=== PATIENT | female | born 1975 | race Caucasian/White ===

== ENCOUNTER 2023-03-05 23:14 | Emergency (ER) | payer OTHER, SELFPAY ==
[2023-03-05 23:20] VITALS: BP 148/82; PULSE 105; O2SAT 98
[2023-03-05 23:33] VITALS: BMI 28.1
--- NOTE | 2023-03-06 00:16 | ED.ALCOHOL ---
HPI - Alcohol General Chief Complaint: ETOH/Substance Use Stated Complaint: ETOH, VOMITING Time Seen by Provider: 03/06/23 00:16 Source: patient and EMS Mode of arrival: EMS Limitations: no limitations History of Present Illness HPI narrative: 48-year-old female came in by ambulance after drank alcohol last night. Patient had her 25th reunion anniversary and got to drink last night, patient felt nauseous and had 1 time vomiting. Patient now admitted that she has strong and feeling embarrassed about it patient would like to go home, able to tolerate p.o. intake with no nausea or vomiting. Patient has no abdominal pain. Review of Systems Review of Systems: All other systems are reviewed and are negative Constitutional: Reports as per HPI and Reports no additional constitutional complaints Eyes: Reports as per HPI and Reports no additional eye complaints Reports system reviewed and no additional complaints, except as documented Cardiovascular: Reports as per HPI and Reports no additional cardiovascular complaints Respiratory: Reports as per HPI and Reports no additional respiratory complaints Gastrointestinal: Reports as per HPI and Reports no additional gastrointestinal complaints Genitourinary: Reports no additional female genitourinary complaints Musculoskeletal: Reports no additional musculoskeletal complaints Skin/Breast: Reports system reviewed and no additional complaints, except as docu Psychiatric: Reports no additional psychiatric complaints Endocrine: Reports no additional endocrine complaints Hematologic/Lymphatic: Reports no additional hematologic/lymphatic complaints Allergic/Immunologic: Reports no additional allergic/immunologic complaints Reports system reviewed and no additional complaints, except as documented and Reports Abnormal speech present Physical Exam ED Vital Signs: BMI result Body Mass Index 28.1 Vital signs have been reviewed and appear to be correct. Blood pressure elevated. Heart rate normal. Respiratory rate normal. Temperature normal. Oxygen saturation normal. Appearance: Alert. Oriented X3. No acute distress. Head: Normal external exam. Normocephalic. Atraumatic. No Burden signs noted. No raccoon eyes noted Eyes: PERRLA. EOMI. Conjunctiva and sclera normal. Eyelids normal. ENT: TM's Normal. Pharynx normal. Uvula midline. Moist mucous membranes. No trismus noted. No drooling noted. No muffled voice noted. Neck: Normal inspection. Neck supple. FROM. No adenopathy. Thyroid Normal. No meningeal signs. No neck mass noted. CVS: Normal heart rate and rhythm. Heart sound normal. No murmurs noted. Pulses normal throughout. Respiratory: No respiratory distress. Painless inspiration. Breath sounds normal. No wheezes/rales/rhonchi noted. Chest nontender. No accessory muscle usage noted or decreased air movement noted. Abdomen: Soft and nontender. Bowel sounds normal in all 4 quadrants. No distention noted. No organomegaly noted. No visible injury noted. Back: No CVA tenderness. Full range of motion noted. Skin: Skin warm and dry. Normal skin color. Normal skin turgor. No rashes/lesions/lacerations noted. Extremities: No lower extremity edema. Extremities exhibit normal range of motion. Extremities nontender. Neuro: Oriented X 3. Cranial nerve exam: II-XII are grossly intact No motor deficit. No sensory deficit. Reflexes normal. Course Reevaluation(s) Reevaluation #1: 48-year-old female got drunk after drinking lots of alcohol last night, patient now feels better and able to tolerate p.o. intake with no nausea or vomiting patient will be discharged with family member to drive her home. Time: 00:25 Medical Decision Making Differential Diagnosis Differential Diagnoses: The differential diagnosis associated with the presentation includes (Alcohol intoxication, mild alcoholic gastritis, vomiting.) Admission/Observation Consideration of admission/observation: Escalation of care including admission/observation considered Discharge Plan Discharge Clinical Impression: Alcoholic intoxication Patient Disposition: Home, Self-Care Instructions: Alcohol Intoxication (ED)
[2023-03-06 00:36] VITALS: BP 121/68; PULSE 110; RESP 18; TEMP 36.2; O2SAT 100
--- NOTE | 2023-03-06 00:36 | MHC.EDTECH ---
Pt vital signs taken. Pt has two visitors at bedside.
== END 2023-03-06 01:04 | disposition home or self-care (01) ==
PROVIDERS: Emergency Provider Emergency Medicine
DX: F10.129 Alcohol abuse with intoxication, unspecified (principal); Y90.9 Presence of alcohol in blood, level not specified
CPT/HCPCS: 99282; 99284

== ENCOUNTER 2023-07-13 12:33 | Outpatient (REF) | payer MEDICAID, SELFPAY ==
--- NOTE | ~2023-07-13 | XR_ITS ---
EXAMINATION: BILATERAL SHOULDERS, BILATERAL ANKLES CLINICAL INFORMATION: Bilateral shoulder and bilateral ankle pain. COMPARISON: None available. TECHNIQUE: 3 views each shoulder, 3 views each ankle. FINDINGS: LEFT SHOULDER: The glenohumeral joint is intact. Gudy-lj-psoybjsk degenerative changes are seen at the AC joint. There is a small area of calcification at the insertion of the supraspinatus tendon on the humeral head. No fractures or subluxations. RIGHT SHOULDER: The glenohumeral joint is intact with the exception of a tiny osteophyte at the inferior glenoid. Xurx-cs-rflhrnmp degenerative changes are seen at the AC joint. There is a tiny area of calcification at the insertion of the supraspinatus tendon on the humeral head. No fractures or subluxations. LEFT ANKLE: Degenerative changes are present with some osteophytes at the tip of the medial malleolus. Some irregularity at the tip of the lateral malleolus with some well-corticated osseous densities probably secondary to remote trauma. A small ankle joint effusion may be present. No acute fractures or dislocations. Tiny plantar calcaneal spur is noted. RIGHT ANKLE: Aside from the presence of a tiny plantar calcaneal spur, no significant bone or joint abnormality is seen. XR/XR ankle RT min 3V IMPRESSION: 1. Degenerative changes in both shoulders with calcific tendinitis. 2. Degenerative changes in the left ankle with probable remote trauma. 3. Tiny plantar calcaneal spurs.
--- NOTE | ~2023-07-13 | XR_ITS ---
EXAMINATION: BILATERAL SHOULDERS, BILATERAL ANKLES CLINICAL INFORMATION: Bilateral shoulder and bilateral ankle pain. COMPARISON: None available. TECHNIQUE: 3 views each shoulder, 3 views each ankle. FINDINGS: LEFT SHOULDER: The glenohumeral joint is intact. Hbie-vf-ofiyfaiy degenerative changes are seen at the AC joint. There is a small area of calcification at the insertion of the supraspinatus tendon on the humeral head. No fractures or subluxations. RIGHT SHOULDER: The glenohumeral joint is intact with the exception of a tiny osteophyte at the inferior glenoid. Kfuy-xk-hmfqjeru degenerative changes are seen at the AC joint. There is a tiny area of calcification at the insertion of the supraspinatus tendon on the humeral head. No fractures or subluxations. LEFT ANKLE: Degenerative changes are present with some osteophytes at the tip of the medial malleolus. Some irregularity at the tip of the lateral malleolus with some well-corticated osseous densities probably secondary to remote trauma. A small ankle joint effusion may be present. No acute fractures or dislocations. Tiny plantar calcaneal spur is noted. RIGHT ANKLE: Aside from the presence of a tiny plantar calcaneal spur, no significant bone or joint abnormality is seen. XR/XR ankle LT min 3V IMPRESSION: 1. Degenerative changes in both shoulders with calcific tendinitis. 2. Degenerative changes in the left ankle with probable remote trauma. 3. Tiny plantar calcaneal spurs.
--- NOTE | ~2023-07-13 | XR_ITS ---
EXAMINATION: BILATERAL SHOULDERS, BILATERAL ANKLES CLINICAL INFORMATION: Bilateral shoulder and bilateral ankle pain. COMPARISON: None available. TECHNIQUE: 3 views each shoulder, 3 views each ankle. FINDINGS: LEFT SHOULDER: The glenohumeral joint is intact. Olvi-uq-jecbpmzh degenerative changes are seen at the AC joint. There is a small area of calcification at the insertion of the supraspinatus tendon on the humeral head. No fractures or subluxations. RIGHT SHOULDER: The glenohumeral joint is intact with the exception of a tiny osteophyte at the inferior glenoid. Ucmi-fq-tyomwdmm degenerative changes are seen at the AC joint. There is a tiny area of calcification at the insertion of the supraspinatus tendon on the humeral head. No fractures or subluxations. LEFT ANKLE: Degenerative changes are present with some osteophytes at the tip of the medial malleolus. Some irregularity at the tip of the lateral malleolus with some well-corticated osseous densities probably secondary to remote trauma. A small ankle joint effusion may be present. No acute fractures or dislocations. Tiny plantar calcaneal spur is noted. RIGHT ANKLE: Aside from the presence of a tiny plantar calcaneal spur, no significant bone or joint abnormality is seen. XR/XR shoulder RT min 2V IMPRESSION: 1. Degenerative changes in both shoulders with calcific tendinitis. 2. Degenerative changes in the left ankle with probable remote trauma. 3. Tiny plantar calcaneal spurs.
--- NOTE | ~2023-07-13 | XR_ITS ---
EXAMINATION: XR LUMBOSACRAL SPINE CLINICAL INFORMATION: Low back pain. COMPARISON: None available. TECHNIQUE: Three views of the lumbosacral spine. FINDINGS: There are some mild spondylitic endplate changes with some osteophytes, however vertebral body heights and disc spaces are well maintained. No bony destructive lesions, fractures or subluxations are seen. XR/XR lumbar spine 2-3V IMPRESSION: Mild spondylitic changes. No acute finding.
--- NOTE | ~2023-07-13 | XR_ITS ---
EXAMINATION: BILATERAL SHOULDERS, BILATERAL ANKLES CLINICAL INFORMATION: Bilateral shoulder and bilateral ankle pain. COMPARISON: None available. TECHNIQUE: 3 views each shoulder, 3 views each ankle. FINDINGS: LEFT SHOULDER: The glenohumeral joint is intact. Toob-yk-cugllqqs degenerative changes are seen at the AC joint. There is a small area of calcification at the insertion of the supraspinatus tendon on the humeral head. No fractures or subluxations. RIGHT SHOULDER: The glenohumeral joint is intact with the exception of a tiny osteophyte at the inferior glenoid. Hijj-hm-mpsjqhtc degenerative changes are seen at the AC joint. There is a tiny area of calcification at the insertion of the supraspinatus tendon on the humeral head. No fractures or subluxations. LEFT ANKLE: Degenerative changes are present with some osteophytes at the tip of the medial malleolus. Some irregularity at the tip of the lateral malleolus with some well-corticated osseous densities probably secondary to remote trauma. A small ankle joint effusion may be present. No acute fractures or dislocations. Tiny plantar calcaneal spur is noted. RIGHT ANKLE: Aside from the presence of a tiny plantar calcaneal spur, no significant bone or joint abnormality is seen. XR/XR shoulder LT min 2V IMPRESSION: 1. Degenerative changes in both shoulders with calcific tendinitis. 2. Degenerative changes in the left ankle with probable remote trauma. 3. Tiny plantar calcaneal spurs.
== END 2023-07-13 12:34 | disposition home or self-care (01) ==
LOC: HO.HMGCX 12:33
PROVIDERS: PCP Internal Medicine; Visit Provider Internal Medicine
DX: M54.50 Low back pain, unspecified (principal); M25.572 Pain in left ankle and joints of left foot; M25.571 Pain in right ankle and joints of right foot; M25.511 Pain in right shoulder; M25.512 Pain in left shoulder
CPT/HCPCS: 72100; 73030; 73610

== ENCOUNTER 2023-08-04 09:05 | Outpatient (REF) | payer MEDICAID, SELFPAY | END 2023-08-04 09:06 | disposition home or self-care (01) | LOC: HO.MAMMO 09:05 | PROVIDERS: PCP Internal Medicine; Visit Provider Internal Medicine | DX: Z12.31 Encounter for screening mammogram for malignant neoplasm of breast (principal) | CPT/HCPCS: 77063; 77067 ==

== ENCOUNTER → 2023-08-04 09:30 | Outpatient (BNV) | payer MEDICAID, SELFPAY | PROVIDERS: PCP Internal Medicine; Visit Provider Radiology Diagnostic Radiology | DX: Z12.31 Encounter for screening mammogram for malignant neoplasm of breast (principal) | CPT/HCPCS: 77063; 77067 ==

== ENCOUNTER 2023-09-15 07:36 | Outpatient (AMB) | payer MEDICAID, SELFPAY ==
[2023-09-15 07:52] VITALS: BP 122/74; BMI 28.1
--- NOTE | 2023-09-15 07:52 | MHC.OFFVIS ---
Vital Signs 09/15/23 07:52 Height 5 ft 9 in Weight 190 lb BMI 28.1 BP 122/74 Intake Visit Reasons: new patient Annual Intake Note: no concerns Manager Psychology Required: No Information Interpreted: non-clinical & clinical Sterile Processing Manager: Sterile Processing Manager Present (Miracle RAMIREZ) Accompanied by: Self / Same As Patient Allergies morphine Allergy (Intermediate, Verified 09/15/23 07:55) Headache Is last menstrual period known: No (hysterectomy) HPI Comments Details: Presenting for annual exam. No complaints. Last Pap/HPV was a year ago was negative, no history of abnormal Pap smear, the patient is status post TVH for prolapse Last Mammogram was BI-RADS 1 in 08/02 Last Colonoscopy was a year ago, the recommendation according to patient was to repeat in 5 years, the records are not available [facility] Medical History (Updated 09/15/23 @ 08:25 by Roger Cruz MD) Kidney stones Arthritis Asthma Diabetes Migraine Surgical History (Updated 09/15/23 @ 08:26 by Roger Cruz MD) History of hysterectomy Family History Mother Asthma Father Heart attack Paternal Grandmother Diabetes Social History Household Members: Children Housing: Apartment Alcohol intake: current Alcohol intake frequency: holidays/special occasions only Patient Tobacco Use Status: Former Tobacco user Tobacco use type: Cigarette Current occupational status: employed 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 Sexually active: Yes Sexual orientation: Straight/Heterosexual Gender identity: Female Female Reproductive History Menstrual Menopause type: surgical Total pregnancies: 5 Full term: 3 Number of Living Children: 3 Ab spontaneous: 2 Date of Mammogram: 08/04/23 Review of Systems Const All systems reviewed & are unremarkable except as noted in HPI and below Card Reports as per HPI and Reports no additional complaints Resp Reports as per HPI and Reports no additional complaints GI Reports as per HPI and Reports no additional complaints Reports as per HPI Physical Exam Vital Signs: Last Vital Signs BP 122/74 09/15/23 07:52 BMI result Body Mass Index 28.1 Const General: cooperative, healthy appearing and comfortable General: Yes bladder normal to palpation External Female Exam: No lesion Speculum Exam - Vagina: normal appearance of the vagina, normal vaginal discharge and not erythematous Speculum Exam - Cervix: Cervix absent Bimanual exam- vagina & uterus: bladder normal to palpation and uterus absent Bimanual Exam- Adnexa, other: Other (No masses detected) Assessment & Plan Assessment & Plan (1) Well woman exam: Code(s): Z01.419 - Encounter for gynecological examination (general) (routine) without abnormal findings Category: Medical Plan: Cotesting not indicated. Instructions given the patient to schedule next screening Mammogram in 08/03. Counseled the patient about the recommended dietary allowance of 1000 mg of Calcium & 600 IU of vitamin D. The patient was instructed to perform monthly self-breast exams and to schedule an annual exam in a year; All questions answered and the patient verbalized understanding. Instructed the patient to schedule annual exam in a year Coding Level of Care Code New Pt Prev Care 40-64y(67764) Diagnoses Well woman exam Z01.419
== END 2023-09-15 08:31 | disposition home or self-care (01) ==
PROVIDERS: PCP Internal Medicine; Visit Provider Obstetrics & Gynecology
DX: Z01.419 Encounter for gynecological examination (general) (routine) without abnormal findings (principal)
CPT/HCPCS: 99386

== ENCOUNTER → 2023-09-15 07:36 | Outpatient (BNVA) | payer MEDICAID, SELFPAY | PROVIDERS: PCP Internal Medicine; Visit Provider Obstetrics & Gynecology | DX: Z01.419 Encounter for gynecological examination (general) (routine) without abnormal findings (principal) | CPT/HCPCS: 99386 ==

== ENCOUNTER → 2024-02-08 08:00 | Outpatient (BNVA) | payer OTHER, SELFPAY | PROVIDERS: PCP Internal Medicine; Visit Provider Internal Medicine | DX: Z13.89 Encounter for screening for other disorder (principal) | CPT/HCPCS: 73130; 99202 ==

== ENCOUNTER → 2024-02-10 08:01 | Outpatient (BNVA) | payer OTHER, SELFPAY | PROVIDERS: PCP Internal Medicine; Visit Provider Internal Medicine | DX: Z13.89 Encounter for screening for other disorder (principal) | CPT/HCPCS: 99213 ==

== ENCOUNTER 2024-06-01 06:19 | Outpatient (REF) | payer MEDICAID, SELFPAY ==
[2024-06-01 06:11] LABS: MANUAL DIFF FLAG NO
--- OUTSIDE RECORDS SUMMARY | 2024-06-01 06:21 | XMS_ITS ---
Author Organization [facility] Address [address] [facility] [address] [place] [id number] Care Team Providers Care Sporting Goods Sales Associate Name Role Phone Frank Duffy MD Primary Care Provider Unavailab Isra Hsieh Unavailable [phone] REASON FOR VISIT please lock 05-30-24 note Encounters Encounter Location Date Provider Diagnosis [facility] [address] [facility] [address] [place] [phone] 05/31/2024 Isra Muñoz PLAN OF TREATMENT Next Appt Details Provider Name:Isra Muñoz , 06/01/2024 03:00:00 PM, [address] [place] [address] , [place], [place], [phone],
--- OUTSIDE RECORDS SUMMARY | 2024-06-01 06:21 | XMS_ITS ---
Author Organization [facility] Address [address] [place] [address] Care Team Providers Care Blending Tank Tender Helper Name Role Phone Frank Duffy MD Primary Care Provider Isra Stephenson Unavailable [phone] REASON FOR VISIT Patient presents today for [...] pain, epigastric (R10.13) Active confirmed Epigastric pain (00008940) Problem Chronic GERD (K21.9) Active confirmed Gastroesophagea l reflux disease (disorder) (100750741) VITAL SIGNS BMI 27.61 kg/m2 05/30/2024 Blood pressure systolic 001 mm Hg 05/30/19 25 Blood pressure diastolic 01 mm Hg 025 Height 69 in 05/30/2024 Temperature 98.0 degrees Fahrenheit 05/30/19 25 Weight 187 lbs 05/30/2024 Encounters Encounter Location Date Provider Diagnosis [facility] [address] [place] [address] 05/30/2024 Isra Muñoz Abdominal pain, epigastric R10.13 [...] UPPER GI ENDOSCOPY 05/30/2024 Next Appt Details Follow Up: prn, Reason: Provider Name:Isra Muñoz , 06/01/2024 03:00:00 PM, [address] [place] [address] , [place], [place], [phone], Progress Notes * Examination Category Sub-Category Detail Notes General Examination GENERAL APPEARANCE: pleasant , well nourished, well developed, in no acute distress HEAD: EYES: sclera non-icteric EARS: NOSE: THROAT: NECK/THYROID: no cervical lymphade nopathy, neck supple HEART: S1, S2 normal CHEST: LUNGS: clear to auscultatio n bilaterally ABDOMEN: normal bowel sounds, no guarding or rigidity, no guarding or rigidity, no masses palpable, soft, nontender, nondistended NEUROLOGIC: alert and oriented SKIN: nonjaundiced, no spi jeferson angiomata EXTREMITIES: no edema PERIPHERAL PULSES: BACK: BREASTS: MUSCULOSKELETAL: MALE GENITOURINARY: LYMPH NODES: RECTAL EXAM: FEMALE GENITOURINARY: ORAL CAVITY: mucosa moist
--- OUTSIDE RECORDS SUMMARY | 2024-06-01 06:21 | XMS_ITS | Patient Health Record ---
Author Organization [facility] Address [address] [facility] [address] [place] [address] Care Team Providers Care Compliance Review Officer Name Role Phone Frank Duffy MD Primary Care Provider Unavailab Isra Hsieh Unavailable [phone] REASON FOR REFERRAL Referring Provider First Name Frank Referring Provider Last Name Tati Referring Provider Speciality Internal M edicine Referred Organization [facility] Referred Provider Isra Muñoz Referred Address [address] [place] [address],[address],[place], [place],[address], Referred Provider Specialty Gastroentero logy Referral Priority Routine MEDICATIONS Medication SIG (Take, Route, Frequency, Duration) Notes Start Date End Date Status Zofran 4 MG 1 tab Orally qid for as needed Active metFORMIN HCl 1000 MG 1 tablet with a me al Orally Once a day for 30 days 05/30/2024 Active Protonix 40 MG 1 tablet 1/2 to 1 ho ur before morning meal Orally Once a day for 30 day(s) Active Vicodin ES Active Arnuity Ellipta 100 [...] as needed Orally every 12 hrs Active IMMUNIZATIONS Vaccine Route Administration Date Status [...] pain, epigastric (R10.13) Active confirmed Epigastric pain (83920243) Problem Chronic GERD (K21.9) Active confirmed Gastroesophagea l reflux disease (disorder) (379943277) VITAL SIGNS Temperature 98.0 degrees Fahrenheit 05/30/2024 Blood pressure diastolic 01 mm Hg 05/30/2024 Height 69 in 05/30/2024 Blood pressure systolic 001 mm Hg 05/30/2024 Weight 187 lbs 05/30/2024 BMI 27.61 kg/m2 05/30/2024 Encounters Encounter Location Date Provider Diagnosis [facility] [place] [address] [place] [id number] 06/01/2024 Isra Muñoz [facility] [address] [place] [address] 05/30/2024 Isra Muñoz Abdominal pain, epigastric R10.13 and Chronic GERD K21.9 [facility] [address] [place] [address] 05/31/2024 Isra Muñoz ASSESSMENTS Encounter Date Diagnosis Assessment Notes Treatment Notes Treatment Clinical Notes 05/30/2024 Abdominal pain, epigastric (ICD-10 - R10.13) 05/30/2024 Chronic GERD (ICD-10 - K21.9) PLAN OF TREATMENT Pending Test Test Name Order Date LIVER PROFILE 05/30/2024 CBC w DIFF 05/30/2024 Lipase 05/30/2024 US abdomen complete 05/30/2024 Future Test Test Name Order Date UPPER GI ENDOSCOPY 05/30/2024 Next Appt Details Provider Name:Isra Jayne Muñoz , 06/01/2024 03:00:00 PM, [address] [place] [address] , [place], [place], [phone], Insurance Providers Payer Name Payer Address Payer Phone Subscriber Number Group Number Insured Name Patient Relationship to Insured Coverage Start Date Coverage End Date MEDICAID OF [employer] [address] [place]OB [phone] [id number] BO WAKEFIELD Self - patient is the insured MEDICAL (GENERAL) HISTORY Medical History History ICD Code NIDDM Asthma Denies NV,CVA,renal disease Kidney stones Muscle spasms, tendonitis, arthritis Colonoscopy in 2021 in [facility]--polyps removed--recommended a F/U in 5-7 years Surgical History Surgery Date(Month/Year) Hysterectomy D&C
--- OUTSIDE RECORDS SUMMARY | 2024-06-01 06:21 | XMS_ITS | Continuity of Care Document ---
Author Organization [facility] Address [address] [place] [address] Phone Care Team Providers Care Truck Farmer Name Role Phone Roly Myles MD Unavailable [facility], [address] [facility], [place], [place], [id number], [place] tel:[phone] [facility] Carm[facility]aels left ankle 2011 previous ankle fracture (chief complaint) Sprain/strai n, ankle NOSRupture, tendons, foot/ankle NECDerangeme nt, other joint NEC, ankle/ 4 Shar Tyson. [address] [facility] [address], [address], [place], [place], [id number], [place]. tel:[phone] Referring Provider: Pepper COLON , [address], [place], [address]. tel:[phone] [facility], [address] [facility] [address] [place] [address], [place], [place], [id number], [place] tel:[phone] [facility] No Information 4 Shar Tyson. [address], [address], [place], [place], [address], [place]. tel:[phone] [facility], [address] [facility] [address] [facility] [address], [place], [place], [id number], [place] tel:[phone] [facility] No Information 4 Shar Tyson. [address] [facility] [address], [address], [place], [place], [address], [place]. tel:[phone] Office/outpatie nt visit,est, Strt Fwd [facility], [address], [place], [place], [id number], [place] tel:[phone] [facility] Sprain/strai n, ankle NOS 2 No Information Office/outpatie nt visit,new, Straightforward [facility], [address] [facility] [address], [place], [place], [id number], [place] tel:[phone] [facility] Sprain/strai n, ankle NOSSprain/st rain, ankle NOSSprain/st rain, ankle NOS 2 Sabrowski PAC Tom. [address], [address], [place], [place], [id number], [place]. tel:[phone] [facility], [address] [facility] [address], [place], [place], [id number], [place] tel:[phone] [facility] No Information 2 Sabrhondaki PAC Tom. [address], [address], [place], [place], [id number], [place]. tel:[phone] Family History Family Member Type Diagnosis Age [...] ID Authoriza tion(s) [employer] PPO 26 CI [id number] Social History Type Description Quantity Date Captured [...]
[2024-06-01 07:43] LABS: Basophils Absolute Auto 0.1 X10*3/uL (0.0-0.2); Basophils Percent Auto 0.7 % (0-2); Eosinophils Absolute Auto 0.4 X10*3/uL (0.0-0.4); Hematocrit 31.6 % (37.0-47.0); Hemoglobin 9.9 g/dl (12.0-16.0); Imm Gran Abs Auto 0.02 X10*3/uL (0.00-0.03); Imm Gran Pct Auto 0.3 % (0.0-0.4); Lymphocytes Absolute Auto 2.5 X10*3/uL (1.2-4.9); Lymphocytes Percent Auto 33.3 % (20-40); Mean Corpuscular HGB Conc 31.3 g/dl (31.0-35.0); Mean Corpuscular Hemoglobin 25.1 pg (27.0-33.0); Mean Corpuscular Volume 80.2 fL (80.0-98.0); Monocytes Absolute Auto 0.7 X10*3/uL (0.1-1.2); Monocytes Percent Auto 8.5 % (2-11); Neutrophils Percent Auto 52.2 % (45-73); Platelet Count 354 X10*3/uL (160-400); Red Blood Count 3.94 X10*6/uL (4.20-5.50); Red Cell Distribution Width 12.8 % (11.0-16.0); White Blood Count 7.6 X10*3/uL (4.8-10.8)
[2024-06-01 08:23] LABS: Alanine Aminotransferase 12 U/L (0-31); Albumin Level 3.7 g/dL (3.5-5.0); Aspartate Amino Transferase 17 U/L (5-31); Bilirubin Direct 0.1 mg/dL (0.0-0.5); Bilirubin Total 0.7 mg/dL (0.0-1.0); Lipase 17 U/L (8-78); Total Protein 6.2 g/dL (6.5-8.0)
[2024-06-01 08:59] LABS: Alkaline Phosphatase 49 U/L (39-117)
== END 2024-06-01 06:20 | disposition home or self-care (01) ==
LOC: HO.LAB 06:19
PROVIDERS: PCP Internal Medicine; Visit Provider Internal Medicine
DX: R10.13 Epigastric pain (principal); K21.9 Gastro-esophageal reflux disease without esophagitis
CPT/HCPCS: 36415; 80076; 83690; 85025

== ENCOUNTER 2024-06-01 13:47 | Day surgery (SDC) | payer MEDICAID, SELFPAY ==
--- OUTSIDE RECORDS SUMMARY | 2024-05-31 06:28 | XMS_ITS | Continuity of Care Document ---
Author Organization [facility] Address [address] [place] [address] Phone Care Team Providers Care Fishing Captain Name Role Phone Roly Myles MD Unavailable Unavailable Allergies, Adverse Reactions, Alerts Substance Reaction Status Criticality No Known Allergies Active No Inform ation Medications Medication Instructions Dosage Effective Dates (start - stop) Status Comments Advair Diskus 250 mcg-50 mcg/dose powder for inhalation inhale 1 puff by inhalation route 2 times every day in the morning and evening approximately 12 hours apart 1.00 puff - Active lisinopril 20 mg tablet take 1 tablet by oral route every day 20 MG - Active Singulair 10 mg tablet take 1 tablet by oral route every day in the evening 10 MG - Active Tylenol Extra Strength 500 mg tablet take 1 tablet by oral route every 6 hours as needed 500 MG - Active ProAir HFA 90 mcg/actuation Aerosol Inhaler inhale 2 puff by inhalation route every 4 - 6 hours as needed - Active ibuprofen 600 mg tablet take 1 tablet by oral route 3 times every day with food 600 MG - Active ibuprofen 200 mg tablet take 1 tablet by oral route every 6 hours as needed with food 200 MG - No Longer Active Procedures Procedure Date Foot Xrays, 3 Views Foot Xrays, 3 Views Ankle Xrays, 2 views Ankle Xrays, 2 views Office/outpatient visit,est, mod 2013 Ankle Xrays, 3 Views Office/outpatient visit,est, Strt Fwd Se Ankle Brace, Sports Orthosis Lace Up, M Office/outpatient visit,new, Straightfor luna Grid Iron XR Walker, M Advance Directives Directive Yes / No Effective Date File Name No Information Encounters Encounter Description Practice Location Reason(s) For Visit Diagnoses Date Provider Providers Copied on Encounter Office/outpatie nt visit,est, mod [facility], [address] [facility] [place], [place], [id number], [place] tel:[phone] [facility] left ankle 2011 previous ankle fracture (chief complaint) Sprain/strai n, ankle NOSRupture, tendons, foot/ankle NECDerangeme nt, other joint NEC, ankle/ 4 Shar Tyson. [address] [facility] [address], [address], [place], [place], [id number], [place]. tel:[phone] Referring Provider: Pepper COLON , [address], [place], [address]. tel:[phone] [facility], [address] [facility] [address] [place] [address], [place], [place], [id number], [place] tel:[phone] [facility] No Information 4 Shar Tyson. [address], [address], [place], [place], [id number], [place]. tel:[phone] [facility], [address] [facility] [address] [facility] [address], [place], [place], [id number], [place] tel:[phone] [facility] No Information 4 Shar Tyson. [address] [facility] [address], [address], [place], [place], [id number], [place]. tel:[phone] Office/outpatie nt visit,est, Strt Fwd [facility], [address], [place], [place], [id number], [place] tel:[phone] [facility] Sprain/strai n, ankle NOS 2 No Information Office/outpatie nt visit,new, Straightforward [facility], [address] [address], [place], [place], [id number], [place] tel:[phone] [facility] Sprain/strai n, ankle NOSSprain/st rain, ankle NOSSprain/st rain, ankle NOS 2 [facility] PAC Tom. [address], [address], [place], [place], [id number], [place]. tel:[phone] [facility], [address] [address], [place], [place], [id number], [place] tel:[phone] [facility] No Information 2 [facility] Tom. [address], [address], [place], [place], [id number], [place]. tel:[phone] Family History Family Member Type Diagnosis Age At Onset Father Problem (finding) Unknown (Cause Of ) 58 Father Problem (finding) dementia 58 Father Problem (finding) hypertension 58 Father Problem (finding) Myocardial infarction 5 8 Problem (finding) Family history of malignant neoplasm of breast in first degree relative Mother Problem (finding) Alive and well Problem (finding) Family history of Diabe mony mellitus Problem (finding) Family history of Aneur ysm Mother Problem (finding) asthma Payers Payer name Insurance type Covered democrat ID Authoriza tion(s) [employer] PPO 26 CI [id number] Social History Type Description Quantity Date Captured Comments Alcohol Use Details Caffeine Use Details Unknown Tobacco Use Status Smoking Status No Information Sex Female Vital Signs Date / Time: Height Weight BMI Pulse Rate Blood Pressure Temperature Respiratory Rate Body Surface Area Head Circumference Head Circ. Percentile Wt./Erickson. Percentile BMI percentile Pulse Ox Inhaled Ox 11:46 AM 69.00 in 104.326 kg (230.00 lbs) 33.9 6 kg/m eter (2) 68 /min 140/70 mm[Hg] Chief Complaint And Reason For Visit From encounter dated '01/24/2014 11:00'. left ankle 2012 previous ankle fracture (chief complaint). Description: Melisa Lacey is a 39 year old female. SYMPTOMS 2012 previous ankle fracture. ONSET: chronic traumatic. PLACE OF INJURY: Previous left foot and ankle fracture. WORK STATUS: not currently working. Reason For Referral Reason For Referral No Information History Of Present Illness Encounter Date Complaint History Of Prese nt Illness left ankle 2012 prev ious ankle fracture Melisa Lacey is a 39 year old female. SYMPTOMS 2012 previous ankle fracture. ONSET: chronic traumatic. PLACE OF INJURY: Previous left foot and ankle fracture. WORK STATUS: not currently working. Functional Status Date Functional Assessmen t No Information Instructions Date Instruction Additional Infor mation No Information Assessments Type Assessment Date No Information Patient Care Teams Name Effective Dates (start - stop) Status Members No Information
--- OUTSIDE RECORDS SUMMARY | 2024-05-31 06:28 | XMS_ITS ---
Author Organization [facility] Address [address] [place] [address] Care Team Providers Care Habilitative Interventionist Name Role Phone Frank Duffy MD Primary Care Provider Isra Stephenson [phone] REASON FOR VISIT Patient presents today for a mild external compression of the esophgaus MEDICATIONS Medication SIG (Take, Route, Frequency, Duration) Notes Start Date End Date Status metFORMIN HCl 1000 MG 1 tablet with a me al Orally Once a day for 30 days 05/30/2024 Active Vicodin ES Active Arnuity Ellipta 100 MCG/ACT 1 puff Inhalation Once a day Active Lisinopril 5 MG 2 tablets Orally Onc e a day Active Baclofen 10 MG/20ML as directed Intrathe matt Three times a day Active Claritin 10 MG 1 tablet Orally Once a day Active Doxycycline 40 MG 1 capsule in the mor emerson on an empty stomach Orally Once a day Active Albuterol Sulfate HFA 108 (90 Base) MCG/ACT 1 puff as needed Inhalation every 4 hrs Active Fioricet 50-300-40 MG 1 capsule as neede d Orally every 4 hrs Active Naproxen 500 MG 1 tablet with food o r milk as needed Orally every 12 hrs Active Zofran 4 MG 1 tab Orally qid for as needed Active Protonix 40 MG 1 tablet 1/2 to 1 ho ur before morning meal Orally Once a day for 30 day(s) Active IMMUNIZATIONS Vaccine Route Administration Date Status Comme nts Influenza Unknown 05/30/2024 Refused SOCIAL HISTORY Tobacco Use: Social History Observation Description Date Details (start date - stop date) Former Smoker NA - NA Sex Assigned At : Social History Observation Description Sex Assigned At Unknown Tobacco Use/Smoking Question Answer Notes Patient is a former smoker Alcohol Screen Question Answer Notes Did you have a drink containing alcohol in the p ast year? No Points 0 Interpretation Negative PROBLEMS Problem Type ICD Code Onset Dates Problem Status W/U Status Risk SNOMED Code Notes Problem Abdominal pain, epigastric (R10.13) Active confirmed Epigastric pain (20928409) Problem Chronic GERD (K21.9) Active confirmed Gastroesophagea l reflux disease (disorder) (301422810) VITAL SIGNS BMI 27.61 kg/m2 05/30/2024 Blood pressure systolic 001 mm Hg 05/30/19 25 Blood pressure diastolic 01 mm Hg 025 Height 69 in 05/30/2024 Temperature 98.0 degrees Fahrenheit 05/30/19 25 Weight 187 lbs 05/30/2024 Encounters Encounter Location Date Provider Diagnosis [facility] [address] [place] [address] 05/30/2024 Isra Muñoz Abdominal pain, epigastric R10.13 and Chronic GERD K21.9 ASSESSMENTS Encounter Date Diagnosis Assessment Notes Treatment Notes Treatment Clinical Notes 05/30/2024 Abdominal pain, epigastric (ICD-10 - R10.13) 05/30/2024 Chronic GERD (ICD-10 - K21.9) PLAN OF TREATMENT Pending Test Test Name Order Date LIVER PROFILE 05/30/2024 CBC w DIFF 05/30/2024 Lipase 05/30/2024 US abdomen complete 05/30/2024 Future Test Test Name Order Date UPPER GI ENDOSCOPY 05/30/2024 Next Appt Details Provider Name:Isra Muñoz , 06/01/2024 03:00:00 PM, [address] [place] [address] , [place], [place], [id number],
--- NOTE | 2024-06-01 13:57 | P.CONAN_ITS ---
HPI - Anesthesia Eval Consult details Narrative: upper egd PMFSH Active Problems Active Problems: All Active Problems Right hand pain (Acute ~02/07/24) Well woman exam (Acute) Past Medical History Medical History Kidney stones Arthritis Asthma Diabetes Migraine Family History Family History Mother Asthma Father Heart attack Paternal Grandmother Diabetes Family history of problems with anesthesia: No Surgical History Surgical History History of hysterectomy History of Problems with Anesthesia: No Social History Social History Household Members: Children Housing: Apartment Alcohol intake: current Alcohol intake frequency: holidays/special occasions only Patient Tobacco Use Status: Former Tobacco user Tobacco use type: Cigarette Advance Directives: No Advance Directives Information Provided: Yes Current occupational status: employed 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 Sexual orientation: Straight/Heterosexual Gender identity: Female Meds Allergies Allergy/AdvReac Type Severity Reaction Status Date / Time morphine Allergy Intermediate Headache Verified 09/15/23 07:55 Home Medications ?Medication ?Instructions ?Recorded ?Confirmed ?Last Taken ?Type albuterol sulfate 90 mcg/actuation 1 puff inhalation Q6H PRN wheezing 09/15/23 Unknown History aerosol inhaler (Ventolin HFA) baclofen 10 mg tablet 10 mg PO BID PRN 09/15/23 Unknown History giatfzhefd-bwnkubxlnqjfg-hiupufes 1 - 2 tab PO Q4H PRN 09/15/23 Unknown History 50 mg-325 mg-40 mg tablet fluticasone furoate 100 1 inh inhalation DAILY 09/15/23 Unknown History mcg/actuation blister powder for inhalation (Arnuity Ellipta) hydrocodone 5 mg-acetaminophen 325 1 tab PO BID 09/15/23 Unknown History mg tablet lisinopril 5 mg tablet 5 mg PO DAILY 09/15/23 Unknown History metformin 1,000 mg tablet 1,000 mg PO BID 09/15/23 Unknown History naproxen 500 mg tablet 500 mg PO BID 09/15/23 Unknown History Exam Airway Mallampati Class: II TM Dist: >3cm Neck ROM: Full Heart: rrr Lungs: cta Assessment and Plan Assessment Anesthesia Assessment: Anesthesia Plan Discussed Final Anesthetic Review Family History of Problems with Anesthesia: No History of Problems with Anesthesia: No NPO: Yes ASA Class: II Final Preanesthetic Review: No Changes in Pt Med Stat, Meds/Allgs Chart Reviewed, Consent Obtained/Reviewed and Anes Risks/Benef Reviewed Patient Risk: Intermediate Procedure Risk: Low Anesthetic Plan Anesthetic Plan: MAC: Disposition: Standard PACU
[2024-06-01 14:05] VITALS: BP 151/86; PULSE 79; RESP 16; TEMP 36.8; O2SAT 100; BMI 28.4
[2024-06-01 14:19] LABS: Glucose, Whole Blood 85 mg/dL (60-115)
--- NOTE | 2024-06-01 14:34 | PC.NURSE ---
Patient in preop. Blood sugar 85. Patient states I am a little dizzy . New order from Jonatan Ly CRNA for Dextrose 5% 250ML IV wide open now. IV started, tolerated well. Jonatan at bedside. Dextrose started.
[2024-06-01 14:57] VITALS: BP 135/77; PULSE 90; RESP 12; TEMP 36.7; O2SAT 97
[2024-06-01 15:12] VITALS: BP 152/84; PULSE 77; RESP 15; TEMP 37.1; O2SAT 98
--- NOTE | 2024-06-01 15:15 | P.BOP_ITS ---
Brief Operative Note Date of Service: 06/01/24 Pre-op diagnosis: Abdominal pain Post-op diagnosis: other (Gastric ulcers) Procedure: EGD with biopsies Surgeon: Isra Muñoz MD Anesthesia: MAC Was an Electrician Supervisor Substation used for this Procedure?: No Estimated blood loss (mL): 2.0 Pathology: other (A. Gastric antrum B. Gastric ulcer C. Proximal stomach) Condition: stable Disposition: PACU
--- NOTE | 2024-06-02 01:29 | OP_ITS ---
DATE OF SERVICE: 06/01/2024 SURGEON: Isra Muñoz MD INDICATIONS: The patient presents for evaluation of abdominal pain. Full consent has been obtained from her for this, including risks of bleeding and perforation. PREOPERATIVE DIAGNOSIS: Abdominal pain. POSTOPERATIVE DIAGNOSIS: PROCEDURE PERFORMED: Esophagogastroduodenoscopy with biopsies. ESTIMATED BLOOD LOSS: COMPLICATIONS: ANESTHESIA: Monitored anesthesia care. ASSISTANTS: SPECIMENS: POSTOPERATIVE DIAGNOSES: Abdominal pain, gastric ulcers, gastritis, duodenitis, hiatal hernia. DESCRIPTION OF PROCEDURE: The patient was placed in the left lateral decubitus position. The Olympus video gastroscope was passed in the posterior oropharynx and upper esophagus under direct vision. The scope was passed slowly to the distal esophagus. The gastroesophageal junction appeared at 30 cm. There was no sign of any esophagitis nor Taveras's esophagus. The scope entered the stomach. There was a moderate-sized hiatal hernia but with normal mucosa. The scope was advanced to the pylorus. The duodenum was cannulated to the descending portion. The duodenum including the bulb was carefully inspected. There was some duodenitis in the duodenal bulb with some edema and erythema but no ulceration. The 2nd and 3rd portions of duodenum appeared normal. The scope was withdrawn back in the stomach. The gastric antrum, had some areas of erythema and edema, but with good peristalsis. Biopsies were obtained. In the body of the stomach, at 50 cm, along the greater curvature, was an approximately 8-10 mm ulcer with some surrounding edema but benign in appearance. There were no stigmata of bleeding. Biopsies were obtained from the margins. The scope was retroflexed visualizing the proximal stomach carefully. In both the forward viewing position and in the retroflexed position, I was able to see an area of some edema, some overlying ulceration, and friability. There was no mass. There was no active bleeding. This appeared to be also along the greater curvature toward the anterior wall. It was at 40 cm. Multiple biopsies were obtained from the area as well. The remainder of the proximal stomach appeared normal in the retroflexed position. The scope was straightened and withdrawn back to the esophagus. The esophageal mucosa appeared normal. The scope was withdrawn from the patient. She tolerated the procedure well and was returned to the recovery area in stable condition. IMPRESSION: 1. Gastric ulcers, gastritis, rule out H pylori. 2. Duodenitis. 3. Hiatal hernia. PLAN: The results of the biopsies will be checked. If H pylori is present, I would recommend treating that. She has been on Protonix once a day but also uses naproxen on a BID regular basis. As such, I have advised to try to stop her naproxen and all NSAIDs completely. I shall increase Protonix to twice a day. We shall then see how she does from a clinical standpoint in regard to her pain. She did have some laboratory workup this morning that revealed a normal liver profile and lipase. However, she does have anemia with a hemoglobin of 9.9 and MCV of 80. She describes a colonoscopy in 2021 while living in [place] with removal of some polyps. I believe she is probably anemic in relation to the findings on today's upper endoscopy. I will have her start an iron supplement. Of note, in regard to her anemia, she does not have her menses as she is s/p a hysterectomy. She will be seen in followup. Of note, she is scheduled for an abdominal ultrasound in about 2 weeks and I told her to be sure to keep that appointment.. MD MINOO Hawk/DEMI / [id number] MTDTeresa
== END 2024-06-01 16:25 | disposition home or self-care (01) ==
PROVIDERS: PCP Internal Medicine; Visit Provider Internal Medicine
PROC: 0DJ08ZZ Inspection of Upper Intestinal Tract, Via Natural or Artificial Opening Endoscopic (ICD-10-PCS; CPT 43235; principal; 2024-06-01 15:00)
DX: K25.9 Gastric ulcer, unspecified as acute or chronic, without hemorrhage or perforation (principal); K29.50 Unspecified chronic gastritis without bleeding; K21.9 Gastro-esophageal reflux disease without esophagitis; K29.80 Duodenitis without bleeding; K44.9 Diaphragmatic hernia without obstruction or gangrene; D64.9 Anemia, unspecified; E11.9 Type 2 diabetes mellitus without complications; J45.909 Unspecified asthma, uncomplicated; M19.90 Unspecified osteoarthritis, unspecified site; M62.838 Other muscle spasm; Z87.442 Personal history of urinary calculi; Z79.1 Long term (current) use of non-steroidal anti-inflammatories (NSAID); Z79.51 Long term (current) use of inhaled steroids; Z79.899 Other long term (current) drug therapy; Z90.710 Acquired absence of both cervix and uterus; Z79.84 Long term (current) use of oral hypoglycemic drugs; Z87.891 Personal history of nicotine dependence
CPT/HCPCS: 43239; 82947; 88305; 88313; 88342; J2704

== ENCOUNTER 2024-06-22 05:54 | Outpatient (REF) | payer MEDICAID, SELFPAY ==
--- NOTE | ~2024-06-22 | US_ITS ---
EXAMINATION: US ABDOMEN HISTORY: EPIGASTRIC PAIN, ABDOMINAL PAIN TECHNIQUE: Real-time grayscale ultrasound imaging of the abdomen was performed and images were reviewed. COMPARISON: There are no prior studies for comparison. FINDINGS: Liver: The right lobe of the liver measures 18.5 cm in size. The left lobe of the liver measures 11.1 cm in size. The liver demonstrates mildly increased echotexture, consistent with steatosis. No focal mass or intrahepatic biliary ductal dilatation is identified. There is normal hepatopedal flow in the portal vein. Gallbladder and biliary tree: The gallbladder is unremarkable, without evidence of calculi, wall thickening, or pericholecystic fluid. There is no sonographic Reynoso sign. The common bile duct is normal in caliber measuring 7 mm. Kidneys: The right kidney measures 10.6 cm in length. The left kidney measures 11.9 cm in length. The kidneys are unremarkable, without evidence of masses, hydronephrosis, or calculi. Pancreas: The pancreatic head, neck, and body are unremarkable. The pancreatic tail is obscured by bowel gas. Spleen: The spleen is normal in size and contour, measuring 12.2 cm in length. Abdominal aorta and inferior vena cava: The visualized portions of the abdominal aorta and inferior vena cava are normal in caliber. There is no free fluid in the abdomen. US/US abdomen complete IMPRESSION: Hepatomegaly and hepatic steatosis. Otherwise unremarkable abdominal ultrasound. Electronically signed by: Isra Torres MD 06/22/2024 08:10 AM EDT
== END 2024-06-22 05:55 | disposition home or self-care (01) ==
LOC: HO.US 05:54
PROVIDERS: PCP Internal Medicine; Visit Provider Internal Medicine
DX: R10.13 Epigastric pain (principal)
CPT/HCPCS: 76700

== ENCOUNTER → 2024-06-22 05:58 | Outpatient (BNV) | payer MEDICAID, SELFPAY | PROVIDERS: PCP Internal Medicine; Visit Provider Radiology Diagnostic Radiology | DX: K76.0 Fatty (change of) liver, not elsewhere classified (principal); R16.0 Hepatomegaly, not elsewhere classified | CPT/HCPCS: 76700 ==

== ENCOUNTER 2024-07-12 06:02 | Outpatient (REF) | payer MEDICAID, SELFPAY ==
--- OUTSIDE RECORDS SUMMARY | 2024-07-12 06:04 | XMS_ITS | Patient Health Record ---
Author Organization [facility] Address [address] [place] [address] Care Team Providers Care Real Estate Investment Analyst Name Role Phone Frank Duffy MD Primary Care Provider UnavailIsra Strauss [phone] Results Component Value Reference Range Notes Lipase Reviewed date:06/01/2024 05:32:27 PM Interpretation: Performing Lab:[facility], [address] [place] [phone] Notes/Report: Lipase 17 8-78 U/L Complete Blood Count Auto Di ff Reviewed date:06/01/2024 05:28:58 PM Interpretation: Performing Lab:[facility], [address] [place] [phone] Notes/Report: White Blood Count 7.6 4.8-10.8 X10*3/uL Red Blood Count 3.94 4.20-5.50 X10*6/uL Hemoglobin 9.9 12.0-16.0 g/dl Hematocrit 31.6 37.0-47.0 % Mean Corpuscular Volume 80.2 80.0-98.0 fL Mean Corpuscular Hemoglobin 25.1 27.0-33.0 pg Mean Corpuscular HGB Conc 31.3 31.0-35.0 g/dl Red Cell Distribution Width 12.8 11.0-16.0 % Platelet Count 354 160-400 X10*3/uL Mean Platelet Volume 10.0 9.4-12.3 fL Neutrophils Percent Auto 52.2 45-73 % Imm Gran Pct Auto 0.3 0.0-0.4 % Lymphocytes Percent Auto 33.3 20-40 % Monocytes Percent Auto 8.5 2-11 % Eosinophils Percent Auto 5.0 0-4 % Basophils Percent Auto 0.7 0-2 % NRBC Pct Auto 0.0 0.0-0.2 /100WBC Neutrophils Absolute Auto 4.0 2.0-8.3 x10*3/u L Imm Gran Abs Auto 0.02 0.00-0.03 X10*3/uL Lymphocytes Absolute Auto 2.5 1.2-4.9 X10*3/u L Monocytes Absolute Auto 0.7 0.1-1.2 X10*3/uL Eosinophils Absolute Auto 0.4 0.0-0.4 X10*3/u L Basophils Absolute Auto 0.1 0.0-0.2 X10*3/uL NRBC Abs Auto 0.000 0.0-0.012 X10*3/uL Liver Panel Reviewed date:06/01/2024 05:31:48 PM Interpretation: Performing Lab:[facility], [address] [place] [phone] Notes/Report: Bilirubin Total 0.7 0.0-1.0 mg/dL Bilirubin Direct 0.1 0.0-0.5 mg/dL Aspartate Amino Transferase 17 5-31 U/L Alanine Aminotransferase 12 0-31 U/L Total Protein 6.2 6.5-8.0 g/dL Albumin Level 3.7 3.5-5.0 g/dL Alkaline Phosphatase 49 39-117 U/L Glucose, Whole Blood Reviewed date:06/01/2024 05:27:23 PM Interpretation: Performing Lab:[facility], [address] [place] [phone] Notes/Report: Glucose, Whole Blood 85 60-115 mg/dL METER # : [id number] Pathology (Not yet reviewed by provider) Interpretation: Performing Lab:[facility], [address] [place] [phone] Notes/Report: --- Name: Nahun Wakefield Age/Sex: 49/F : 1975 [facility]#: [id number] Unit#: [id number] Attend Dr: Isra Muñoz MD Re06/01/24 Status : [facility] Location: [facility] Disch: --- SPEC : [id number] RECD : 06/04/24 STATUS: HELEN TELLO NUM: [id number] ROBBIN: 06/01/24-[address] [facility] [address]: Isra Muñoz MD ENTERED: 06/04/24-12 07 SP TYPE: Surgical OTHR DR: Frank Duffy MD ORDERED: HE Stain/9, Gross Micro L4/3, IHC/3, Special st. 2/3, H. pylori/3, AB/PAS/3 Diagnosis A. Stomach, antrum, biopsy: Antral-type mucosa with moderate chronic active erosive inflammation; no Helicobacter organisms seen. B. Stomach, ulcer, biopsy: Antral-type mucosa with moderate chronic active erosive inflammation; no Helicobacter organisms seen. C. Stomach, proximal , biopsy: Oxyntic mucosa with moderate chronic, focally active, inflammation; no Helicobacter organisms seen. Clinical History Pre-Op Dx: Epigastri c pain, GERD Post-Op Dx: Hiatal hernia, gastric ulcer Microscopic Description A-C. Microscopic sections examined. No metaplastic changes are seen, supported by AB/PAS stains (A, B and C); no Helicobacter organisms are seen, supported by H. pylori immunostain (A, B and C). Material Received A. Gastric antrum bx B. Bx of gastric ulcer C. Proximal stomach bx Gross Description Received in three parts. Part A: Received in formalin labeled ?gastric antrum bx? are 4 kyle-galo irregular tissue fragments ranging fr om less than 0.1-0.3 cm, submitted in toto in a cassette labeled A. Part B: Received in formalin labeled ?bx of gastric ulcer? are 3 kyle-galo irregular and rectangular tissue fragments ranging 0.25 to 0.45 cm, submitted in toto in a cassette labeled B. Part C: Received in formalin labeled ?proximal stomach bx? are 3 galo irregular and rectangular tissue fragments ranging from 0.25-0.35 cm, submitted in toto in a cassette labeled C. CEDS Special studies orde red and performed: Immunostain for H. pylori on A, B and C; AB/PAS CONTINUED ON NEXT PAGE --- Name: Nahun Wakefield Age/Sex: 49/F : 1975 Unit#: [id number] Attend Dr: Isra Muñoz MD Re06/01/24 Status : [facility] Location: [facility] Disch: --- SPEC : [id number] RECD: 06/04/24 STATUS: HELEN RE NUM: [id number] ROBBIN: 06/01/24-[address] [facility] [address]: Isra Muñoz MD ENTERED: 06/04/24-12 07 SP TYPE: Surgical OTHR DR: Frank Duffy MD ORDERED: HE Stain/9, Gross Micro L4/3, IHC/3, Special st. 2/3, H. pylori/3, AB/PAS/3 Gross Description (Continued) stains on A, B and C Copies To: Frank Duffy MD [facility] [address] [place] [address] [place] [address] Isra Muñoz MD [address] [place] [address] --- Signed (signature on file) Vipul Lynne MD 06/06/24 1527 --- END OF REPORT US abdomen complete (Not yet reviewed by provider) Interpretation: Performing Lab: Notes/Report: [address] [address] Ultrasound Report Signed Patient: Bo Wakefield MR#: [id number] 520 : 1975 Acct:[id number] Age/Sex: 49 / F ADM Date: 06/22/24 Loc: HO.US Attending Dr: Isra Muñoz MD Ordering Physician: Isra Muñoz MD Date of Service: 06/22/24 Procedure(s): US abdomen complete Accession Number(s): [id number] cc: Frank Duffy MD; Isra Muñoz MD EXAMINATION: US ABDOMEN HISTORY: EPIGASTRIC PAIN, ABDOMINAL PAIN TECHNIQUE: Real-time grayscale ultrasound imaging of the abdomen was performed and images were reviewed. COMPARISON: There are no prior studies for comparison. FINDINGS: Liver: The right lobe of the liver measures 18.5 cm in size. The left lobe of the liver measures 11.1 cm in size. The liver demonstrates mildly increased echotexture, consistent with steatosis. No focal mass or intrahepatic biliary ductal dilatation is identified. There is normal hepatopedal flow in the portal vein. Gallbladder and biliary tree: The gallbladder is unremarkable, without evidence of calculi, wall thickening, or pericholecystic fluid. There is no sonographic Reynoso sign. The common bile duct is normal in caliber measuring 7 mm. Kidneys: The right kidney measures 10.6 cm in length. The left kidney measures 11.9 cm in length. The kidneys are unremarkable, without evidence of masses, hydronephrosis, or calculi. Pancreas: The pancreatic head, neck, and body are unremarkable. The pancreatic tail is obscured by bowel gas. Spleen: The spleen is normal in size and contour, measuring 12.2 cm in length. Abdominal aorta and inferior vena cava: The visualized portions of the abdominal aorta and inferior vena cava are normal in caliber. There is no free fluid in the abdomen. US/US abdomen complete IMPRESSION: Hepatomegaly and hepatic steatosis. Otherwise unremarkable abdominal ultrasound. Electronically signed by: Isra Torres MD 06/22/2024 08:10 AM EDT Dictated By: Isra Torres MD Signed By: <Electronically signed by Isra Torres MD in OV> 06/22/24 0810 DD/ 0715 TD/TT: 06/22/24 0745 Riprap Worker: [place] [id number] Ultrasound Report Signed Patient: Bo aWkefield MR#: [id number] 520 : 1975 Acct:[id number] Age/Sex: 49 / F ADM Date: 06/22/24 Loc: . Attending Dr: Isra Muñoz MD Ordering Physician: Isra Muñoz MD Date of Service: 06/22/24 Procedure(s): US abdomen complete Accession Number(s): [id number] cc: Frank Duffy MD; Isra Muñoz MD EXAMINATION: US ABDOMEN HISTORY: EPIGASTRIC PAIN, ABDOMINAL PAIN TECHNIQUE: Real-time grayscale ultrasound imaging of the abdomen was performed and images were reviewed. COMPARISON: There ar e no prior studies for comparison. FINDINGS: Liver: The right lob e of the liver measures 18.5 cm in size. The left lobe of the liver measures 11.1 cm in size. The liver demonstrates mildly increased echotexture, consistent with steatosis. No focal mass or intrahepatic bili lexie ductal dilatation is identified. There is normal hepatopedal f low in the portal vein. Gallbladder and bili lexie tree: The gallbladder is unremarkable, without evidence of calculi, wall thickening, or pericholecystic fluid. There is no sonographic Reynoso sign. The common bile duct is normal in caliber measuring 7 mm. Kidneys: The right kidney measures 10.6 cm in length. The left kidney measures 11.9 cm in length. The kidneys are unremarkable, without evidence of masses, hydronephrosis, or calculi. Pancreas: The pancreatic head, neck, and body are unremarkable. The pancreatic tail is obscured by bowel gas. Spleen: The spleen i s normal in size and contour, measuring 12.2 cm in length. Abdominal aorta and inferior vena cava: The visualized portions of the abdominal aorta and inferior vena cava are normal in caliber. There is no free flu id in the abdomen. US/US abdomen complete IMPRESSION: Hepatomegaly and hepatic steatosis. Otherwise unremarkable abdominal ultrasound. Electronically gissell d by: Isra Torres MD 06/22/2024 08:10 AM EDT RP Dictated By: Isra Torres MD Signed By: <Electronically signed by Isra Torres MD in OV> 06/22/24 0810 DD/ 0715 TD/TT: 06/22/24 0745 Riprap Worker: Reason For Referral Referring Provider First Name Frank Referring Provider Last Name [facility] Referring Provider Speciality Internal M edicine Referred Organization [facility] Referred Provider Isra Muñoz Referred Address [address] [place] [address],[place], [place],[address], Referred Provider Specialty Gastroentero logy Referral Priority Routine Medications Medication SIG (Take, Route, Frequency, Duration) Notes [...] Intrathe matt Three times a day Active Protonix 40 MG 1 Orally Twice a day with one before the morning meal and one before the evening meal for 30 day(s) Activ e Claritin 10 MG 1 tablet Orally Once [...] as needed Orally every 12 hrs Active Immunizations Vaccine Route Administration Date Status Comme nts Influenza Unknown 05/30/2024 Refused Social History Tobacco Use: Social History Observation Description Date Details (start date - stop date) Former Smoker NA - NA Tobacco Use/Smoking Question Answer Notes Patient is a former smoker Alcohol Screen Question Answer Notes Did you have a drink containing alcohol in the p ast year? No Points 0 Interpretation Negative Section Notes: Nonsmoker; no sig alcohol Problems Problem Type SNOMED Code ICD Code Onset Dates Problem Status W/U Status Risk Notes Problem Duodenitis (07971857) Duodenitis (K29.80) Active confirmed Problem Epigastric pain (40738191) Abdominal pain, epigastric (R10.13) Active confirmed Problem Gastric ulcer (928098151) Gastric ulcer (K25.9) Active confirmed Problem Gastroesophageal reflux disease (disorder) (325666644) Chronic GERD (K21.9) Active confirmed Vital Signs Temperature 98.0 degrees Fahrenheit 05/30/2024 Blood pressure diastolic 01 mm Hg 05/30/2024 Height 69 in 05/30/2024 Blood pressure systolic 001 mm Hg 05/30/2024 Weight 187 lbs 05/30/2024 BMI 27.61 kg/m2 05/30/2024 Encounters Encounter Location Date Provider Diagnosis [facility] [address] [place], [place] [phone] 06/01/2024 Isra Muñoz Gastric ulcer K25.9 ; Hiatal hernia K44.9 ; Duodenitis K29.80 and Abdominal pain R10.9 [facility] [address] [place] [address] 05/30/2024 Isra Muñoz Abdominal pain, epigastric R10.13 and Chronic GERD K21.9 [facility] [address] [place] [address] 05/31/2024 Isra Muñoz [facility] [address] [place] [address] 06/01/2024 Isra Muñoz Assessments Encounter Date Diagnosis (ICD Code) Assessment Notes Treatment Notes Treatment Clinical Notes Section Notes 06/01/2024 Hiatal hernia (ICD-10 - K44.9) 06/01/2024 Gastric ulcer (ICD-10 - K25.9) 05/30/2024 Abdominal pain, epigastric (ICD-10 - R10.13) Overall, Tamika appears well from a clinical standpoint and presently has a benign abdomen. We did review that it would be important to exclude anything such as significant esophagitis, gastritis, or peptic ulcer disease. We did review that would be unusual on a daily PPI, but given the fact that she does take daily NSAIDs could predispose her to one of those possibilities nonetheless. We did discuss the possibility of a pill ulcer in the esophagus or hiatal hernia in relation to the doxycycline and/or naproxen as well. As such, I did recommend she undergo an upper endoscopy for further evaluation. Full consent is obtained for this, including risks of bleeding and perforation. The procedure will be done with monitored anesthesia care. She will also have an abdominal ultrasound to rule out any component of symptomatic gallstones, as well as laboratories to check a CBC, liver profile, and lipase. If the workup remains negative and she continues to have significant symptoms, we may then want to obtain some further imaging with a CT scan with IV contrast to rule out anything such as a celiac artery compression in relation to median arcuate ligament syndrome(MALS) or a superior mesenteric artery compression. Both of these entities are rare, but nonetheless can cause upper abdominal pain on a postprandial basis and we may need to rule them out depending upon her clinical course. I shall also put her in for a colonoscopy recall for 2026 given her reported history of polyps removed in 2021. Tamika was comfortable with this plan. Thank you again for allowing me to participate in Tamika's care. I shall continue to keep you advised of her progress. 05/30/2024 Chronic GERD (ICD-10 - K21.9) Overall, Tamika appears well from a clinical standpoint and presently has a benign abdomen. We did review that it would be important to exclude anything such as significant esophagitis, gastritis, or peptic ulcer disease. We did review that would be unusual on a daily PPI, but given the fact that she does take daily NSAIDs could predispose her to one of those possibilities nonetheless. We did discuss the possibility of a pill ulcer in the esophagus or hiatal hernia in relation to the doxycycline and/or naproxen as well. As such, I did recommend she undergo an upper endoscopy for further evaluation. Full consent is obtained for this, including risks of bleeding and perforation. The procedure will be done with monitored anesthesia care. She will also have an abdominal ultrasound to rule out any component of symptomatic gallstones, as well as laboratories to check a CBC, liver profile, and lipase. If the workup remains negative and she continues to have significant symptoms, we may then want to obtain some further imaging with a CT scan with IV contrast to rule out anything such as a celiac artery compression in relation to median arcuate ligament syndrome(MALS) or a superior mesenteric artery compression. Both of these entities are rare, but nonetheless can cause upper abdominal pain on a postprandial basis and we may need to rule them out depending upon her clinical course. I shall also put her in for a colonoscopy recall for 2026 given her reported history of polyps removed in 2021. Tamika was comfortable with this plan. Thank you again for allowing me to participate in Tamika's care. I shall continue to keep you advised of her progress. 06/01/2024 Duodenitis (ICD-10 - K29.80) 06/01/2024 Abdominal pain (ICD-10 - R10.9) Plan Of Treatment Pending Test Test Name Order Date LIVER PROFILE 05/30/2024 CBC w DIFF 05/30/2024 Pathology 06/01/2024 US abdomen complete 06/22/2024 US abdomen complete 05/30/2024 Future Test Test Name Order Date UPPER GI ENDOSCOPY 05/30/2024 Insurance Providers Payer Name Payer Address Payer Phone Subscriber Number Group Number Insured Name Patient Relationship to Insured Coverage Start Date Coverage End Date MEDICAID OF [employer] [address] [place]OB [id number] BO WAKEFIELD Self - patient is the insured Medical (General) History Medical History History ICD Code NIDDM Asthma Denies ID,CVA,renal disease Kidney stones Muscle spasms, tendonitis, arthritis Colonoscopy in 2021 in [place]--polyps removed--recommended a F/U in 5-7 years Surgical History Surgery Date(Month/Year) Hysterectomy D&C
--- OUTSIDE RECORDS SUMMARY | 2024-07-12 06:04 | XMS_ITS ---
Author Organization [facility] Address [address] [place] [address] Care Team Providers Care Ell Tutor Name Role Phone Frank Duffy MD Primary Care Provider Isra Stephenson [phone] REASON FOR VISIT Protonix BID Rx Medications Medication SIG (Take, Route, Fr equency, Duration) Notes Start Date End Date Status Protonix 40 MG 1 Orally Twice a day with one before the morning meal and one before the evening meal for 30 day(s) Activ e Encounters Encounter Location Date Provider Diagnosis [facility] [address] [place] [address] 06/01/2024 Isra Muñoz Plan Of Treatment Medication Medication Name Sig Start Date Stop Date Notes Protonix 40 MG 1 Orally Twice a day with one before the morning meal and one before the evening meal for 30 day(s) Progress Notes * BO WAKEFIELD LDOB:1974 (49 yo F)Acc No.[id number]:06/01/2024 Patient:?BO WAKEFIELD :1975???Age:49 Y???Sex:Female Address:[address] [place] [address] * Refills? Refill Protonix Tablet Delayed Release, 40 MG, Orally, 60, 1, Twice a day with one before the morning meal and one before the evening meal, 30 day(s), Refills=6 * true * Date:? Generated for Jose rosario/Becca/eTransmitting on:?07/12/2024 06:04 AM EDT
--- OUTSIDE RECORDS SUMMARY | 2024-07-12 06:04 | XMS_ITS ---
Author Organization [facility] Address [address] [place] [address] Care Team Providers Care Trailhead Maintenance Worker Name Role Phone Frank Duffy MD Primary Care Provider UnavailIsra Strauss [phone] Problems Problem Type SNOMED Code ICD Code Onset Dates Problem Status W/U Status Risk Notes Problem Gastric ulcer (847921547) Gastric ulcer (K25.9) Active confirmed Problem Duodenitis (26058559) Duodenitis (K29.80) Active confirmed Encounters Encounter Location Date Provider Diagnosis [facility] Outpatient [address] [place] [phone] 06/01/2024 Isra Muñoz Gastric ulcer K25. 9 ; Hiatal hernia K44.9 ; Duodenitis K29.80 and Abdominal pain R10.9 Assessments Encounter Date Diagnosis (ICD Code) Assessment Notes Treatment Notes Treatment Clinical Notes Section Notes 06/01/2024 Gastric ulcer (ICD-10 - K25.9) 06/01/2024 Hiatal hernia (ICD-10 - K44.9) 06/01/2024 Duodenitis (ICD-10 - K29.80) 06/01/2024 Abdominal pain (ICD-10 - R10.9) Plan Of Treatment No Information Progress Notes * BO WAKEFIELD LDOB:1974 (49 yo F)Acc No.[id number]:06/01/2024 EGD/MAC Patient:?BO WAKEFIELD Provider:?Isra Muñoz MD :1975???Age:49 Y???Sex:Female D ate:06/01/2024 Address:[address] [place], [place] [phone] Pcp:Frank Duffy MD Subjective: * Chief Complaints: * ??? * Medical History:? Objective: * Vitals:? Assessment: * Assessment: 1.?Gastric ulcer - K25.9 (Pr imary)???2.?Hiatal hernia - K44.9???3.?Duodenitis - K29.80???4.?Abdominal pain - R10.9??? Plan: * Treatment: * Procedure Codes:?42002 UPPER GI ENDOSCOPY, BIOPSY * * The named appointment provid er may or may not be the originator of this progress note, and it is not deemed complete until electronically signed by the appointment provider. Sign off status: Pending * Provider:?Isra Muñoz MD Date:? 025 Generated for Jose rosario/Becca/eTransmitting on:?07/12/2024 06:04 AM EDT
--- OUTSIDE RECORDS SUMMARY | 2024-07-12 06:04 | XMS_ITS | Continuity of Care Document ---
Author Organization [facility] Address [address] [place] [address] Phone Care Team Providers Care Food Clerk Name Role Phone Roly Myles MD Unavailable [...] [facility] [address] [place] [facility], [place], [place], [id number], [place] tel:[phone] [facility] left ankle 2011 previous ankle fracture (chief complaint) Sprain/strai n, ankle NOSRupture, tendons, foot/ankle NECDerangeme nt, other joint NEC, ankle/ 4 Shar Tyson. [address] [facility] [address], [address], [place], [place], [id number], [place]. tel:[phone] Referring Provider: Pepper COLON , [address], [place], [address]. tel:[phone] [facility], [address] [facility] [address] [place] [address], [place], [place], [id number], [place] tel:[phone] [facility] No Information 4 Shar Tyson. [address], [address], [place], [place], [address], [place]. tel:[phone] [facility], [address] [facility] [address] [facility] [address], [place], [place], [id number], [place] tel:[phone] [facility] No Information 4 Shar Tyson. [address] [facility] [address], [address], [place], [place], [address], [place]. tel:[phone] Office/outpatie nt visit,est, Strt Fwd [facility], [address], [place], [place], [id number], [place] tel:[phone] [facility] Sprain/strai n, ankle NOS 2 No Information Office/outpatie nt visit,new, Straightforward [facility], [address] [facility] [facility] [address], [place], [place], [id number], [place] tel:[phone] [facility] Sprain/strai n, ankle NOSSprain/st rain, ankle NOSSprain/st rain, ankle NOS 2 Sabrowski PAC Tom. [address], [address], [place], [place], [address], [place]. tel:[phone] [facility], [address] [address], [place], [place], [id number], [place] tel:[phone] [facility] No Information 2 Sabrh[address] PAC Tom. [address], [address], [place], [place], [address], [place]. tel:[phone] Family History Family Member Type Diagnosis Age [...] asthma Payers Payer name Insurance type Covered republican ID Authoriza tion(s) [employer] PPO 26 CI [id number] Social History Type Description Quantity Date Captured [...]
--- OUTSIDE RECORDS SUMMARY | 2024-07-12 06:05 | XMS_ITS ---
Author Organization [facility] Address [address] [place] [address] Care Team Providers Care Radiotelegraph Operator Servicer Name Role Phone Frank Duffy MD Primary Care Provider UnavailIsra Strauss [phone] REASON FOR VISIT please lock 05-30-24 note Encounters Encounter Location Date Provider Diagnosis [facility] [address] [facility] [address] [place] [address] 05/31/2024 Isra Muñoz Plan Of Treatment No Information Progress Notes * BO WAKEFIELD LDOB:1974 (49 yo F)Acc No.[id number]:05/31/2024 Patient:?BO WAKEFIELD :1975???Age:49 Y???Sex:Female Address:[address] [place] [address] [place] [address] * true * Date:? Generated for Alcirai abraham/Becca/eTransmitting on:?07/12/2024 06:04 AM EDT
[2024-07-12 06:28] LABS: MANUAL DIFF FLAG NO
[2024-07-12 07:20] LABS: Basophils Percent Auto 0.5 % (0-2); Eosinophils Absolute Auto 0.3 X10*3/uL (0.0-0.4); Eosinophils Percent Auto 3.6 % (0-4); Hematocrit 33.8 % (37.0-47.0); Hemoglobin 10.9 g/dl (12.0-16.0); Imm Gran Abs Auto 0.03 X10*3/uL (0.00-0.03); Imm Gran Pct Auto 0.4 % (0.0-0.4); Lymphocytes Absolute Auto 2.5 X10*3/uL (1.2-4.9); Lymphocytes Percent Auto 31.9 % (20-40); Mean Corpuscular HGB Conc 32.2 g/dl (31.0-35.0); Mean Corpuscular Volume 80.5 fL (80.0-98.0); Mean Platelet Volume 9.8 fL (9.4-12.3); Monocytes Absolute Auto 0.6 X10*3/uL (0.1-1.2); Monocytes Percent Auto 7.8 % (2-11); Neutrophils Absolute Auto 4.3 x10*3/uL (2.0-8.3); Neutrophils Percent Auto 55.8 % (45-73); Platelet Count 270 X10*3/uL (160-400); Red Cell Distribution Width 15.2 % (11.0-16.0); White Blood Count 7.8 X10*3/uL (4.8-10.8)
[2024-07-12 07:25] LABS: Estimated Average Glucose 117 mg/dL; Hemoglobin A1C 113.7593 umol/L; Hemoglobin A1c % 5.7 % (<6.0); Total Hemoglobin (HGBA1C) 2955.5086 umol/L
[2024-07-12 07:59] LABS: Alanine Aminotransferase 10 U/L (0-31); Albumin Level 3.8 g/dL (3.5-5.0); Alkaline Phosphatase 51 U/L (39-117); Anion Gap 9 (12-20); Aspartate Amino Transferase 13 U/L (5-31); Bilirubin Total 0.5 mg/dL (0.0-1.0); Blood Urea Nitrogen 17 mg/dL (9-16); Calcium 8.8 mg/dL (8.4-10.2); Carbon Dioxide 27 mmol/L (22-29); Chloride 109 mmol/L (96-108); Cholesterol 189 mg/dL (<200); Estimated Glomerular Filt Rate > 60; Glucose Fasting 103 mg/dL (60-99); HDL Cholesterol 54 mg/dL (>40); LDL Cholesterol Calculated 84 mg/dL (<100); Potassium 3.9 mmol/L (3.3-5.1); Sodium 141 mmol/L (135-145); Total Protein 6.1 g/dL (6.5-8.0); Triglycerides 255 mg/dL (<150)
== END 2024-07-12 06:03 | disposition home or self-care (01) ==
LOC: HO.LAB 06:02
PROVIDERS: PCP Internal Medicine; Visit Provider Internal Medicine
DX: R53.83 Other fatigue (principal); E11.9 Type 2 diabetes mellitus without complications; E78.00 Pure hypercholesterolemia, unspecified
CPT/HCPCS: 36415; 80053; 80061; 83036; 85025

== ENCOUNTER 2024-07-17 15:28 | Outpatient (REF) | payer MEDICAID, SELFPAY ==
--- NOTE | ~2024-07-17 | XR_ITS ---
CLINICAL HISTORY: PAIN,R O DJD 2 view left shoulder Comparison: None Findings: No fractures or dislocations. Moderate degenerative change of the acromioclavicular joint. No erosions. No radiopaque foreign body. IMPRESSION: Moderate AC joint degenerative change. No acute process. This document has been electronically signed by: Ben Michaels MD on 07/18/2024 11:50:01
--- NOTE | ~2024-07-17 | XR_ITS ---
CLINICAL HISTORY: PAIN,R O DJD 4 views of each knee including standing AP views and tunnel views Comparison: None Findings: Right knee: Bones intact. No dislocations. No significant arthritic change or erosions. No joint effusion. No radiopaque foreign body. Left knee: Bones intact. No dislocations. No significant arthritic change or erosions. No joint effusion. No radiopaque foreign body. IMPRESSION: 1. No acute findings. 2. No significant degenerative change bilaterally. This document has been electronically signed by: Ben Michaels MD on 07/18/2024 11:44:36
--- NOTE | ~2024-07-17 | XR_ITS ---
CLINICAL HISTORY: PAIN, R O DJD Three views of each ankle Comparison: None Findings: Right ankle: No acute fractures or dislocations. No significant loss of joint space, osteophytes, or erosions. No ankle effusion. No radiopaque foreign body. Left ankle: No acute fractures or dislocations. Mild degenerative changes throughout the ankle. No ankle effusion. No radiopaque foreign body. IMPRESSION: 1. No acute findings. 2. Mild left-sided degenerative changes. This document has been electronically signed by: Ben Michaels MD on 07/18/2024 11:32:27
--- NOTE | ~2024-07-17 | XR_ITS ---
CLINICAL HISTORY: RR DJD, PAIN 4 views cervical spine Comparison: None Findings: No fracture or acute malalignment. Prominent bridging osteophyte noted at C5-C6. Facet joints are normally imbricating. No prevertebral soft tissue edema. IMPRESSION: No acute findings. 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 This document has been electronically signed by: Ben Michaels MD on 07/18/2024 11:49:52
--- NOTE | ~2024-07-17 | XR_ITS ---
CLINICAL HISTORY: R O DJD, PAIN 4 view, pelvis and bilateral hips Comparison: None Findings: No acute fracture or dislocation. Mild degenerative changes at both hips, with mild femoral-acetabular joint space narrowing and regions of subchondral sclerosis. The soft tissues are unremarkable. IMPRESSION: No acute findings. Mild degenerative changes at both hips. This document has been electronically signed by: Ben Michaels MD on 07/18/2024 11:43:35
--- OUTSIDE RECORDS SUMMARY | 2024-07-17 18:22 | XMS_ITS | Patient Health Record ---
Author Organization [facility] Address [address] [place] [address] Care Team Providers Care Can Feeder Name Role Phone Frank Duffy MD Primary Care Provider UnavailIsra Strauss [phone] Results Component Value Reference Range Notes Lipase Reviewed date:06/01/2024 05:32:27 PM Interpretation: Performing Lab:[facility], [address] [place] [address] Notes/Report: Lipase 17 8-78 U/L Complete Blood Count Auto Di ff Reviewed date:06/01/2024 05:28:58 PM Interpretation: Performing Lab:[facility], [address] [place] [address] Notes/Report: White Blood Count 7.6 4.8-10.8 X10*3/uL [...] Panel Reviewed date:06/01/2024 05:31:48 PM Interpretation: Performing Lab:[facility], [address] [place] [address] Notes/Report: Bilirubin Total 0.7 0.0-1.0 mg/dL Bilirubin Direct 0.1 0.0-0.5 mg/dL Aspartate Amino Transferase 17 5-31 U/L Alanine Aminotransferase 12 0-31 U/L Total Protein 6.2 6.5-8.0 g/dL Albumin Level 3.7 3.5-5.0 g/dL Alkaline Phosphatase 49 39-117 U/L Glucose, Whole Blood Reviewed date:06/01/2024 05:27:23 PM Interpretation: Performing Lab:[facility], [address] [place] [address] Notes/Report: Glucose, Whole Blood 85 60-115 mg/dL METER # : [id number] Pathology Reviewed date:07/16/2024 12:43:37 AM Interpretation: Performing Lab:[facility], [address] [place] [address] Notes/Report: --- Name: Nahun Wakefield Age/Sex: 49/F : 1975 [facility]#: [id number] Unit#: [id number] Attend Dr: Isra Muñoz MD Re06/01/24 Status : [facility] Location: [facility] Disch: --- SPEC : [id number] RECD: 06/04/24 STATUS: [facility] NUM: [id number] ROBBIN: 06/01/24-[address] [facility] [address]: Isra Muñoz MD ENTERED: 06/04/24-12 [...] Name: Nahun Wakefield Age/Sex: 49/F [facility] 1975 [id number] [id number] Attend Dr: Isra Muñoz MD Re06/01/24 Status : [facility] Location: [facility] Disch: --- SPEC : [id number] RECD: 06/04/24 STATUS: [facility] NUM: [id number] ROBBIN: 06/01/24-[address] [facility] [address]: Isra Muñoz MD ENTERED: 06/04/24-12 07 SP TYPE: Surgical OTHR DR: Frank Duffy MD ORDERED: HE Stain/9, Gross Micro L4/3, IHC/3, Special st. 2/3, H. pylori/3, AB/PAS/3 Gross Description (Continued) stains on A, B and C Copies To: Frank Duffy MD [facility] [address] [place] [address] Isra Muñoz MD [facility] [address] [place] [address] --- Signed (signature on file) Vipul Lynne MD 06/06/24 1527 --- END OF REPORT US abdomen complete Reviewed date:07/16/2024 12:44:47 AM Interpretation: Performing Lab: Notes/Report: [address] [address] Ultrasound Report Signed Patient: Bo Wakefield MR#: [id number] 520 : 1975 Acct:[id number] Age/Sex: 49 / F ADM Date: 06/22/24 Loc: .US Attending Dr: Isra Muñoz MD Ordering Physician: Isra Muñoz MD Date of Service: 06/22/24 Procedure(s): US abdomen complete Accession Number(s): [id number] cc: Frank Duffy MD; Isra Muñoz MD [...] 06/22/24 0810 DD/ 0715 TD/TT: 06/22/24 0745 Rn Cvicu: [place] [address] Ultrasound Report Signed Patient: Bo Wakefield MR#: [id number] 520 : 1975 Acct:[id number] Age/Sex: 49 / F ADM Date: 06/22/24 Loc: HO.US Attending Dr: Isra Muñoz MD Ordering Physician: Isra Muñoz MD Date of Service: 06/22/24 Procedure(s): US abdomen complete Accession Number(s): [id number] cc: Frank Duffy MD; Isra Muñoz MD [...] 06/22/24 0810 DD/ 0715 TD/TT: 06/22/24 0745 Rn Cvicu: Reason For Referral Referring Provider First Name Frank Referring Provider Last Name Tati Referring Provider Speciality Internal M edicine Referred Organization [facility] Referred Provider Isra Muñoz Referred Address [address] [place] [address],[place] [address],[place], [place],[address],[place] Referred Provider Specialty Gastroentero logy Referral Priority [...] Status W/U Status Risk Notes Problem Duodenitis (78765405) Duodenitis (K29.80) Active confirmed Problem Epigastric pain (56302434) Abdominal pain, epigastric (R10.13) Active confirmed Problem Gastric ulcer (425247065) Gastric ulcer (K25.9) Active confirmed Problem Gastroesophageal reflux disease (disorder) (009773070) Chronic GERD (K21.9) Active confirmed Vital Signs Temperature 98.0 degrees Fahrenheit 05/30/2024 Blood pressure diastolic 01 mm Hg 05/30/2024 Height 69 in 05/30/2024 Blood pressure systolic 001 mm Hg 05/30/2024 Weight 187 lbs 05/30/2024 BMI 27.61 kg/m2 05/30/2024 Encounters Encounter Location Date Provider Diagnosis [facility] Outpatient [address] [place], [place] [id number] 06/01/2024 Isra Muñoz Gastric ulcer K25.9 ; Hiatal hernia K44.9 ; Duodenitis K29.80 and Abdominal pain R10.9 [facility] [address] [place] [address] 05/30/2024 Isra Muoñz Abdominal pain, epigastric R10.13 and Chronic GERD K21.9 [facility] [address] [place] [address] 07/16/2024 Isra Muñoz Postprandial epigastric pain R10.13 and Gastric ulcer K25.9 [facility] [address] [place] [address] 05/31/2024 Isra Muñoz [facility] [address] [place] [address] 06/01/2024 Isra Muñoz Assessments Encounter Date Diagnosis [...] to keep you advised of her progress. 07/16/2024 Gastric ulcer (ICD-10 - K25.9) 07/16/2024 Postprandial epigastric pain (ICD-10 - R10.13) 06/01/2024 Duodenitis (ICD-10 - K29.80) 06/01/2024 Abdominal pain (ICD-10 - R10.9) Plan Of Treatment Pending Test Test Name Order Date BUN 07/16/2024 LIVER PROFILE 05/30/2024 CBC w DIFF 05/30/2024 CT ABD WITH CONTRAST 07/16/2024 Creatinine 07/16/2024 US abdomen complete 05/30/2024 Future Test Test Name Order Date UPPER GI ENDOSCOPY 05/30/2024 Next Appt Details Provider Name:Isra Muñoz , 09/13/2024 11:20:00 AM, [address], [address], [place], [address], Insurance Providers Payer Name Payer Address Payer Phone Subscriber Number Group Number Insured Name Patient Relationship to Insured Coverage Start Date Coverage End Date MEDICA[employer] [address] [place] [phone] [id number] BO WAKEFIELD Self - patient is the insured Medical (General) History Medical History History ICD Code NIDDM Asthma Denies CO,CVA,renal disease Kidney stones Muscle spasms, tendonitis, arthritis Colonoscopy in 2021 in [place]--polyps removed--recommended a F/U in 5-7 years Surgical History Surgery Date(Month/Year) Hysterectomy D&C
--- OUTSIDE RECORDS SUMMARY | 2024-07-17 18:22 | XMS_ITS ---
Author Organization [facility] Address [address] [place] [address] [place] [address] Care Team Providers Care Brake Adjuster Name Role Phone Frank Duffy MD Primary Care Provider Isra Stephenson [phone] REASON FOR VISIT Protonix BID Rx Medications Medication SIG (Take, Route, Fr equency, Duration) Notes Start Date End Date Status Protonix 40 MG 1 Orally Twice a day with one before the morning meal and one before the evening meal for 30 day(s) Activ e Encounters Encounter Location Date Provider Diagnosis [facility] [address] [place] [address] 06/01/2024 Isra Muñoz Plan Of Treatment Medication Medication Name Sig Start Date Stop Date Notes Protonix 40 MG 1 Orally Twice a day with one before the morning meal and one before the evening meal for 30 day(s) Next Appt Details Provider Name:Isra Muñoz , 09/13/2024 11:20:00 AM, [address] [place] [address], [address], [place], [address], Progress Notes * BO WAKEFIELD LDOB:1974 (49 yo F)Acc No.[id number]:06/01/2024 Patient:?BO WAKEFIELD :1975???Age:49 Y???Sex:Female Address:[address] [place] [address] * Refills? Refill Protonix Tablet Delayed Release, 40 MG, Orally, 60, 1, Twice a day with one before the morning meal and one before the evening meal, 30 day(s), Refills=6 * true * Date:? Generated for Jose rosario/Becca/Gopal on:?07/17/2024 06:22 PM EDT
--- OUTSIDE RECORDS SUMMARY | 2024-07-17 18:22 | XMS_ITS | Continuity of Care Document ---
Author Organization [facility] Address [address] [place] [address] Phone Care Team Providers Care Equipment Maintenance Supervisor Name Role Phone Roly Myles MD Unavailable [facility] [address] [facility] [place], [place], [address], [place] tel:[phone] [facility] [place] left ankle 2011 previous ankle fracture (chief complaint) Sprain/strai n, ankle NOSRupture, tendons, foot/ankle NECDerangeme nt, other joint NEC, ankle/ 4 Shar Tyson. [address] [facility] [address], [place], [place], [id number], [place]. tel:[phone] Referring Provider: Pepper COLON , [address], [place], [address]. tel:[phone] [facility], [address] [facility] [address] [place] [address], [place], [place], [address], [place] tel:[phone] [facility] No Information 4 Shar Tyson. [address], [address], [place], [place], [address], [place]. tel:[phone] [facility], [address] [facility] [address] [facility], [place], [place], [address], [place] tel:[phone] [facility] No Information 4 Shar Tyson. [address] [facility] [address], [address], [place], [place], [address], [place]. tel:[phone] Office/outpatie nt visit,est, Strt Fwd [facility], [address], [place], [place], [address], [place] tel:[phone] [facility] Sprain/strai n, ankle NOS 2 No Information Office/outpatie nt visit,new, Straightforward [facility], [address], [place], [place], [address], [place] tel:[phone] [facility] Sprain/strai n, ankle NOSSprain/st rain, ankle NOSSprain/st rain, ankle NOS 2 [facility]row[facility] PAC Tom. [address], [address], [place], [place], [address], [place]. tel:[phone] [facility], [address] [facility] [address], [place], [place], [address], [place] tel:[phone] [facility] No Information 2 [facility] PAC Tom. [address], [address], [place], [place], [address], [place]. tel:[phone] Family History Family Member Type Diagnosis Age [...] asthma Payers Payer name Insurance type Covered alliance party ID Authoriza tion(s) [employer] PPO 26 CI [id number] Social History Type Description Quantity Date Captured [...]
--- OUTSIDE RECORDS SUMMARY | 2024-07-17 18:22 | XMS_ITS ---
Author Organization [facility] Address [address] [facility] [address] [place] [address] Care Team Providers Care Bartenders Name Role Phone Frank Duffy MD Primary Care Provider UnavailIsra Strauss [phone] Problems Problem Type SNOMED Code ICD Code Onset Dates Problem Status W/U Status Risk Notes Problem Gastric ulcer (574968101) Gastric ulcer (K25.9) Active confirmed Problem Duodenitis (88320550) Duodenitis (K29.80) Active confirmed Encounters Encounter Location Date Provider Diagnosis [facility] Outpatient [address] [place] [phone] 06/01/2024 Isra Muñoz Gastric ulcer K25. 9 [...] Name:Isra Muñoz , 09/13/2024 11:20:00 AM, [address], [address], [place], [address], Progress Notes * BO WAKEFIELD LDOB:1974 (49 yo F)Acc No.[id number]:06/01/2024 EGD/MAC Patient:?BO WAKEFIELD Provider:?Isra Muñoz MD :1975???Age:49 Y???Sex:Female D ate:06/01/2024 Address:[address] [place] [address] [facility] [id number] Pcp:Frank Duffy MD Subjective: * Chief Complaints: * ??? * Medical History:? Objective: * Vitals:? Assessment: * Assessment: 1.?Gastric ulcer - K25.9 (Pr imary)???2.?Hiatal hernia - K44.9???3.?Duodenitis - K29.80???4.?Abdominal pain - R10.9??? Plan: * Treatment: * Procedure Codes:?05760 UPPER GI ENDOSCOPY, BIOPSY * * The named appointment provid er may or may not be the originator of this progress note, and it is not deemed complete until electronically signed by the appointment provider. Sign off status: Pending * Provider:?Isra Muñoz MD Date:? 025 Generated for Jose rosario/Becca/eTransmitting on:?07/17/2024 06:22 PM EDT
--- OUTSIDE RECORDS SUMMARY | 2024-07-17 18:23 | XMS_ITS ---
Author Organization [facility] Address [address] [place] [address] [place] [address] Care Team Providers Care Forestry Instructor Name Role Phone Frank Duffy MD Primary Care Provider UnavailIsra Strauss [phone] REASON FOR VISIT ?Maybe repeat EGD? Encounters Encounter Location Date Provider Diagnosis [facility] [address] [place] [address] 07/16/2024 Isra Muñoz Postprandial epigastric pain R10.13 and Gastric ulcer K25.9 Assessments Encounter Date Diagnosis (ICD Code) Assessment Notes Treatment Notes Treatment Clinical Notes Section Notes 07/16/2024 Postprandial epigastric pain (ICD-10 - R10.13) 07/16/2024 Gastric ulcer (ICD-10 - K25.9) Plan Of Treatment Pending Test Test Name Order Date BUN 07/16/2024 CT ABD WITH CONTRAST 07/16/2024 Creatinine 07/16/2024 Next Appt Details Provider Name:Isra Muñoz , 09/13/2024 11:20:00 AM, [address] [place] [address], [address], [place], [address], Progress Notes * BO WAKEFIELD LDOB:1974 (49 yo F)Acc No.[id number]:07/16/2024 Patient:?BO WAKEFIELD :1975???Age:49 Y???Sex:Female Address:[address] [place] [address] [place] [address] Subjective: * Chief Complaints: * ?Maybe repeat EGD? * Medical History:? * Surgical History:? * Hospitalization/Major Diagno stic Procedure:? * Medications:? Objective: * Vitals:? * Physical Examination:? Assessment: * Assessment: 1.?Postprandial epigastric p ain - R10.13 (Primary)???2.?Gastric ulcer - K25.9??? Plan: * Treatment: * 2.?Gastric ulcer?LAB: BUN ?LAB: Creatinine ?Imaging: CT ABD WITH CONTRAST* with oral and IV contrast * * Procedure Codes:? * * Date:?
== END 2024-07-17 15:29 | disposition home or self-care (01) ==
LOC: HO.HMGCX 15:28
PROVIDERS: PCP Internal Medicine; Visit Provider Internal Medicine
DX: M25.512 Pain in left shoulder (principal); M25.561 Pain in right knee; M25.562 Pain in left knee; M25.571 Pain in right ankle and joints of right foot; M25.572 Pain in left ankle and joints of left foot; M25.559 Pain in unspecified hip; M54.2 Cervicalgia
CPT/HCPCS: 72050; 73030; 73522; 73562; 73610

== ENCOUNTER → 2024-07-17 15:34 | Outpatient (BNV) | payer MEDICAID, SELFPAY | PROVIDERS: PCP Internal Medicine; Visit Provider Radiology Vascular & Interventional Radiology | DX: M16.0 Bilateral primary osteoarthritis of hip (principal); M54.2 Cervicalgia; M25.561 Pain in right knee; M25.562 Pain in left knee; M19.012 Primary osteoarthritis, left shoulder; M25.571 Pain in right ankle and joints of right foot; M25.572 Pain in left ankle and joints of left foot; M19.072 Primary osteoarthritis, left ankle and foot | CPT/HCPCS: 72050; 73030; 73522; 73562; 73610 ==

== ENCOUNTER 2024-08-09 06:01 | Outpatient (REF) | payer MEDICAID, SELFPAY ==
--- OUTSIDE RECORDS SUMMARY | 2024-08-09 06:04 | XMS_ITS | Continuity of Care Document ---
Author Organization [facility] Address [address] [place] [address] Phone Care Team Providers Care Wet Mixer Name Role Phone Roly Myles MD Unavailable [...] [facility], [address] [facility] [place], [place], [id number], [place] tel:[phone] [facility] [place] left ankle 2011 previous ankle fracture (chief complaint) Sprain/strai n, ankle NOSRupture, tendons, foot/ankle NECDerangeme nt, other joint NEC, ankle/ 4 Shar Tyson. [address] [facility] [address], [address], [place], [place], [id number], [place]. tel:[phone] Referring Provider: Pepper COLON , [address], [place], [address]. tel:[phone] [facility], [address] [facility] [address] [place] [address], [place], [place], [id number], [place] tel:[phone] [facility] [place] No Information 4 Shar Tyson. [address], [address], [place], [place], [address], [place]. tel:[phone] [facility], [address] [facility] [address] [facility], [place], [place], [address], [place] tel:[phone] [facility] No Information 4 Shar Tyson. [address] [facility] [address], [address], [place], [place], [address], [place]. tel:[phone] Office/outpatie nt visit,est, Strt Fwd [facility], [address], [place], [place], [address], [place] tel:[phone] [facility] Sprain/strai n, ankle NOS 2 No Information Office/outpatie nt visit,new, Straightforward [facility], [address] [facility] [address], [place], [place], [id number], [place] tel:[phone] [facility] Sprain/strai n, ankle NOSSprain/st rain, ankle NOSSprain/st rain, ankle NOS 2 [facility]row[facility] PAC Tom. [address], [address], [place], [place], [address], [place]. tel:[phone] [facility], [address] [facility] [address], [place], [place], [id number], [place] tel:[phone] [facility] No Information 2 [facility] PAC Tom. [address], [address], [place], [place], [address], [place]. tel:[phone] Family History Family Member Type Diagnosis Age [...] asthma Payers Payer name Insurance type Covered constitution party ID Authoriza tion(s) [employer] PPO 26 CI [id number] Social History Type Description Quantity Date Captured [...]
[2024-08-09 07:35] LABS: Blood Urea Nitrogen 17 mg/dL (9-16); Estimated Glomerular Filt Rate > 60
== END 2024-08-09 06:02 | disposition home or self-care (01) ==
LOC: HO.LAB 06:01
PROVIDERS: PCP Internal Medicine; Visit Provider Internal Medicine
DX: R10.13 Epigastric pain (principal); K25.9 Gastric ulcer, unspecified as acute or chronic, without hemorrhage or perforation
CPT/HCPCS: 36415; 82565; 84520

== ENCOUNTER 2024-08-15 12:22 | Outpatient (REF) | payer MEDICAID, SELFPAY ==
--- NOTE | ~2024-08-15 | CT_ITS ---
EXAMINATION: CT ABDOMEN AND PELVIS WITH CONTRAST CLINICAL INFORMATION: Gastric ulcer. COMPARISON: None available. TECHNIQUE: Multidetector volumetric images were obtained from the superior aspect of the liver through the pubic symphysis following administration 85 mL of Omnipaque 350 intravenous contrast. Sagittal and coronal reformatted images were obtained on the technologist's workstation. Oral contrast: [address] examination was performed using dose optimization techniques as appropriate, variously including the following: *Automated exposure control *Adjustment of mA and/or kV according to patient size (this includes techniques or standardized protocols for targeted exams where dose is matched to indication/reason for exam; i.e. extremities or head) *Use of iterative reconstruction technique DLP: 514 mGy centimeter. FINDINGS: LUNG BASES: No acute airspace disease. LIVER, GALLBLADDER, AND BILIARY TREE: Liver measures 18 cm no focal mass. Portal veins, hepatic veins and intrahepatic portion of the IVC are patent. No intrahepatic biliary ductal dilatation. No pericholecystic fluid collection or gallbladder wall thickening. Common bile duct measures 3 mm. PANCREAS: No focal mass. No peripancreatic fluid collection. No main pancreatic ductal dilatation. SPLEEN: 12 cm. No focal mass. ADRENAL GLANDS: No nodular lesions. KIDNEYS AND URETERS: There is a dilatation of the left ureter from the vesicoureteral junction to the pelvicalyceal system. There is a 2 mm ossification either the vesicoureteral junction versus extraluminal. No dilatation of the right urinary collecting system. No gross renal mass. Normal enhancement pattern of the renal parenchyma. Cortical irregularity in the kidneys. BLADDER: Fluid-filled. GASTROINTESTINAL TRACT: No gross wall thickening. No intestinal obstruction pattern. Abundant stool, large intestine. Appendix is normal. No pneumatosis intestinalis. No pneumoperitoneum. No ascites. ABDOMINAL WALL: No gross hernia. LYMPH NODES: Nonspecific mildly prominent mesenteric lymph nodes. VASCULAR: No aneurysm or dissection, abdominal aorta. PELVIC VISCERA: Absent uterus. OSSEOUS STRUCTURES: Multilevel thoracic and lumbar spondylosis. No acute fracture or gross listhesis. Degenerative changes in the symphysis pubis. No lytic or thickness. Spina bifida occulta S1.. CT/CT abdomen pelvis w IV con IMPRESSION: No intestinal obstruction pattern. Left hydroureteronephrosis with questionable 2 mm obstructing calculus versus intrinsic lesion. Recommend direct inspection. Hepatosplenomegaly. Fleischner guidelines were followed. Electronically signed by: Jose Vieira MD 08/15/2024 03:31 PM EDT RP
--- OUTSIDE RECORDS SUMMARY | 2024-08-15 13:35 | XMS_ITS | Continuity of Care Document ---
Author Organization [facility] Address [address] [place] [address] Phone Care Team Providers Care Presser First Name Role Phone Roly Myles MD Unavailable [...] [facility], [address] [facility], [place], [place], [id number], [place] tel:[phone] [facility] [place] left ankle 2011 previous ankle fracture (chief complaint) Sprain/strai n, ankle NOSRupture, tendons, foot/ankle NECDerangeme nt, other joint NEC, ankle/ 4 Shar Tyson. [address] [facility] [address], [address], [place], [place], [address], [place]. tel:[phone] Referring Provider: Pepper COLON , [address], [place], [address]. tel:[phone] [facility], [address] [facility] [address] [place] [address], [place], [place], [id number], [place] tel:[phone] [facility] [place] No Information 4 Shar Tyson. [address], [place], [place], [address], [place]. tel:[phone] [facility], [address] [facility] [address] [facility] [address], [place], [place], [id number], [place] tel:[phone] [facility] No Information 4 Shar Tyson. [address] [facility] [address], [address], [place], [place], [address], [place]. tel:[phone] Office/outpatie nt visit,est, Strt Fwd [facility], [address], [place], [place], [id number], [place] tel:[phone] [facility] Sprain/strai n, ankle NOS 2 No Information Office/outpatie nt visit,new, Straightforward [facility], [address], [place], [place], [address], [place] tel:[phone] [facility] Sprain/strai n, ankle NOSSprain/st rain, ankle NOSSprain/st rain, ankle NOS 2 [facility]row[facility] PAC Tom. [address], [address], [place], [place], [id number], [place]. tel:[phone] [facility], [address] [facility] [address], [place], [place], [address], [place] tel:[phone] [facility] No Information 2 [facility] PAC Tom. [address], [address], [place], [place], [id number], [place]. tel:[phone] Family History Family Member Type Diagnosis Age [...] ID Authoriza tion(s) [employer] PPO 26 CI [id number] Social History Type Description Quantity Date Captured [...]
--- OUTSIDE RECORDS SUMMARY | 2024-08-15 13:35 | XMS_ITS ---
Author Organization [facility] Address [address] [place] [address] [address] [place] [address] Care Team Providers Care Wrapper Rewinder Name Role Phone Frank Duffy MD Primary Care Provider Isra Stephenson [phone] REASON FOR VISIT I changed the order to a CT of Abdomen and Pelvis Encounters Encounter Location Date Provider Diagnosis [facility] [address] [place] [address] 07/16/2024 Isra Muñoz Postprandial epigastric pain R10.13 and Gastric ulcer K25.9 Assessments Encounter Date Diagnosis (ICD Code) Assessment Notes Treatment Notes Treatment Clinical Notes Section Notes 07/16/2024 Postprandial epigastric pain (ICD-10 - R10.13) 07/16/2024 Gastric ulcer (ICD-10 - K25.9) Plan Of Treatment Pending Test Test Name Order Date BUN 07/16/2024 CT ABD & PELVIS WITH CONTRAST 07/16/2024 Creatinine 07/16/2024 Next Appt Details Provider Name:Isra Muñoz , 09/13/2024 11:20:00 AM, [address] [place] [address], [address], [place], [address], Progress Notes * BO WAKEFIELD LDOB:1974 (49 yo F)Acc No.[id number]:07/16/2024 Patient:?BO WAKEFIELD :1975???Age:49 Y???Sex:Female Address:[address] [place], [place] [address] [address] Subjective: * Chief Complaints: * ???I changed the order to a CT of Abdomen and Pelvis * Medical History:? * Surgical History:? * Hospitalization/Major Diagno stic Procedure:? * Medications:? Objective: * Vitals:? * Physical Examination:? Assessment: * Assessment: 1.?Postprandial epigastric p ain - R10.13 (Primary)???2.?Gastric ulcer - K25.9??? Plan: * Treatment: * 2.?Gastric ulcer?LAB: BUN ?LAB: Creatinine ?Imaging: CT ABD & PELVIS WITH CONTRAST* with oral and IV contrastWShiloh wilcox 07/23/2024 01:41:22 PM EDT > Referral Auth-# [id number] 1 visit, start 07/23/24 good for 1 year. I faxed this order to the [facility] centralized scheduling to miley call and they call the pt to schedule. Thanks * * Procedure Codes:? * true * Date:? Generated for Jose rosario/Becca/eTransmitting on:?08/15/2024 01:35 PM EDT
--- OUTSIDE RECORDS SUMMARY | 2024-08-15 13:35 | XMS_ITS ---
Author Organization [facility] Address [address] [facility] [address] [place] [address] Care Team Providers Care Geospatial Information Scientist Name Role Phone Frank Duffy MD Primary Care Provider UnavailIsra Strauss [phone] Problems Problem Type SNOMED Code ICD Code Onset Dates Problem Status W/U Status Risk Notes Problem Gastric ulcer (498367335) Gastric ulcer (K25.9) Active confirmed Problem Duodenitis (K29.80) Active confirmed Encounters Encounter Location Date Provider Diagnosis [facility] Outpatient [address] [place] [phone] 06/01/2024 Isra Muñoz Gastric ulcer K25. 9 [...] Name:Isra Muñoz , 09/13/2024 11:20:00 AM, [address] [facility], [address], [place], [address], Progress Notes * BO WAKEFIELD LDOB:1974 (49 yo F)Acc No.[id number]:06/01/2024 EGD/MAC Patient:?BO WAKEFIELD Provider:?Isra Muoñz MD :1975???Age:49 Y???Sex:Female D ate:06/01/2024 Address:[address] [place], [place] [phone] Pcp:Frank Duffy MD Subjective: * Chief Complaints: * ??? * Medical History:? Objective: * Vitals:? Assessment: * Assessment: 1.?Gastric ulcer - K25.9 (Pr imary)???2.?Hiatal hernia - K44.9???3.?Duodenitis - K29.80???4.?Abdominal pain - R10.9??? Plan: * Treatment: * Procedure Codes:?47221 UPPER GI ENDOSCOPY, BIOPSY * * The named appointment provid er may or may not be the originator of this progress note, and it is not deemed complete until electronically signed by the appointment provider. Sign off status: Pending * Provider:?Isra Muñoz MD Date:? 025 Generated for Jose rosario/Becca/eTransmitting on:?08/15/2024 01:34 PM EDT
--- OUTSIDE RECORDS SUMMARY | 2024-08-15 13:35 | XMS_ITS ---
Author Organization [facility] Address [address] [place] [address] [place] [address] Care Team Providers Care Hydrographical Technical Officer Name Role Phone Frank Duffy MD Primary Care Provider Isra Stephenson [phone] REASON FOR VISIT Protonix BID Rx Medications Medication SIG (Take, Route, Fr equency, Duration) Notes Start Date End Date Status Protonix 40 MG 1 Orally Twice a day with one before the morning meal and one before the evening meal for 30 day(s) Activ e Encounters Encounter Location Date Provider Diagnosis [facility] [address] [place] [address] 06/01/2024 Isra Muñoz Plan Of Treatment Medication Medication Name Sig Start Date Stop Date Notes Protonix 40 MG 1 Orally Twice a day with one before the morning meal and one before the evening meal for 30 day(s) Next Appt Details Provider Name:Isra Muñoz , 09/13/2024 11:20:00 AM, [address] [place] [address], [address], [place], [address], Progress Notes * BO WAKEFIELD LDOB:1974 (49 yo F)Acc No.[id number]:06/01/2024 Patient:?BO WAKEFIELD :1975???Age:49 Y???Sex:Female Address:[address] [place] [address] * Refills? Refill Protonix Tablet Delayed Release, 40 MG, Orally, 60, 1, Twice a day with one before the morning meal and one before the evening meal, 30 day(s), Refills=6 * true * Date:? Generated for Jose rosario/Becca/Gopal on:?08/15/2024 01:34 PM EDT
--- OUTSIDE RECORDS SUMMARY | 2024-08-15 13:35 | XMS_ITS | Patient Health Record ---
Author Organization [facility] Address [address] [place] [address] Care Team Providers Care Clinical Aide Name Role Phone Frank Duffy MD Primary Care Provider UnavailIsra Strauss [phone] Results Component Value Reference Range Notes Lipase Reviewed date:06/01/2024 05:32:27 PM Interpretation: Performing Lab:[facility], [address] [place] [address] Notes/Report: Lipase 17 8-78 U/L Complete Blood Count Auto Di ff Reviewed date:06/01/2024 05:28:58 PM Interpretation: Performing Lab:[facility], [address] [place] [phone] Notes/Report: White Blood Count 7.6 4.8-10.8 X10*3/uL [...] Panel Reviewed date:06/01/2024 05:31:48 PM Interpretation: Performing Lab:[facility], [address] [place] [phone] Notes/Report: Bilirubin Total 0.7 0.0-1.0 mg/dL Bilirubin Direct 0.1 0.0-0.5 mg/dL Aspartate Amino Transferase 17 5-31 U/L Alanine Aminotransferase 12 0-31 U/L Total Protein 6.2 6.5-8.0 g/dL Albumin Level 3.7 3.5-5.0 g/dL Alkaline Phosphatase 49 39-117 U/L Glucose, Whole Blood Reviewed date:06/01/2024 05:27:23 PM Interpretation: Performing Lab:[facility], [address] [place] [phone] Notes/Report: Glucose, Whole Blood 85 60-115 mg/dL METER # : [id number] Pathology Reviewed date:07/16/2024 12:43:37 AM Interpretation: Performing Lab:[facility], [address] [place] [phone] Notes/Report: --- Name: Nahun Wakefield Age/Sex: 49/F : 1975 [facility]#: [id number] Unit#: [id number] Attend Dr: Isra Muñoz MD Re06/01/24 Status : [facility] Location: [facility] Disch: --- SPEC : [id number] RECD: 06/04/24 STATUS: [facility] NUM: [id number] ROBBIN: 06/01/24-144 [facility] DR: Isra Muñoz MD ENTERED: 06/04/24-12 07 [...] Name: Nahun Wakefield Age/Sex: 49/F : 1975 [id number]#: [id number] Attend Dr: Isra Muñoz MD Re06/01/24 Status : [facility] Location: [facility] Disch: --- SPEC : [id number] RECD: 06/04/24 STATUS: [facility] NUM: [id number] ROBBIN: 06/01/24-1 [facility] DR: Isra Muñoz MD ENTERED: 06/04/24-12 07 SP TYPE: Surgical OTHR DR: Frank Duffy MD ORDERED: HE Stain/9, Gross Micro L4/3, IHC/3, Special st. 2/3, H. pylori/3, AB/PAS/3 Gross Description (Continued) stains on A, B and C Copies To: Frank Duffy MD [facility] [address] [place] [address] Isra Muñoz MD [facility] [address] [place] [address] --- Signed (signature on file) Vipul Lynne MD 06/06/24 1527 --- END OF REPORT US abdomen complete Reviewed date:07/16/2024 12:44:47 AM Interpretation: Performing Lab: Notes/Report: [address] [address] Ultrasound Report Signed Patient: Bo Wakefield MR#: [id number] : 1975 Acct:[id number] Age/Sex: 49 / F ADM Date: 06/22/24 Loc: .US Attending Dr: Isra Muñoz MD Ordering Physician: Isra Muñoz MD Date of Service: 06/22/24 Procedure(s): US abdomen complete Accession Number(s): [id number] cc: Frank Duffy MD; Isra Muñoz MD [...] 06/22/24 0810 DD/ 0715 TD/TT: 06/22/24 0745 Private Investigator Surveillance: [place] [address] Ultrasound Report Signed Patient: Bo Wakefield MR#: [id number] : 1975 Acct:[id number] Age/Sex: 49 / F ADM Date: 06/22/24 Loc: HO.US Attending Dr: Isra Muñoz MD Ordering Physician: Isra Muñoz MD Date of Service: 06/22/24 Procedure(s): US abdomen complete Accession Number(s): [id number] cc: Frank Duffy MD; Isar Muñoz MD EXAMINATION: US ABDOMEN HISTORY: EPIGASTRIC [...] 06/22/24 0810 DD/ 0715 TD/TT: 06/22/24 0745 Private Investigator Surveillance: Blood Urea Nitrogen Reviewed date:08/09/2024 09:12:57 AM Interpretation: Performing Lab:[facility], [address] [place] [phone] Notes/Report: Blood Urea Nitrogen 17 9-16 mg/dL Creatinine Reviewed date:08/11/2024 10:07:48 PM Interpretation: Performing Lab:[facility], [address] [place] [phone] Notes/Report: Creatinine 0.63 0.5-1.4 mg/dL Estimated Glomerular Filt Rate > 60 Chronic Kidney Disease: Estimated GFR < 60 mL/min/1.73m2 Severe Kidney Disease: Estimated GFR < 15 mL/min/1.73m2 Reason For Referral Referring Provider First Name Frank Referring Provider Last Name Tati Referring Provider Speciality Internal edicine Referred Organization [facility] Referred Provider Isra Muñoz Referred Address [address] [place] [address],[facility] [address],[place], [place],[address],[place] Referred Provider Specialty Gastroentero logy Referral Priority Routine Referring Provider First Name Frank Referring Provider Last Name Tati Referring Provider Speciality Internal M edicine Referred Organization [facility] Referred Provider Isra Muñoz Referred Address [address] [facility],[place], [place],[address],[place] Referred Provider Specialty Gastroentero logy Referral Priority [...] Status W/U Status Risk Notes Problem Duodenitis (23580038) Duodenitis (K29.80) Active confirmed Problem Epigastric pain (25933451) Abdominal pain, epigastric (R10.13) Active confirmed Problem Gastric ulcer (695877886) Gastric ulcer (K25.9) Active confirmed Problem Gastroesophageal reflux disease (disorder) (863825667) Chronic GERD (K21.9) Active confirmed Vital Signs Temperature 98.0 degrees Fahrenheit 05/30/2024 Blood pressure diastolic 01 mm Hg 05/30/2024 Height 69 in 05/30/2024 Blood pressure systolic 001 mm Hg 05/30/2024 Weight 187 lbs 05/30/2024 BMI 27.61 kg/m2 05/30/2024 Encounters Encounter Location Date Provider Diagnosis [facility] Outpatient [address] [place] [phone] 06/01/2024 Isra Muñoz Gastric ulcer K25.9 ; Hiatal hernia K44.9 ; Duodenitis K29.80 and Abdominal pain R10.9 [facility] [address] [place] [address] 05/30/2024 Isra Muñoz Abdominal pain, epigastric R10.13 and Chronic GERD K21.9 [facility] [address] [place] [address] 05/31/2024 Isra Muñoz [facility] [address] [place] [address] 06/01/2024 Isra Muñoz [facility] [address] [place] [address] 07/16/2024 Isra Muñoz Postprandial epigastric pain R10.13 [...] 05/30/2024 CBC w DIFF 05/30/2024 CT ABD & PELVIS WITH CONTRAST 07/16/2024 Creatinine 07/16/2024 US abdomen complete 05/30/2024 Future Test Test Name Order Date UPPER GI ENDOSCOPY 05/30/2024 Next Appt Details Provider Name:Isra Muñoz , 09/13/2024 11:20:00 AM, [address] [facility], [address], [place], [address], Insurance Providers Payer Name Payer Address Payer Phone Subscriber Number Group Number Insured Name Patient Relationship to Insured Coverage Start Date Coverage End Date MEDICA[employer] OF [facility] [address] [place] [address] [id number] BO WAKEFIELD Self - patient is the insured Medical (General) History Medical History History ICD Code NIDDM Asthma Denies [place],CVA,renal disease Kidney stones Muscle spasms, tendonitis, arthritis Colonoscopy in 2021 [place] [facility]--polyps removed--recommended a F/U in 5-7 years Surgical History Surgery Date(Month/Year) Hysterectomy D&C
[2024-08-15] MEDS: Barium Sulfate Oral (Mocha) 450 ML ORAL.SUSP 900 ML PO (14:49)
== END 2024-08-15 12:23 | disposition home or self-care (01) ==
LOC: HO.CT 12:22
PROVIDERS: PCP Internal Medicine; Visit Provider Internal Medicine
DX: R10.13 Epigastric pain (principal); K25.9 Gastric ulcer, unspecified as acute or chronic, without hemorrhage or perforation
CPT/HCPCS: 74177

== ENCOUNTER → 2024-08-15 12:25 | Outpatient (BNV) | payer MEDICAID, SELFPAY | PROVIDERS: PCP Internal Medicine; Visit Provider Radiology Diagnostic Radiology | DX: N13.30 Unspecified hydronephrosis (principal); R16.2 Hepatomegaly with splenomegaly, not elsewhere classified | CPT/HCPCS: 74177 ==

== ENCOUNTER 2024-11-27 15:32 | Outpatient (AMB) | payer MEDICAID, SELFPAY ==
--- OUTSIDE RECORDS SUMMARY | 2024-06-01 11:00 | XMS_ITS ---
Author Organization [facility] Address [address] [facility] [address] [place] [address] Care Team Providers Care Grievance And Appeals Specialist Name Role Phone Tati (RETIRED) Frank VALVERDE Primary Care Provider Unavailable Isra Muñoz Unavailable [phone] Problems Problem Type SNOMED Code ICD Code Onset Dates Problem Status W/U Status Risk Notes Problem Gastric ulcer (330435652) Gastric ulcer (K25.9) Active confirmed Problem Duodenitis (17227792) Duodenitis (K29.80) Active confirmed Encounters Encounter Location Date Provider Diagnosis [facility] [place] [address] [place] [phone] 06/01/2024 Irsa Muñoz Gastric ulcer K25. 9 ; Hiatal [...] Next Appt Details Provider Name:Isra Muñoz , 12/12/2024 03:40:00 PM, [address] [facility], [address], [place], [address], Progress Notes * BO WAKEFIELD LDOB:1974 (49 yo F)Acc No.[id number]:06/01/2024 EGD/MAC Patient: BO KATHLEEN Provider: Jalen Muñoz MD :1975 A ge:49 Y S ex:Female Date:06/01/2024 Address:[address] [place], [place] [phone] Pcp:Frank Duffy (RETIRED) MD Subjective: * Chief Complaints: * * Medical [...] 0 06/01/2024 Generated for Jose rosario/Becca/Albasmitting on: 0 11/27/2024 04:49 PM EDT
--- NOTE | 2024-11-27 15:35 | A.OFFVIS_ITS ---
Vital Signs 11/27/24 15:45 Height 5 ft 9 in Weight 192 lb BMI 28.4 BP 112/72 Intake Visit Reasons: [employer] annual exam Clay Miller: Clay Miller Present (Mariella) Accompanied by: Self / Same As Patient Allergies morphine Allergy (Intermediate, Verified 11/27/24 15:46) Headache antiseptic wipes Allergy (Severe, Uncoded 06/01/24 14:05) Rash Is last menstrual period known: No Post menopausal: No Patient : No HPI Comments Details: Presenting for annual exam. No complaints. Last Pap/HPV Last Mammogram was BI-RADS 1 in 08/02 Last Colonoscopy was 2 years ago, the recommendation was to repeat in [facility] Medical History Kidney stones Arthritis Asthma Diabetes Migraine Surgical History H/O dilation and curettage H/O lithotripsy History of hysterectomy Family History Mother Asthma Father Heart attack Paternal Grandmother Diabetes Social History Household Members: Children Housing: Apartment Are you a primary child care education coordinator to a significant other at home: No Do you presently have visiting nurse or other home services: No Alcohol intake: current Alcohol intake frequency: holidays/special occasions only Patient Tobacco Use Status: Former Tobacco user Tobacco use type: Cigarette Patient : No Current occupational status: employed 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 Sexual orientation: Straight/Heterosexual Gender identity: Female Female Reproductive History Menstrual Total pregnancies: 5 Full term: 3 Ab spontaneous: 2 Date of Mammogram: 08/04/23 (bi rad 1) Review of Systems Const All systems reviewed & are unremarkable except as noted in HPI and below Card Reports as per HPI and Reports no additional complaints Resp Reports as per HPI and Reports no additional complaints GI Reports as per HPI and Reports no additional complaints Reports as per HPI Physical Exam Vital Signs: Last Vital Signs BP 112/72 11/27/24 15:45 BMI result Body Mass Index 28.4 Const General: cooperative, healthy appearing and comfortable General: Yes bladder normal to palpation External Female Exam: No lesion Speculum Exam - Vagina: normal appearance of the vagina, normal vaginal discharge and not erythematous Speculum Exam - Cervix: Cervix absent Bimanual exam- vagina & uterus: bladder normal to palpation and uterus absent Bimanual Exam- Adnexa, other: Other (No masses detected) Assessment & Plan Assessment & Plan (1) Well woman exam: Code(s): Z01.419 - Encounter for gynecological examination (general) (routine) without abnormal findings Category: Medical Plan: Cotesting not indicated since the patient had a history of hysterectomy with no history of abnormal Pap smear. Mammogram ordered. Counseled the patient about the recommended dietary allowance of 1000 mg of Calcium & 600 IU of vitamin D. The patient was instructed to perform monthly self-breast exams and to schedule an annual exam in a year; All questions answered and the patient verbalized understanding. Instructed the patient to schedule annual exam in a year Orders: Orders MM tomosynthesis screening BI Today Z12.31 - Encounter for screening mammogram for malignant neoplasm of breast Coding Level of Care Code Est Pt Prev Care 40-64y([address]) Diagnoses Well woman exam Z01.419
[2024-11-27 15:45] VITALS: BP 112/72; BMI 28.4
== END 2024-11-27 15:58 | disposition home or self-care (01) ==
LOC: HO.HWS 15:33
PROVIDERS: PCP Internal Medicine; Visit Provider Obstetrics & Gynecology
DX: Z01.419 Encounter for gynecological examination (general) (routine) without abnormal findings (principal)
CPT/HCPCS: 99396; 99459

== ENCOUNTER → 2024-11-27 15:32 | Outpatient (BNVA) | payer MEDICAID, SELFPAY | PROVIDERS: PCP Internal Medicine; Visit Provider Obstetrics & Gynecology | DX: Z01.419 Encounter for gynecological examination (general) (routine) without abnormal findings (principal) | CPT/HCPCS: 99396 ==

== ENCOUNTER 2024-12-13 06:04 | Outpatient (REF) | payer OTHER, SELFPAY ==
--- OUTSIDE RECORDS SUMMARY | 2024-06-01 11:00 | XMS_ITS ---
Author Organization [facility] Address [address] [place] [address] Care Team Providers Care Improvement Rn Name Role Phone ALE NULL M.D. Primary Care Provider Isra Rivera [phone] Problems Problem Type SNOMED Code ICD Code Onset Dates Problem Status W/U Status Risk Notes Problem Gastric ulcer (785822545) Gastric ulcer (K25.9) Active confirmed Problem Duodenitis (29731588) Duodenitis (K29.80) Active confirmed Encounters Encounter Location Date Provider Diagnosis [facility] [address] [place] [phone] 06/01/2024 Isra Muñoz Gastric ulcer K25. 9 [...] Provider Name:Isra Muñoz , 02/22/2025 02:30:00 PM, [address] [place] [address], [phone], Progress Notes * BO WAKEFIELD LDOB:1974 (49 yo F)Acc No.[id number]:06/01/2024 EGD/MAC Patient: BO KATHLEEN Provider: Jalen Muñoz MD :1975 A ge:49 Y S ex:Female Date:06/01/2024 Address:[address] [place], [place] [phone] Pcp:ALE NULL M.D. Subjective: * Chief Complaints: [...] MD Date: 0 06/01/2024 Generated for Jose rosario/Becca/Jerryitting on: 0 12/13/2024 06:06 AM EDT
--- OUTSIDE RECORDS SUMMARY | 2024-09-13 07:20 | XMS_ITS ---
Author Organization [facility] Address [address] [facility] [address] [place] [address] Care Team Providers Care Legal Instructor Name Role Phone ALE NULL M.D. Primary Care Provider Isra Rivera [phone] REASON FOR VISIT stomach pressure and nausea after eating Encounters Encounter Location Date Provider Diagnosis [facility] [address] [address] 09/13/2024 Isra Muñoz Plan Of Treatment Next Appt Details Provider Name:Isra Muñoz , 02/22/2025 02:30:00 PM, [address] [place] [address] , [place], [place], [phone], Progress Notes * BO WAKEFIELD LDOB:1974 (49 yo F)Acc No.[id number]:09/13/2024 Progress Notes Patient: BO KATHLEEN Provider: Jalen Muñoz MD :1975 A ge:49 Y S ex:Female Date:09/13/2024 Address:[address] [place], [place] [phone] Pcp:ALE NULL M.D. Subjective: * Chief Complaints: [...] 0 09/13/2024 Generated for Jose rosario/Becca/Gopal on: 0 12/13/2024 06:06 AM EDT
--- OUTSIDE RECORDS SUMMARY | 2024-12-12 11:40 | XMS_ITS ---
Author Organization [facility] Address [address] [place] [address] Care Team Providers Care Marketing Intern Name Role Phone ALE NULL M.D. Primary Care Provider Isra Rivera [phone] Allergies No Known Allergies REASON FOR VISIT Patient presents today for stomach pressure and nausea after eating Medications Medication SIG (Take, Route, Frequency, Duration) Notes Start Date End Date Status Ondansetron 4 MG 1 tablet on the tong ue and allow to dissolve Orally Every 4 to 6 hours for nausea for 30 days 12/12/2024 Active Protonix 40 MG 1 Orally Twice a day with one before the morning meal and one before the evening meal for 30 day(s) Activ e metFORMIN HCl 1000 MG 1 tablet with a me al Orally Twice a day for 30 days 05/30/2024 Active Arnuity Ellipta 100 MCG/ACT 1 puff Inhalation Once a day Active Albuterol Sulfate HFA 108 (90 Base) MCG/ACT 1 puff as needed Inhalation every 4 hrs Active Vicodin ES Active Baclofen 10 MG/20ML as directed Intrathe matt Three times a day Active Lisinopril 5 MG 2 tablets Orally Onc e a day Active Claritin 10 MG 1 tablet Orally Once a day Active Fioricet 50-300-40 MG 1 capsule as neede d Orally every 4 hrs Active Doxycycline 40 MG 1 capsule in the mor emerson on an empty stomach Orally Once a day Active Zofran 4 MG 1 tab Orally PRN for as needed days Active Social History Tobacco Use: Social History Observation [...] Problem Status W/U Status Risk Notes Problem Anemia (825432225) Anemia (D64.9) Active confirmed Problem Hiatal hernia (24591183) Hiatal hernia (K44.9) Active confirmed Problem Nausea (845334514) Nausea (R11.0) Active confirmed Problem Colon cancer screening (386342682) Colon cancer screening (Z12.11) Active confirmed Vital Signs Temperature 98.7 degrees Fahrenheit 12/13/19 25 Blood pressure systolic 001 mm Hg 12/13/19 25 Blood pressure diastolic 01 mm Hg 025 Height 69 in 12/12/2024 Weight 192 lbs 12/12/2024 BMI 28.35 kg/m2 12/12/2024 Procedures Procedure Date Ordered Date Performed Result Body Sit e UPPER GI ENDOSCOPY 12/12/2024 N/A Encounters Encounter Location Date Provider Diagnosis [facility] [address] [place] [address] 12/12/2024 Isra Muñoz Anemia D64.9 ; Gastric ulcer K25.9 ; Hiatal hernia K44.9 ; Nausea R11.0 and Colon cancer screening Z12.11 Assessments Encounter Date Diagnosis (ICD Code) Assessment Notes Treatment Notes Treatment Clinical Notes Section Notes 12/12/2024 Anemia (ICD-10 - D64.9) Overall, Tamika appears well. She does appear to have had some clinical improvement after the endoscopy with less abdominal pain on the higher dose of Protonix and having stopped her naproxen. She is still having some early satiety and nausea but her weight has remained very stable since I met her in May. We did review the findings on the endoscopy and I did recommend a follow-up endoscopy to assess for ulcer healing and to be sure things have improved by putting her on the higher dose of the Protonix and stopping her NSAID. Full consent has been obtained for the endoscopy, including risks of bleeding and perforation. The procedure will be done with monitored anesthesia care. She was advised not to use any metformin on the day of the procedure. Depending on the results of the endoscopy and her clinical course we might need to get a gastric emptying study to rule out any underlying gastroparesis in relation to the diabetes if her upper GI complaints of the early satiety persist. She does have the hiatal hernia but I do not think that needs to have surgical correction at this time but we will need to keep that in mind if things were to change. I shall check a follow-up CBC, iron profile, and B12 and folate level in regard to her anemia. She is not taking iron presently but we may need to talk to her about getting restarted on that or getting IV iron infusions if indeed she is quite iron deficient. At some point we may need to consider a colonoscopy if she remains anemic with iron deficiency. However, if things are stable in that regard then we could probably wait until 2026 for her next colonoscopy given her last exam being in 2021 while she was living in [place]. I did advise Tamika to contact me prior to the endoscopy if she has any problems or questions I can be of assistance with. She was comfortable with the plan. Thank you again for allowing me to participate in Tamika's care. I shall continue to keep you advised of her progress. 12/12/2024 Gastric ulcer (ICD-10 - K25.9) Continue the Protonix twice a day Overall, Tamika appears well. She does appear to have had some clinical improvement after the endoscopy with less abdominal pain on the higher dose of Protonix and having stopped her naproxen. She is still having some early satiety and nausea but her weight has remained very stable since I met her in May. We did review the findings on the endoscopy and I did recommend a follow-up endoscopy to assess for ulcer healing and to be sure things have improved by putting her on the higher dose of the Protonix and stopping her NSAID. Full consent has been obtained for the endoscopy, including risks of bleeding and perforation. The procedure will be done with monitored anesthesia care. She was advised not to use any metformin on the day of the procedure. Depending on the results of the endoscopy and her clinical course we might need to get a gastric emptying study to rule out any underlying gastroparesis in relation to the diabetes if her upper GI complaints of the early satiety persist. She does have the hiatal hernia but I do not think that needs to have surgical correction at this time but we will need to keep that in mind if things were to change. I shall check a follow-up CBC, iron profile, and B12 and folate level in regard to her anemia. She is not taking iron presently but we may need to talk to her about getting restarted on that or getting IV iron infusions if indeed she is quite iron deficient. At some point we may need to consider a colonoscopy if she remains anemic with iron deficiency. However, if things are stable in that regard then we could probably wait until 2026 for her next colonoscopy given her last exam being in 2021 while she was living in [place]. I did advise Tamika to contact me prior to the endoscopy if she has any problems or questions I can be of assistance with. She was comfortable with the plan. Thank you again for allowing me to participate in Tamika's care. I shall continue to keep you advised of her progress. 12/12/2024 Hiatal hernia (ICD-10 - K44.9) Overall, Tamika appears well. She does appear to have had some clinical improvement after the endoscopy with less abdominal pain on the higher dose of Protonix and having stopped her naproxen. She is still having some early satiety and nausea but her weight has remained very stable since I met her in May. We did review the findings on the endoscopy and I did recommend a follow-up endoscopy to assess for ulcer healing and to be sure things have improved by putting her on the higher dose of the Protonix and stopping her NSAID. Full consent has been obtained for the endoscopy, including risks of bleeding and perforation. The procedure will be done with monitored anesthesia care. She was advised not to use any metformin on the day of the procedure. Depending on the results of the endoscopy and her clinical course we might need to get a gastric emptying study to rule out any underlying gastroparesis in relation to the diabetes if her upper GI complaints of the early satiety persist. She does have the hiatal hernia but I do not think that needs to have surgical correction at this time but we will need to keep that in mind if things were to change. I shall check a follow-up CBC, iron profile, and B12 and folate level in regard to her anemia. She is not taking iron presently but we may need to talk to her about getting restarted on that or getting IV iron infusions if indeed she is quite iron deficient. At some point we may need to consider a colonoscopy if she remains anemic with iron deficiency. However, if things are stable in that regard then we could probably wait until 2026 for her next colonoscopy given her last exam being in 2021 while she was living in [place]. I did advise Tamika to contact me prior to the endoscopy if she has any problems or questions I can be of assistance with. She was comfortable with the plan. Thank you again for allowing me to participate in Tamika's care. I shall continue to keep you advised of her progress. 12/12/2024 Nausea (ICD-10 - R11.0) Continue the Zofran as needed for the nausea Overall, Tamika appears well. She does appear to have had some clinical improvement after the endoscopy with less abdominal pain on the higher dose of Protonix and having stopped her naproxen. She is still having some early satiety and nausea but her weight has remained very stable since I met her in May. We did review the findings on the endoscopy and I did recommend a follow-up endoscopy to assess for ulcer healing and to be sure things have improved by putting her on the higher dose of the Protonix and stopping her NSAID. Full consent has been obtained for the endoscopy, including risks of bleeding and perforation. The procedure will be done with monitored anesthesia care. She was advised not to use any metformin on the day of the procedure. Depending on the results of the endoscopy and her clinical course we might need to get a gastric emptying study to rule out any underlying gastroparesis in relation to the diabetes if her upper GI complaints of the early satiety persist. She does have the hiatal hernia but I do not think that needs to have surgical correction at this time but we will need to keep that in mind if things were to change. I shall check a follow-up CBC, iron profile, and B12 and folate level in regard to her anemia. She is not taking iron presently but we may need to talk to her about getting restarted on that or getting IV iron infusions if indeed she is quite iron deficient. At some point we may need to consider a colonoscopy if she remains anemic with iron deficiency. However, if things are stable in that regard then we could probably wait until 2026 for her next colonoscopy given her last exam being in 2021 while she was living in [place]. I did advise Tamika to contact me prior to the endoscopy if she has any problems or questions I can be of assistance with. She was comfortable with the plan. Thank you again for allowing me to participate in Tamika's care. I shall continue to keep you advised of her progress. 12/12/2024 Colon cancer screening (ICD-10 - Z12.11) Overall, Tamika appears well. She does appear to have had some clinical improvement after the endoscopy with less abdominal pain on the higher dose of Protonix and having stopped her naproxen. She is still having some early satiety and nausea but her weight has remained very stable since I met her in May. We did review the findings on the endoscopy and I did recommend a follow-up endoscopy to assess for ulcer healing and to be sure things have improved by putting her on the higher dose of the Protonix and stopping her NSAID. Full consent has been obtained for the endoscopy, including risks of bleeding and perforation. The procedure will be done with monitored anesthesia care. She was advised not to use any metformin on the day of the procedure. Depending on the results of the endoscopy and her clinical course we might need to get a gastric emptying study to rule out any underlying gastroparesis in relation to the diabetes if her upper GI complaints of the early satiety persist. She does have the hiatal hernia but I do not think that needs to have surgical correction at this time but we will need to keep that in mind if things were to change. I shall check a follow-up CBC, iron profile, and B12 and folate level in regard to her anemia. She is not taking iron presently but we may need to talk to her about getting restarted on that or getting IV iron infusions if indeed she is quite iron deficient. At some point we may need to consider a colonoscopy if she remains anemic with iron deficiency. However, if things are stable in that regard then we could probably wait until 2026 for her next colonoscopy given her last exam being in 2021 while she was living in [place]. I did advise Tamika to contact me prior to the endoscopy if she has any problems or questions I can be of assistance with. She was comfortable with the plan. Thank you again for allowing me to participate in Tamika's care. I shall continue to keep you advised of her progress. Plan Of Treatment Medication Medication Name Sig Start Date Stop Date Notes Ondansetron 4 MG 1 tablet on the tong ue and allow to dissolve Orally Every 4 to 6 hours for nausea for 30 days 12/12/2024 Treatment Notes Assessment Notes Gastric ulcer Continue the Protoni x twice a day Nausea Continue the Zofran as needed for the nausea Pending Test Test Name Order Date UPPER GI ENDOSCOPY 12/12/2024 IRON + IBC (FE) 12/12/2024 CBC w DIFF 12/12/2024 Ferritin 12/12/2024 Vitamin B12 and Folate 12/12/2024 Next Appt Details Provider Name:Isra Muñoz , 02/22/2025 02:30:00 PM, [address] [place] [address], [id number], Progress Notes * BO WAKEFIELD LDOB:1974 (49 yo F)Acc No.[id number]:12/12/2024 Progress Notes Patient: BO KATHLEEN Provider: Jalen Muñoz MD :1975 A ge:49 Y S ex:Female Date:12/12/2024 Address:[address] [place] [address] Pcp:ALE NULL M.D. Subjective: * Chief Complaints: * 1 . Patient presents today for stomach pressure and nausea after eating. * HPI: i ncontinence: I saw Tamika in follow-up today in regard to her history of gastroesophageal reflux, upper abdominal discomfort, and finding of a gastric ulcer and gastritis on her upper endoscopy. I last saw Tamika in May, at which time she underwent an upper endoscopy for evaluation of her abdominal discomfort and reflux.This revealed evidence of a moderate size hiatal hernia, some mild duodenitis, antral gastritis, and a gastric ulcer. There was also some ulceration and friability noted in the proximal stomach. Biopsies throughout the stomach were all negative for H. pylori. The biopsies did show evidence of active erosive esophagitis. At that time I did increase her Protonix from once a day to twice a day. I also advised her to start some iron supplement as she was noted to have anemia with a hemoglobin of 9.9 and MCV of 80. I also had her stop her naproxen that she had been using regularly for her neuropathy pain in her feet. She did have an abdominal ultrasound in June that was negative for any gallstones although did show some evidence of fatty liver. A liver profile in July was completely normal. She did have a CT scan in August did not reveal any evidence of GI pathology other than some component of constipation. She was noted to have a left-sided kidney stone at the vesicoureteral junction. She advises me that she will be seeing her PCP next week and is looking to get a urology referral for that. In general she does report that her previous abdominal pain has resolved after doubling up on the Protonix and stopping her naproxen. However, she is still having some reflux symptoms as well as some component of early satiety and nausea. She denies any dysphagia or vomiting. She describes that her bowel movements have remained irregular but without melena nor medic easy. She denies any other abdominal pains, jaundice, and has not had any weight loss since I met her earlier this year. Her CBC in July did show some improvement with a hemoglobin of 10.9. * Medical History: N IDDM, Asthma, Denies OK,CVA,renal disease, Kidney stones, Muscle spasms, tendonitis, arthritis, Colonoscopy in 2021 in [place]- polyps removed- recommended a F/U in 5-7 years, Upper endoscopy in May 2024 revealed a moderate-sized hiatal hernia, upper endoscopy in May 2024 revealed a moderate size hiatal hernia, gastric ulcer, antral gastritis, and proximal gastritis. Biopsies throughout the stomach and around the ulcer were negative for malignancy and negative for H. pylori. Her Protonix was increased to twice a day at that time. She was also advised to stop all her naproxen.. * Surgical History: H ysterectomy , D&C . * Family History: F ather: , diagnosed with Heart disease. M other: alive. No family history of colon cancer or peptic ulcer disease. No family history of liver cancer. * Social History: T obacco Use: T obacco Use/Smoking P atient is a f ormer smoker. D rugs/Alcohol: A lcohol Screen D id you have a drink containing alcohol in the past year? N o, P oints 0 , I nterpretation N egative. M iscellaneous: M arital status: . 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 N onsmoker; no sig alcohol. * Medications: T aking Zofran 4 MG Tablet 1 tab Orally PRN , Taking Fioricet 50-300-40 MG Capsule 1 capsule as needed Orally every 4 hrs , Taking Doxycycline 40 MG Capsule Delayed Release 1 capsule in the morning on an empty stomach Orally Once a day , Taking Albuterol Sulfate HFA 108 (90 Base) MCG/ACT Aerosol Solution 1 puff as needed Inhalation every 4 hrs , Taking Claritin 10 MG Tablet 1 tablet Orally Once a day , Taking Lisinopril 5 MG Tablet 2 tablets Orally Once a day , Taking Baclofen 10 MG/20ML Solution as directed Intrathecal Three times a day , Taking Vicodin ES , Taking Arnuity Ellipta 100 MCG/ACT Aerosol Powder Breath Activated 1 puff Inhalation Once a day , Taking metFORMIN HCl 1000 MG Tablet 1 tablet with a meal Orally Twice a day , Taking Protonix 40 MG Tablet Delayed Release 1 Orally Twice a day with one before the morning meal and one before the evening meal , Discontinued Naproxen 500 MG Tablet 1 tablet with food or milk as needed Orally every 12 hrs , Medication List reviewed and reconciled with the patient * Allergies: N .K.D.A. Objective: * Vitals: W t:192lbs, Ht: 69 in, BMI:28.35Index, BP:001/01mm Hg, Temp:98.7, Ht-cm: 175.26, Wt-k.09. Assessment: * Assessment: 1. A nemia - D64.9 (Primary) 2 . G astric ulcer - K25.9 3 .?Hiatal hernia - K44.9 4 . N ausea - R11.0 5 . C olon cancer screening - Z12.11 Overall, Tamika appears well. She does appear to have had some clinical improvement after the endoscopy with less abdominal pain on the higher dose of Protonix and having stopped her naproxen. She is still having some early satiety and nausea but her weight has remained very stable since I met her in May. We did review the findings on the endoscopy and I did recommend a follow-up endoscopy to assess for ulcer healing and to be sure things have improved by putting her on the higher dose of the Protonix and stopping her NSAID. Full consent has been obtained for the endoscopy, including risks of bleeding and perforation. The procedure will be done with monitored anesthesia care. She was advised not to use any metformin on the day of the procedure. Depending on the results of the endoscopy and her clinical course we might need to get a gastric emptying study to rule out any underlying gastroparesis in relation to the diabetes if her upper GI complaints of the early satiety persist. She does have the hiatal hernia but I do not think that needs to have surgical correction at this time but we will need to keep that in mind if things were to change. I shall check a follow-up CBC, iron profile, and B12 and folate level in regard to her anemia. She is not taking iron presently but we may need to talk to her about getting restarted on that or getting IV iron infusions if indeed she is quite iron deficient. At some point we may need to consider a colonoscopy if she remains anemic with iron deficiency. However, if things are stable in that regard then we could probably wait until 2026 for her next colonoscopy given her last exam being in 2021 while she was living in [place]. I did advise Tamika to contact me prior to the endoscopy if she has any problems or questions I can be of assistance with. She was comfortable with the plan. Thank you again for allowing me to participate in Tamika's care. I shall continue to keep you advised of her progress. Plan: * Treatment: 2.?Gastric ulcer?LAB: IRON + IBC (FE) ?LAB: CBC w DIFF ?LAB: Ferritin ?LAB: Vitamin B12 and Folate ?Procedure: UPPER GI ENDOSCOPY* with MACsched for 02/22/25 a t 2:30 pm Notes: Continue the Protonix twice a day??3.?Hiatal hernia?LAB: IRON + IBC (FE) ?LAB: CBC w DIFF ?LAB: Ferritin ?LAB: Vitamin B12 and Folate ?Procedure: UPPER GI ENDOSCOPY* with MACsched for 02/22/25 a t 2:30 pm 4.?Nausea? Start Ondansetron Tablet Disintegrating, 4 MG, 1 tablet on the tongue and allow to dissolve, Orally, Every 4 to 6 hours for nausea, 30 days, 30, Refills 3.?LAB: IRON + IBC (FE) ?LAB: CBC w DIFF ?LAB: Ferritin ?LAB: Vitamin B12 and Folate ?Procedure: UPPER GI ENDOSCOPY* with MACsched for 02/22/25 a t 2:30 pm Notes: Continue the Zofran as needed for the nausea?? * Procedure Codes: 4 3235 UPPR GI ENDOSCOPY, DIAGNOSIS * Preventive Medicine: Counseling: C are goal follow-up plan: A rhoda Normal BMI Follow-up D ietary management education, guidance, and counseling, B OK management provided Y es. * * The named appointment provid er may or may not be the originator of this progress note, and it is not deemed complete until electronically signed by the appointment provider. Sign off status: Pending * Provider: Jalen Muñoz MD Date: 12/12/2024 Generated for Jose rosario/Becca/Jerryitting on: 12/13/2024 06:06 AM EDT History and Physical Notes * HPI (History of Present Illness) Category Sub-Category Detail Notes Category Not es incontinence I saw Tamika in follow-up today in regard to her history of gastroesophageal reflux, upper abdominal discomfort, and finding of a gastric ulcer and gastritis on her upper endoscopy. I last saw Tamika in May, at which time she underwent an upper endoscopy for evaluation of her abdominal discomfort and reflux.This revealed evidence of a moderate size hiatal hernia, some mild duodenitis, antral gastritis, and a gastric ulcer. There was also some ulceration and friability noted in the proximal stomach. Biopsies throughout the stomach were all negative for H. pylori. The biopsies did show evidence of active erosive esophagitis. At that time I did increase her Protonix from once a day to twice a day. I also advised her to start some iron supplement as she was noted to have anemia with a hemoglobin of 9.9 and MCV of 80. I also had her stop her naproxen that she had been using regularly for her neuropathy pain in her feet. She did have an abdominal ultrasound in June that was negative for any gallstones although did show some evidence of fatty liver. A liver profile in July was completely normal. She did have a CT scan in August did not reveal any evidence of GI pathology other than some component of constipation. She was noted to have a left-sided kidney stone at the vesicoureteral junction. She advises me that she will be seeing her PCP next week and is looking to get a urology referral for that. In general she does report that her previous abdominal pain has resolved after doubling up on the Protonix and stopping her naproxen. However, she is still having some reflux symptoms as well as some component of early satiety and nausea. She denies any dysphagia or vomiting. She describes that her bowel movements have remained irregular but without melena nor medic easy. She denies any other abdominal pains, jaundice, and has not had any weight loss since I met her earlier this year. Her CBC in July did show some improvement with a hemoglobin of 10.9.
--- OUTSIDE RECORDS SUMMARY | 2024-12-13 06:06 | XMS_ITS | Patient Health Record ---
Author Organization [facility] Address [address] [place] [address] Care Team Providers Care Shearer Screen Measurer And Trimmer Name Role Phone ALE NULL M.D. Primary Care Provider Isra Rivera [phone] Allergies No Known Allergies Results Component Value Reference Range Notes Lipase Reviewed date:06/01/2024 05:32:27 PM Interpretation: Performing Lab:[facility], [address] [place] [phone] Notes/Report: Lipase 17 8-78 U/L Complete Blood Count Auto Di ff Reviewed date:06/01/2024 05:28:58 PM Interpretation: Performing Lab:[facility], [address] [place] [phone] Notes/Report: White Blood Count 7.6 4.8-10.8 X10*3/uL [...] Panel Reviewed date:06/01/2024 05:31:48 PM Interpretation: Performing Lab:[address] [phone] Notes/Report: Bilirubin Total 0.7 0.0-1.0 mg/dL Bilirubin Direct 0.1 0.0-0.5 mg/dL Aspartate Amino Transferase 17 5-31 U/L Alanine Aminotransferase 12 0-31 U/L Total Protein 6.2 6.5-8.0 g/dL Albumin Level 3.7 3.5-5.0 g/dL Alkaline Phosphatase 49 39-117 U/L Glucose, Whole Blood Reviewed date:06/01/2024 05:27:23 PM Interpretation: Performing Lab:[address] [phone] Notes/Report: Glucose, Whole Blood 85 60-115 mg/dL METER # : [id number] Pathology Reviewed date:07/16/2024 12:43:37 AM Interpretation: Performing Lab:[address] [phone] Notes/Report: US abdomen complete Reviewed date:07/16/2024 12:44:47 AM Interpretation: Performing Lab: Notes/Report: [address] [address] Ultrasound Report Signed Patient: Melisa Wakefield MR#: [id number] 520 : 1975 Acct:[id number] Age/Sex: 49 / F ADM Date: 06/22/24 Loc: HO.US Attending Dr: Isra Muñoz MD Ordering Physician: Isra Muñoz MD Date of Service: 06/22/24 Procedure(s): US abdomen complete Accession Number(s): [id number] cc: Frank Duffy MD; Isra Muñoz MD [...] 06/22/24 0810 DD/ 0715 TD/TT: 06/22/24 0745 Compugraph Operator: Blood Urea Nitrogen Reviewed date:08/09/2024 09:12:57 AM Interpretation: Performing Lab:[facility], [address] [place] [phone] Notes/Report: Blood Urea Nitrogen 17 9-16 mg/dL Creatinine Reviewed date:08/11/2024 10:07:48 PM Interpretation: Performing Lab:[facility], [address] [place] [phone] Notes/Report: Creatinine 0.63 0.5-1.4 mg/dL Estimated Glomerular Filt Rate > 60 Chronic Kidney Disease: Estimated GFR < 60 mL/min/1.73m2 Severe Kidney Disease: Estimated GFR < 15 mL/min/1.73m2 CT abdomen pelvis w con (Not yet reviewed by provider) Interpretation: Performing Lab: Notes/Report: [address] [place] [address] CT Scan Report Signed Patient: Melisa Wakefield MR#: [id number] 520 : 1975 Acct:[id number] Age/Sex: 49 / F ADM Date: 08/15/24 Loc: HO.CT Attending Dr: Isra Muñoz MD Ordering Physician: Isra Muñoz MD Date of Service: 08/15/24 Procedure(s): CT abdomen pelvis w IV con Accession Number(s): [id number] cc: Frank Duffy MD; Isra Muñoz MD Report Number: [id number]: Total DLP = 514.00 mGy-cm EXAMINATION: CT ABDOMEN AND PELVIS WITH CONTRAST CLINICAL INFORMATION: Gastric ulcer. COMPARISON: None available. TECHNIQUE: Multidetector volumetric images were obtained from the superior aspect of the liver through the pubic symphysis following administration 85 mL of Omnipaque 350 intravenous contrast. Sagittal and coronal reformatted images were obtained on the technologist's workstation. Oral contrast: [address] examination was performed using dose optimization techniques as appropriate, variously including the following: *Automated exposure control *Adjustment of mA and/or kV according to patient size (this includes techniques or standardized protocols for targeted exams where dose is matched to indication/reason for exam; i.e. extremities or head) *Use of iterative reconstruction technique DLP: 514 mGy centimeter. FINDINGS: LUNG BASES: No acute airspace disease. LIVER, GALLBLADDER, AND BILIARY TREE: Liver measures 18 cm no focal mass. Portal veins, hepatic veins and intrahepatic portion of the IVC are patent. No intrahepatic biliary ductal dilatation. No pericholecystic fluid collection or gallbladder wall thickening. Common bile duct measures 3 mm. PANCREAS: No focal mass. No peripancreatic fluid collection. No main pancreatic ductal dilatation. SPLEEN: 12 cm. No focal mass. ADRENAL GLANDS: No nodular lesions. KIDNEYS AND URETERS: There is a dilatation of the left ureter from the vesicoureteral junction to the pelvicalyceal system. There is a 2 mm ossification either the vesicoureteral junction versus extraluminal. No dilatation of the right urinary collecting system. No gross renal mass. Normal enhancement pattern of the renal parenchyma. Cortical irregularity in the kidneys. BLADDER: Fluid-filled. GASTROINTESTINAL TRACT: No gross wall thickening. No intestinal obstruction pattern. Abundant stool, large intestine. Appendix is normal. No pneumatosis intestinalis. No pneumoperitoneum. No ascites. ABDOMINAL WALL: No gross hernia. LYMPH NODES: Nonspecific mildly prominent mesenteric lymph nodes. VASCULAR: No aneurysm or dissection, abdominal aorta. PELVIC VISCERA: Absent uterus. OSSEOUS STRUCTURES: Multilevel thoracic and lumbar spondylosis. No acute fracture or gross listhesis. Degenerative changes in the symphysis pubis. No lytic or thickness. Spina bifida occulta S1.. CT/CT abdomen pelvis w IV con IMPRESSION: No intestinal obstruction pattern. Left hydroureteronephrosis with questionable 2 mm obstructing calculus versus intrinsic lesion. Recommend direct inspection. Hepatosplenomegaly. Fleischner guidelines were followed. Electronically signed by: Jose Vieira MD 08/15/2024 03:31 PM EDT Dictated By: Jose Kearney MD Signed By: <Electronically signed by Jose Jacobs MD in OV> 08/15/24 1531 DD/ 1436 TD/TT: 08/15/24 1450 Compugraph Operator: Reason For Referral Referring Provider First Name Frank Referring Provider Last Name Mugg (RETIR ED) Referring Provider Speciality Internal M edicine Referred Organization [facility] Referred Provider Isra Muñoz Referred Address [address] [place] [address],[place], [place],[address],[place] Referred Provider Specialty Gastroentero logy Referral Priority Routine Referring Provider First Name Frank Referring Provider Last Name Tati (RETIR ED) Referring Provider Speciality Internal M edicine Referred Organization [facility] Referred Provider Isra Muñoz Referred Address [address] [place] [address],[place] [address],[place], [place],[address],[place] Referred Provider Specialty Gastroentero logy Referral Priority Routine Medications Medication SIG (Take, Route, Frequency, Duration) Notes Start Date End Date Status Fioricet 50-300-40 MG 1 capsule as neede d Orally every 4 hrs Active Albuterol Sulfate HFA 108 (90 Base) MCG/ACT 1 puff as needed Inhalation every 4 hrs Active Doxycycline 40 MG 1 capsule in the mor emerson on an empty stomach Orally Once a day Active Ondansetron 4 MG 1 tablet on the tong ue and allow to dissolve Orally Every 4 to 6 hours for nausea for 30 days 12/12/2024 Active Vicodin ES Active Baclofen 10 MG/20ML as directed Intrathe matt Three times a day Active Lisinopril 5 MG 2 tablets Orally Onc e a day Active Claritin 10 MG 1 tablet Orally Once a day Active Zofran 4 MG 1 tab Orally PRN for as needed days Active Protonix 40 MG 1 Orally Twice a day with one before the morning meal and one before the evening meal for 30 day(s) Activ e metFORMIN HCl 1000 MG 1 tablet with a me al Orally Twice a day for 30 days 05/30/2024 Active Arnuity Ellipta 100 MCG/ACT 1 puff Inhalation Once a day Active Immunizations Vaccine Route Administration Date Status [...] Negative Section Notes: Nonsmoker; no sig alcohol Nonsmoker; no sig alcohol Problems Problem Type SNOMED Code ICD Code Onset Dates Problem Status W/U Status Risk Notes Problem Colon cancer screening (672739587) Colon cancer screening (Z12.11) Active confirmed Problem Nausea (199575034) Nausea (R11.0) Active confir med Problem Duodenitis (02017803) Duodenitis (K29.80) Active confirmed Problem Epigastric pain (83057287) Abdominal pain, epigastric (R10.13) Active confirmed Problem Hiatal hernia (83885061) Hiatal hernia (K44.9) Active confirmed Problem Anemia (246174375) Anemia (D64.9) Active confir med Problem Gastric ulcer (995860703) Gastric ulcer (K25.9) Active confirmed Problem Gastroesophageal reflux disease (disorder) (074629528) Chronic GERD (K21.9) Active confirmed Vital Signs Temperature 98.7 degrees Fahrenheit 12/12/2024 Blood pressure diastolic 01 mm Hg 12/12/2024 Height 69 in 12/12/2024 Blood pressure systolic 001 mm Hg 12/12/2024 Weight 192 lbs 12/12/2024 BMI 28.35 kg/m2 12/12/2024 Procedures Procedure Date Ordered Date Performed Result Body Sit e UPPER GI ENDOSCOPY 12/12/2024 N/A Encounters Encounter Location Date Provider Diagnosis [facility] [address] [place] [phone] 06/01/2024 Isra Muñoz Gastric ulcer K25.9 ; Hiatal hernia K44.9 ; Duodenitis K29.80 and Abdominal pain R10.9 [facility] [address] [place] [phone] 12/12/2024 Isra Muñoz Anemia D64.9 ; Gastr ic ulcer K25.9 ; Hiatal hernia K44.9 ; Nausea R11.0 and Colon cancer screening Z12.11 [facility] [address] [place] [phone] 05/30/2024 Isra Muñoz Abdominal pain, epigastric R10.13 and Chronic GERD K21.9 [facility] [address] [place] [phone] 05/31/2024 Isra Muñoz [facility] [address] [place] [phone] 06/01/2024 Isra Muñoz [facility] [address] [place] [phone] 07/16/2024 Isra Muñoz Postprandial epigastric pain R10.13 and Gastric ulcer K25.9 [facility] [address] [place] [phone] 09/06/2024 Isra Muñoz Assessments Encounter Date Diagnosis (ICD Code) Assessment Notes Treatment Notes Treatment Clinical Notes Section Notes 06/01/2024 Hiatal hernia (ICD-10 - K44.9) 06/01/2024 Gastric ulcer (ICD-10 - K25.9) 12/12/2024 Anemia (ICD-10 - D64.9) Overall, Tamika [...] in 2021 while she was living in [place]. I did advise Tamika to contact me [...] in 2021 while she was living in [place]. I did advise Tamika to contact me prior to the endoscopy if she has any problems or questions I can be of assistance with. She was comfortable with the plan. Thank you again for allowing me to participate in Tamika's care. I shall continue to keep you advised of her progress. 05/30/2024 Abdominal pain, epigastric (ICD-10 - R10.13) [...] - R10.13) 06/01/2024 Duodenitis (ICD-10 - K29.80) 12/12/2024 Hiatal hernia (ICD-10 - K44.9) Overall, [...] in 2021 while she was living in [place]. I did advise Tamika to contact me prior to the endoscopy if she has any problems or questions I can be of assistance with. She was comfortable with the plan. Thank you again for allowing me to participate in Tamika's care. I shall continue to keep you advised of her progress. 06/01/2024 Abdominal pain (ICD-10 - R10.9) 12/12/2024 Nausea (ICD-10 - R11.0) Continue the [...] in 2021 while she was living in [place]. I did advise Tamika to contact me [...] in 2021 while she was living in [place]. I did advise Tamika to contact me prior to the endoscopy if she has any problems or questions I can be of assistance with. She was comfortable with the plan. Thank you again for allowing me to participate in Tamika's care. I shall continue to keep you advised of her progress. Plan Of Treatment Pending Test Test Name Order Date UPPER GI ENDOSCOPY 12/12/2024 BUN 07/16/2024 LIVER PROFILE 05/30/2024 IRON + IBC (FE) 12/12/2024 CBC w DIFF 05/30/2024 CBC w DIFF 12/12/2024 CT ABD & PELVIS WITH CONTRAST 07/16/2024 Creatinine 07/16/2024 Ferritin 12/12/2024 Vitamin B12 and Folate 12/12/2024 CT abdomen pelvis w con 08/15/2024 US abdomen complete 05/30/2024 Future Test Test Name Order Date UPPER GI ENDOSCOPY 05/30/2024 Next Appt Details Provider Name:Isra Muñoz , 02/22/2025 02:30:00 PM, [address] [place] [address] , [place], [place], [phone], Insurance Providers Payer Name Payer Address Payer Phone Subscriber Number Group Number Insured Name Patient Relationship to Insured Coverage Start Date Coverage End Date [facility] [address] [address] [place], [place] [id number] TWYLAMELISA PHILLIPS Self - patient is the insured MEDICAID OF [facility] [address] [place] [address] [phone] [id number] MELISA WAKEFIELD Self - patient is the insured Medical (General) History Medical History History ICD Code NIDDM Asthma Denies [place],CVA,renal disease Kidney stones Muscle spasms, tendonitis, arthritis [facility] in 2021 [facility]ps removed- recommended a F/U in 5-7 years Upper endoscopy in May 2024 revealed a [...] was also advised to stop all her naproxen. Surgical History Surgery Date(Month/Year) D&C Hysterectomy
[2024-12-13 06:24] LABS: MANUAL DIFF FLAG NO
[2024-12-13 07:52] LABS: Hematocrit 39.0 % (37.0-47.0); Hemoglobin 12.7 g/dl (12.0-16.0); Imm Gran Abs Auto 0.03 X10*3/uL (0.00-0.03); Imm Gran Pct Auto 0.4 % (0.0-0.4); Lymphocytes Absolute Auto 2.8 X10*3/uL (1.2-4.9); Mean Corpuscular HGB Conc 32.6 g/dl (31.0-35.0); Mean Corpuscular Hemoglobin 27.4 pg (27.0-33.0); Mean Corpuscular Volume 84.1 fL (80.0-98.0); NRBC Abs Auto 0.000 X10*3/uL (0.0-0.012); NRBC Pct Auto 0.0 /100WBC (0.0-0.2); Platelet Count 301 X10*3/uL (160-400); Red Blood Count 4.64 X10*6/uL (4.20-5.50); White Blood Count 8.4 X10*3/uL (4.8-10.8)
[2024-12-13 08:29] LABS: Iron 58 mcg/dL (30-160); Percent Iron Saturation 20 % (15-50); Total Iron Binding Capacity 293 mcg/dL (228-428); Unsaturated Iron Binding 235 ug/dL
[2024-12-13 08:44] LABS: Ferritin 9 ng/mL (10-250)
[2024-12-13 08:51] LABS: Folate 16.6 ng/mL (> or = 4.0); Vitamin B12 217 pg/mL (200-900)
== END 2024-12-13 06:05 | disposition home or self-care (01) ==
LOC: HO.LAB 06:04
PROVIDERS: PCP Student in an Organized Health Care Education/Training Program; Visit Provider Internal Medicine
DX: K25.9 Gastric ulcer, unspecified as acute or chronic, without hemorrhage or perforation (principal); K44.9 Diaphragmatic hernia without obstruction or gangrene; D64.9 Anemia, unspecified; R11.0 Nausea
CPT/HCPCS: 36415; 82607; 82728; 82746; 83540; 85025

== ENCOUNTER 2024-12-18 14:25 | Outpatient (AMB) | payer OTHER, SELFPAY ==
--- OUTSIDE RECORDS SUMMARY | 2024-06-01 11:00 | XMS_ITS ---
Author Organization [facility] Address [address] [place] [address] Care Team Providers Care Therapy Aide Name Role Phone ALE NULL M.D. Primary Care Provider Isra Rivera [phone] Problems Problem Type SNOMED Code ICD Code Onset Dates Problem Status W/U Status Risk Notes Problem Gastric ulcer (840067469) Gastric ulcer (K25.9) Active confirmed Problem Duodenitis (19202849) Duodenitis (K29.80) Active confirmed Encounters Encounter Location Date Provider Diagnosis [facility] [address] [place] [phone] 06/01/2024 Isra Muñoz Gastric ulcer K25. 9 [...] Provider Name:Isra Muñoz , 02/22/2025 02:30:00 PM, [address] [place] [address], [phone], Progress Notes * BO WAKEFIELD LDOB:1974 (49 yo F)Acc No.[id number]:06/01/2024 EGD/MAC Patient: BO KATHLEEN Provider: Jalen Muñoz MD :1975 A ge:49 Y S ex:Female Date:06/01/2024 Address:[address] [place], [place] [phone] Pcp:ALE NULL M.D. Subjective: * Chief Complaints: [...] 06/01/2024 Generated for Jose rosario/Becca/Jerryitting on: 0 12/18/2024 04:58 PM EDT
--- OUTSIDE RECORDS SUMMARY | 2024-09-13 07:20 | XMS_ITS ---
Author Organization [facility] Address [address] [facility] [address] [place] [address] Care Team Providers Care Applied Behavior Science Specialist Name Role Phone ALE NULL M.D. Primary Care Provider Isra Rivera [phone] REASON FOR VISIT stomach pressure and nausea after eating Encounters Encounter Location Date Provider Diagnosis [facility] [address] [address] 09/13/2024 Isra Muñoz Plan Of Treatment Next Appt Details Provider Name:Isra Muñoz , 02/22/2025 02:30:00 PM, [address] [place] [address] , [place], [place], [phone], Progress Notes * BO WAKEFIELD LDOB:1974 (49 yo F)Acc No.[id number]:09/13/2024 Progress Notes Patient: BO KATHLEEN Provider: Jalen Muñoz MD :1975 A ge:49 Y S ex:Female Date:09/13/2024 Address:[address] [place], [place] [phone] Pcp:ALE NULL M.D. Subjective: * Chief Complaints: [...] 09/13/2024 Generated for Jose rosario/Becca/Gopal on: 0 12/18/2024 04:59 PM EDT
--- OUTSIDE RECORDS SUMMARY | 2024-12-12 11:40 | XMS_ITS ---
Author Organization [facility] Address [address] [place] [address] Care Team Providers Care Lifeline Representatives Name Role Phone ALE NULL M.D. Primary Care Provider Isra Rivera [phone] Allergies No Known Allergies Results Component Value Reference Range Notes Ferritin (Not yet reviewed b y provider) Interpretation: Performing Lab:[facility], [address] [place] [phone] Notes/Report: Ferritin 9 10-250 ng/mL Vitamin B12 and Folate (Not yet reviewed by provider) Interpretation: Performing Lab:[facility], [address] [place] [phone] Notes/Report: Vitamin B12 217 200-900 pg/mL NORMAL 200-900 PG/ML INDETERMINATE 160-199 PG/ML DEFICIENT < 160 PG/ML Folate 16.6 > or = 4.0 ng/mL Reference Values: > or = 4.0 ng/mL < 4.0 ng/mL suggests folate deficiency Methotrexate, aminopterin and folinic acid (leucovorin) are chemotherapeutic agents whose molecular structures are similar to folate; therefore, the Field Assembly Supervisor folate assay cannot be used for patients using these drugs. REASON FOR VISIT Patient presents today for [...] Status W/U Status Risk Notes Problem Anemia (135531548) Anemia (D64.9) Active confirmed Problem Hiatal hernia (89294139) Hiatal hernia (K44.9) Active confirmed Problem Nausea (699713155) Nausea (R11.0) Active confirmed Problem Colon cancer screening (383226179) Colon cancer screening (Z12.11) Active confirmed Vital Signs Temperature 98.7 degrees Fahrenheit 12/13/19 25 Blood pressure systolic 001 mm Hg 12/13/19 25 Blood pressure diastolic 01 mm Hg 025 Height 69 in 12/12/2024 Weight 192 lbs 12/12/2024 BMI 28.35 kg/m2 12/12/2024 Procedures Procedure Date Ordered Date Performed Result Body Sit e UPPER GI ENDOSCOPY 12/12/2024 N/A Encounters Encounter Location Date Provider Diagnosis [facility] [address] [place] [address] 12/12/2024 Isra Muñoz Anemia D64.9 ; Gastric [...] in 2021 while she was living in [place]. I did advise Tamika to contact me [...] in 2021 while she was living in [place]. I did advise Tamika to contact me [...] in 2021 while she was living in [place]. I did advise Tamika to contact me [...] in 2021 while she was living in [place]. I did advise Tamika to contact me [...] in 2021 while she was living in [place]. I did advise Tamika to contact me [...] Provider Name:Isra Muñoz , 02/22/2025 02:30:00 PM, [address] [place] [address] , [place], [place], [phone], Progress Notes * BO WAKEFIELD LDOB:1974 (49 yo F)Acc No.[id number]:12/12/2024 Progress Notes Patient: BO KATHLEEN Provider: Jalen Muñoz MD :1975 A ge:49 Y S ex:Female Date:12/12/2024 Address:[address] [place] [address] Pcp:ALE NULL M.D. Subjective: * Chief Complaints: [...] * Medical History: N IDDM, Asthma, Denies [place],CVA,renal disease, Kidney stones, Muscle spasms, tendonitis, arthritis, Colonoscopy in 2021 in [place]- polyps removed- recommended a F/U in 5-7 [...] T obacco Use: T obacco Use/Smoking P atemily is a f ormer smoker. D rugs/Alcohol: A lcohol Screen D id you have a drink containing alcohol in the past year? N o, P oints 0 , I nterpretation N egative. M iscellaneous: M arital status: . 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 N onsmoker; no sig alcohol. * [...] in 2021 while she was living in [place]. I did advise Tamika to contact me prior to the endoscopy if she has any problems or questions I can be of assistance with. She was comfortable with the plan. Thank you again for allowing me to participate in Tamika's care. I shall continue to keep you advised of her progress. Plan: * Treatment: Value Reference Range F erritin 9 L 10-250 - ng/mL ?LAB: Vitamin B12 and Folate (Collection Date & Time - 12/13/2024 06:21 AM) * Value Reference Range V itamin B12 217 200-900 - pg/mL * F olate 16.6 > or = 4.0 - ng/mL ?Procedure: UPPER GI ENDOSCOPY* with MACsched for 02/22/25 a t 2:30 pm 2.?Gastric ulcer?LAB: IRON + IBC (FE) ?LAB: CBC w DIFF ?LAB: Ferritin (Collection Date & Time - 12/13/2024 06:21 AM)* Value Reference Range F erritin 9 L 10-250 - ng/mL ?LAB: Vitamin B12 and Folate (Collection Date & Time - 12/13/2024 06:21 AM) * Value Reference Range V itamin B12 217 200-900 - pg/mL * F olate 16.6 > or = 4.0 - ng/mL ?Procedure: UPPER GI ENDOSCOPY* with MACsched for 02/22/25 a t 2:30 pm Notes: Continue the Protonix twice a day??3.?Hiatal hernia?LAB: IRON + IBC (FE) ?LAB: CBC w DIFF ?LAB: Ferritin (Collection Date & Time - 12/13/2024 06:21 AM)* Value Reference Range F erritin 9 L 10-250 - ng/mL ?LAB: Vitamin B12 and Folate (Collection Date & Time - 12/13/2024 06:21 AM) * Value Reference Range V itamin B12 217 200-900 - pg/mL * F olate 16.6 > or = 4.0 - ng/mL ?Procedure: UPPER GI ENDOSCOPY* with MACsched for 02/22/25 a t 2:30 pm 4.?Nausea? Start Ondansetron Tablet Disintegrating, 4 MG, 1 tablet on the tongue and allow to dissolve, Orally, Every 4 to 6 hours for nausea, 30 days, 30, Refills 3.?LAB: IRON + IBC (FE) ?LAB: CBC w DIFF ?LAB: Ferritin (Collection Date & Time - 12/13/2024 06:21 AM)* Value Reference Range F erritin 9 L 10-250 - ng/mL ?LAB: Vitamin B12 and Folate (Collection Date & Time - 12/13/2024 06:21 AM) * Value Reference Range V itamin B12 217 200-900 - pg/mL * F olate 16.6 > or = 4.0 - ng/mL ?Procedure: UPPER GI ENDOSCOPY* with MACsched for 02/22/25 a t 2:30 pm Notes: Continue the Zofran as needed for the nausea?? * Procedure Codes: 4 3235 UPPR GI ENDOSCOPY, DIAGNOSIS * Preventive Medicine: Counseling: C are goal follow-up plan: A rhoda Normal BMI Follow-up D ietary management education, guidance, and counseling, B NH management provided Y es. * * The named appointment provid er may or may not be the originator of this progress note, and it is not deemed complete until electronically signed by the appointment provider. Sign off status: Pending * Provider: Jalen Muñoz MD Date: 12/12/2024 Generated for Jose rosario/Becca/Gopal on: 12/18/2024 04:58 PM EDT History and Physical Notes * HPI [...]
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
[2024-12-18 14:39] VITALS: BP 170/74; PULSE 95; RESP 18; TEMP 36.2; O2SAT 98; BMI 28.8
--- OUTSIDE RECORDS SUMMARY | 2024-12-18 16:59 | XMS_ITS | Patient Health Record ---
Author Organization [facility] Address [address] [place] [address] Care Team Providers Care Optician Apprentice Name Role Phone ALE NULL M.D. Primary Care Provider Isra Rivera [phone] Allergies No Known Allergies Results Component Value Reference Range Notes Ferritin (Not yet reviewed b y provider) Interpretation: Performing Lab:[address] [address] Notes/Report: Ferritin 9 10-250 ng/mL Vitamin B12 and Folate (Not yet reviewed by provider) Interpretation: Performing Lab:[address] [address] Notes/Report: Vitamin B12 217 200-900 pg/mL NORMAL 200-900 PG/ML INDETERMINATE 160-199 PG/ML DEFICIENT < 160 PG/ML Folate 16.6 > or = 4.0 ng/mL Reference Values: > or = 4.0 ng/mL < 4.0 ng/mL suggests folate deficiency Methotrexate, aminopterin and folinic acid (leucovorin) are chemotherapeutic agents whose molecular structures are similar to folate; therefore, the Window Machine Operator folate assay cannot be used for patients using these drugs. Lipase Reviewed date:06/01/2024 05:32:27 PM Interpretation: Performing Lab:[facility], [address] [place] [phone] Notes/Report: Lipase 17 8-78 U/L Complete Blood Count Auto Di ff Reviewed date:06/01/2024 05:28:58 PM Interpretation: Performing Lab:[facility], [address] [place] [phone] Notes/Report: White Blood Count 7.6 4.8-10.8 X10*3/uL [...] Panel Reviewed date:06/01/2024 05:31:48 PM Interpretation: Performing Lab:[facility], [address] [place] [phone] Notes/Report: Bilirubin Total 0.7 0.0-1.0 mg/dL Bilirubin Direct 0.1 0.0-0.5 mg/dL Aspartate Amino Transferase 17 5-31 U/L Alanine Aminotransferase 12 0-31 U/L Total Protein 6.2 6.5-8.0 g/dL Albumin Level 3.7 3.5-5.0 g/dL Alkaline Phosphatase 49 39-117 U/L Glucose, Whole Blood Reviewed date:06/01/2024 05:27:23 PM Interpretation: Performing Lab:[facility], [address] [place] [phone] Notes/Report: Glucose, Whole Blood 85 60-115 mg/dL METER # : [id number] Pathology Reviewed date:07/16/2024 12:43:37 AM Interpretation: Performing Lab:[facility], [address] [place] [phone] Notes/Report: US abdomen complete Reviewed date:07/16/2024 12:44:47 AM Interpretation: Performing Lab: Notes/Report: [address] [place] [address] Ultrasound Report Signed Patient: Melisa Wakefield MR#: [id number] 520 : 1975 Acct:[id number] Age/Sex: 49 / F ADM Date: 06/22/24 Loc: HO.US Attending Dr: Isra Muñoz MD Ordering Physician: Isra Muñoz MD Date of Service: 06/22/24 Procedure(s): US abdomen complete Accession Number(s): [id number] cc: Frank Duffy MD; Isra Muñoz MD [...] Torres MD in OV> 06/22/24 0810 DD/ TD/TT: 06/22/24 0745 Motocross Racer: Blood Urea Nitrogen Reviewed date:08/09/2024 09:12:57 AM Interpretation: Performing Lab:[facility], [address] [place] [phone] Notes/Report: Blood Urea Nitrogen 17 9-16 mg/dL Creatinine Reviewed date:08/11/2024 10:07:48 PM Interpretation: Performing Lab:[facility], [address] [place] [phone] Notes/Report: Creatinine 0.63 0.5-1.4 mg/dL Estimated Glomerular Filt Rate > 60 Chronic Kidney Disease: Estimated GFR < 60 mL/min/1.73m2 Severe Kidney Disease: Estimated GFR < 15 mL/min/1.73m2 CT abdomen pelvis w con (Not yet reviewed by provider) Interpretation: Performing Lab: Notes/Report: [address] [place] [address] CT Scan Report Signed Patient: Melisa Wakefield MR#: [id number] 520 : 1975 Acct:[id number] Age/Sex: 49 / F ADM Date: 08/15/24 Loc: HO.CT Attending Dr: Isra Muñoz MD Ordering Physician: Isra Muñoz MD Date of Service: 08/15/24 Procedure(s): CT abdomen pelvis w IV con Accession Number(s): [id number] cc: Frank Duffy MD; Isra Muñoz MD Report Number: [id number]: Total DLP = 514.00 mGy-cm EXAMINATION: CT [...] Jose Vieira MD 08/15/2024 03:31 PM EDT RP Dictated By: Jose Kearney MD Signed By: <Electronically signed by Jose Jacobs MD in OV> 08/15/24 1531 DD/ 1436 TD/TT: 08/15/24 1450 Motocross Racer: Complete Blood Count Auto Di ff (Not yet reviewed by provider) Interpretation: Performing Lab:[facility], [address] [place] [phone] Notes/Report: White Blood Count 8.4 4.8-10.8 X10*3/uL Red Blood Count 4.64 4.20-5.50 X10*6/uL Hemoglobin 12.7 12.0-16.0 g/dl Hematocrit 39.0 37.0-47.0 % Mean Corpuscular Volume 84.1 80.0-98.0 fL Mean Corpuscular Hemoglobin 27.4 27.0-33.0 pg Mean Corpuscular HGB Conc 32.6 31.0-35.0 g/dl Red Cell Distribution Width 13.6 11.0-16.0 % Platelet Count 301 160-400 X10*3/uL Mean Platelet Volume 9.8 9.4-12.3 fL Neutrophils Percent Auto 53.4 45-73 % Imm Gran Pct Auto 0.4 0.0-0.4 % Lymphocytes Percent Auto 33.7 20-40 % Monocytes Percent Auto 6.9 2-11 % Eosinophils Percent Auto 5.0 0-4 % Basophils Percent Auto 0.6 0-2 % NRBC Pct Auto 0.0 0.0-0.2 /100WBC Neutrophils Absolute Auto 4.5 2.0-8.3 x10*3/u L Imm Gran Abs Auto 0.03 0.00-0.03 X10*3/uL Lymphocytes Absolute Auto 2.8 1.2-4.9 X10*3/u L Monocytes Absolute Auto 0.6 0.1-1.2 X10*3/uL Eosinophils Absolute Auto 0.4 0.0-0.4 X10*3/u L Basophils Absolute Auto 0.1 0.0-0.2 X10*3/uL NRBC Abs Auto 0.000 0.0-0.012 X10*3/uL IRON PROFILE (Not yet revie wed by provider) Interpretation: Performing Lab:[facility], [address] [place] [address] Notes/Report: Iron 58 30-160 mcg/dL Total Iron Binding Capacity 293 228-428 mcg/d L Percent Iron Saturation 20 15-50 % Unsaturated Iron Binding 235 Reason For Referral Referring Provider First Name Frank Referring Provider Last Name Mugg (RETIR ED) Referring Provider Speciality Internal edicine Referred Organization [facility] Referred Provider Isra Muñoz Referred Address [address] [place] [address] [address],[place], [place],[address],[place] Referred Provider Specialty Gastroentero logy Referral Priority Routine Referring Provider First Name Frank Referring Provider Last Name Mugg (RETIR ED) Referring Provider Speciality Internal edicine Referred Organization [facility] Referred Provider Isra Muñoz Referred Address [address] [place] [address], [address],[place], [place],[address],[place] Referred Provider Specialty Gastroentero logy Referral Priority [...] Status Risk Notes Problem Colon cancer screening (867534251) Colon cancer screening (Z12.11) Active confirmed Problem Nausea (306266520) Nausea (R11.0) Active confir med Problem Duodenitis (55768809) Duodenitis (K29.80) Active confirmed Problem Epigastric pain (65613857) Abdominal pain, epigastric (R10.13) Active confirmed Problem Hiatal hernia (42893915) Hiatal hernia (K44.9) Active confirmed Problem Anemia (074550080) Anemia (D64.9) Active confir med Problem Gastric ulcer (550488095) Gastric ulcer (K25.9) Active confirmed Problem Gastroesophageal reflux disease (disorder) (410279495) Chronic GERD (K21.9) Active confirmed Vital Signs Temperature 98.7 degrees Fahrenheit 12/12/2024 Blood pressure diastolic 01 mm Hg 12/12/2024 Height 69 in 12/12/2024 Blood pressure systolic 001 mm Hg 12/12/2024 Weight 192 lbs 12/12/2024 BMI 28.35 kg/m2 12/12/2024 Procedures Procedure Date Ordered Date Performed Result Body Sit e UPPER GI ENDOSCOPY 12/12/2024 N/A Encounters Encounter Location Date Provider Diagnosis [facility] Out[facility] [address] [place], [place] [id number] 06/01/2024 Isra Muñoz Gastric ulcer K25.9 ; Hiatal hernia K44.9 ; Duodenitis K29.80 and Abdominal pain R10.9 [facility] [address] [place] [address] 12/12/2024 Isra Muñoz Anemia D64.9 ; Gastr ic ulcer K25.9 ; Hiatal hernia K44.9 ; Nausea R11.0 and Colon cancer screening Z12.11 [facility] [address] [place] [address] 05/30/2024 Isra Wanda Abdominal pain, epigastric R10.13 and Chronic GERD K21.9 [facility] [address] [place] [address] 05/31/2024 Isra Muñoz [facility] [address] [place] [address] 06/01/2024 Isra Muñoz [facility] [address] [place] [address] 07/16/2024 Isra Muñoz Postprandial epigastric pain R10.13 and Gastric ulcer K25.9 [facility] [address] [place] [address] 09/06/2024 Isra Muñoz Assessments Encounter Date Diagnosis [...] in 2021 while she was living in [place]. I did advise Tamika to contact me [...] in 2021 while she was living in [place]. I did advise Tamika to contact me [...] in 2021 while she was living in [place]. I did advise Tamika to contact me [...] in 2021 while she was living in [place]. I did advise Tamika to contact me [...] in 2021 while she was living in [place]. I did advise Tamika to contact me [...] CT ABD & PELVIS WITH CONTRAST 07/16/2024 Complete Blood Count Auto Diff Creatinine 07/16/2024 IRON PROFILE 12/13/2024 Ferritin 12/12/2024 Vitamin B12 and Folate 12/12/2024 CT abdomen pelvis w con 08/15/2024 US abdomen complete 05/30/2024 Future Test Test Name Order Date UPPER GI ENDOSCOPY 05/30/2024 Next Appt Details Provider Name:Isra Muñoz , 02/22/2025 02:30:00 PM, [address] [place] [address] , [place], [place], [phone], Insurance Providers Payer Name Payer Address Payer Phone Subscriber Number Group Number Insured Name Patient Relationship to Insured Coverage Start Date Coverage End Date [facility] [address] [address] [place], [place] [id number] MELISA WAKEFIELD Self - patient is the insured MEDICAID OF [facility] [address] [place] [address] [id number] MELISA WAKEFIELD Self - patient is the insured Medical (General) History Medical History History ICD Code NIDDM Asthma Denies [place],CVA,renal disease Kidney stones Muscle spasms, tendonitis, arthritis Colonoscopy in 2021 [place]- polyps removed- recommended a F/U in 5-7 [...]
== END 2024-12-18 15:15 | disposition home or self-care (01) ==
LOC: HO.HMCHD 14:25
PROVIDERS: PCP Student in an Organized Health Care Education/Training Program; Visit Provider Student in an Organized Health Care Education/Training Program
DX: J45.909 Unspecified asthma, uncomplicated (principal); E11.42 Type 2 diabetes mellitus with diabetic polyneuropathy; G62.9 Polyneuropathy, unspecified; G43.109 Migraine with aura, not intractable, without status migrainosus; M19.90 Unspecified osteoarthritis, unspecified site; I10 Essential (primary) hypertension; L71.9 Rosacea, unspecified

== ENCOUNTER → 2024-12-18 14:25 | Outpatient (BNVA) | payer OTHER, SELFPAY | PROVIDERS: PCP Student in an Organized Health Care Education/Training Program; Visit Provider Student in an Organized Health Care Education/Training Program | DX: J45.909 Unspecified asthma, uncomplicated (principal); G43.109 Migraine with aura, not intractable, without status migrainosus; M19.90 Unspecified osteoarthritis, unspecified site; E11.42 Type 2 diabetes mellitus with diabetic polyneuropathy; I10 Essential (primary) hypertension; L71.9 Rosacea, unspecified; Z79.84 Long term (current) use of oral hypoglycemic drugs; Z79.899 Other long term (current) drug therapy; Z13.31 Encounter for screening for depression; Z13.39 Encounter for screening examination for other mental health and behavioral disorders | CPT/HCPCS: 96127; 99202 ==

== ENCOUNTER 2025-01-10 15:26 | Outpatient (REF) | payer OTHER, SELFPAY ==
--- OUTSIDE RECORDS SUMMARY | 2024-06-01 11:00 | XMS_ITS ---
Author Organization [facility] Address [address] [place] [address] Care Team Providers Care Chain Offbearer Name Role Phone ALE NULL M.D. Primary Care Provider Isra Rivera [phone] Problems Problem Type SNOMED Code ICD Code Onset Dates Problem Status W/U Status Risk Notes Problem Gastric ulcer (757308128) Gastric ulcer (K25.9) Active confirmed Problem Duodenitis (20011977) Duodenitis (K29.80) Active confirmed Encounters Encounter Location Date Provider Diagnosis [facility] [place] [address] [place] [id number] 06/01/2024 Isra Muñoz Gastric ulcer K25. 9 [...] Provider Name:Isra Muñoz , 02/22/2025 02:30:00 PM, [address] [place] [address], [phone], Progress Notes * BO WAKEFIELD LDOB:1974 (49 yo F)Acc No.[id number]:06/01/2024 EGD/MAC Patient: BO KATHLEEN Provider: Jalen Muñoz MD :1975 A ge:49 Y S ex:Female Date:06/01/2024 Address:[address] [place], [place] [phone] Pcp:ALE NULL M.D. Subjective: * Chief Complaints: [...] 06/01/2024 Generated for Jose rosario/Becca/Albasmitting on: 1 04:42 PM EDT
--- OUTSIDE RECORDS SUMMARY | 2024-09-13 07:20 | XMS_ITS ---
Author Organization [facility] Address 10 [facility] [address] [place] [address] Care Team Providers Care Melting Supervisor Name Role Phone ALE NULL M.D. Primary Care Provider Isra Rivera [phone] REASON FOR VISIT stomach pressure and nausea after eating Encounters Encounter Location Date Provider Diagnosis [facility] [address] [address] 09/13/2024 Isra Muñoz Plan Of Treatment Next Appt Details Provider Name:Isra Muñoz , 02/22/2025 02:30:00 PM, [address] [place] [address] , [place], [place], [phone], Progress Notes * BO WAKEFIELD LDOB:1974 (49 yo F)Acc No.[id number]:09/13/2024 Progress Notes Patient: BO KATHLEEN Provider: Jalen Muñoz MD :1975 A ge:49 Y S ex:Female Date:09/13/2024 Address:[address] [place], [place] [phone] Pcp:ALE NULL M.D. Subjective: * Chief Complaints: [...] 0 09/13/2024 Generated for Jose rosario/Becca/Gopal on: 04:42 PM EDT
--- NOTE | ~2025-01-10 | MM_ITS ---
EXAMINATION: MM SCREENING DIGITAL BREAST TOMOSYNTHESIS, BILATERAL CLINICAL INFORMATION: Screening. Asymptomatic. COMPARISON: Mammography: Comparison is made with available priors TECHNIQUE: Digital breast mammography with tomosynthesis is performed in both the craniocaudal and mediolateral oblique views along with computer-aided detection (CAD). FINDINGS: There are scattered areas of fibroglandular density. There are no significant masses, abnormal calcifications, or other abnormalities. MM/MM tomosynthesis screening BI IMPRESSION: No mammographic evidence of malignancy. ASSESSMENT: BI-RADS Category 1: Negative RECOMMENDATION: Routine annual mammography screening. 1 year F/U This examination should not preclude the clinical evaluation of a suspicious palpable abnormality. This patient's information was entered into a reminder system with a target due date for their next mammogram. Electronically signed by: Verenice Crook DO 01/11/2025 01:15 PM EDT
--- OUTSIDE RECORDS SUMMARY | 2025-01-10 16:42 | XMS_ITS | Patient Health Record ---
Author Organization [facility] Address [address] [place] [address] Care Team Providers Care Household Appliances Service Technician Name Role Phone ALE NULL M.D. Primary Care Provider Isra Rivera [phone] Allergies No Known Allergies Results Component Value Reference Range Notes Lipase Reviewed date:06/01/2024 05:32:27 PM Interpretation: Performing Lab:[facility], [address] [place] [phone] Notes/Report: Lipase 17 8-78 U/L Ferritin (Not yet reviewed b y provider) Interpretation: Performing Lab:[address] [address] Notes/Report: Ferritin 9 10-250 ng/mL Vitamin B12 and Folate (Not yet reviewed by provider) Interpretation: Performing Lab:[address] [address] Notes/Report: Vitamin B12 217 200-900 pg/mL NORMAL 200-900 PG/ML INDETERMINATE 160-199 PG/ML DEFICIENT < 160 PG/ML Folate 16.6 > or = 4.0 ng/mL Reference Values: > or = 4.0 ng/mL < 4.0 ng/mL suggests folate deficiency Methotrexate, aminopterin and folinic acid (leucovorin) are chemotherapeutic agents whose molecular structures are similar to folate; therefore, the Drawing Kiln Supervisor folate assay cannot be used for patients using these drugs. Complete Blood Count Auto Di ff Reviewed date:06/01/2024 05:28:58 PM Interpretation: Performing Lab:[facility], [address] [place] [address] Notes/Report: White Blood Count 7.6 4.8-10.8 X10*3/uL [...] Panel Reviewed date:06/01/2024 05:31:48 PM Interpretation: Performing Lab:[facility], [address] [place] [address] Notes/Report: Bilirubin Total 0.7 0.0-1.0 mg/dL Bilirubin Direct 0.1 0.0-0.5 mg/dL Aspartate Amino Transferase 17 5-31 U/L Alanine Aminotransferase 12 0-31 U/L Total Protein 6.2 6.5-8.0 g/dL Albumin Level 3.7 3.5-5.0 g/dL Alkaline Phosphatase 49 39-117 U/L Glucose, Whole Blood Reviewed date:06/01/2024 05:27:23 PM Interpretation: Performing Lab:[facility], [address] [place] [phone] Notes/Report: Glucose, Whole Blood 85 60-115 mg/dL METER # : [id number] Pathology Reviewed date:07/16/2024 12:43:37 AM Interpretation: Performing Lab:[facility], [address] [place] [phone] Notes/Report: US abdomen complete Reviewed date:07/16/2024 12:44:47 AM Interpretation: Performing Lab: Notes/Report: [address] [place] [address] Ultrasound Report Signed Patient: Melisa Wakefield MR#: [id number] 520 : 1975 Acct:[id number] Age/Sex: 49 / F ADM Date: 06/22/24 Loc: HO.US Attending Dr: Isra Muñoz MD Ordering Physician: Isra Muñoz MD Date of Service: 06/22/24 Procedure(s): US abdomen complete Accession Number(s): [id number] cc: Frank Duffy MD; Isra Muñoz MD [...] OV> 06/22/24 0810 DD/ TD/TT: 06/22/24 0745 Creative Producer: Blood Urea Nitrogen Reviewed date:08/09/2024 09:12:57 AM Interpretation: Performing Lab:[facility], [address] [place] [phone] Notes/Report: Blood Urea Nitrogen 17 9-16 mg/dL Creatinine Reviewed date:08/11/2024 10:07:48 PM Interpretation: Performing Lab:[facility], [address] [place] [phone] Notes/Report: Creatinine 0.63 0.5-1.4 mg/dL Estimated Glomerular Filt Rate > 60 Chronic Kidney Disease: Estimated GFR < 60 mL/min/1.73m2 Severe Kidney Disease: Estimated GFR < 15 mL/min/1.73m2 CT abdomen pelvis w con (Not yet reviewed by provider) Interpretation: Performing Lab: Notes/Report: [address] [place] [address] CT Scan Report Signed Patient: Melisa Wakefield MR#: [id number] 520 : 1975 Acct:[id number] Age/Sex: 49 / F ADM Date: 08/15/24 Loc: HO.CT Attending Dr: Isra Muñoz MD Ordering Physician: Isra Muñoz MD Date of Service: 08/15/24 Procedure(s): CT abdomen pelvis w IV con Accession Number(s): [id number] cc: Frank Duffy MD; Isra Muñoz MD Report Number: [id number]: Total DLP = 514.00 mGy-cm EXAMINATION: CT [...] 03:31 PM EDT RP Dictated By: Jose Keraney MD Signed By: <Electronically signed by Jose Jacobs MD in OV> 08/15/24 1531 DD/ 1436 TD/TT: 08/15/24 1450 Creative Producer: Complete Blood Count Auto Di ff (Not yet reviewed by provider) Interpretation: Performing Lab:[facility], [address] [place] [address] Notes/Report: White Blood Count 8.4 4.8-10.8 X10*3/uL [...] Abs Auto 0.000 0.0-0.012 X10*3/uL IRON PROFILE Reviewed date:12/29/2024 09:38:12 PM Interpretation: Performing Lab:[facility], [address] [place] [phone] Notes/Report: Iron 58 30-160 mcg/dL Total Iron Binding Capacity 293 228-428 mcg/d L Percent Iron Saturation 20 15-50 % Unsaturated Iron Binding 235 Reason For Referral Referring Provider First Name Frank Referring Provider Last Name Mugg (RETIR ED) Referring Provider Speciality Internal edicine Referred Organization [facility] Referred Provider Isra Muñoz Referred Address [address] [place] [address] [address],[place], [place],[address],[place] Referred Provider Specialty Gastroentero logy Referral Priority Routine Referring Provider First Name Frank Referring Provider Last Name Mugg (RETIR ED) Referring Provider Speciality Internal edicine Referred Organization [facility] Referred Provider Isra Muñoz Referred Address [address] [place] [address], [address],[place], [place],[address],[place] Referred Provider Specialty Gastroentero logy Referral Priority [...] Status Risk Notes Problem Colon cancer screening (172592282) Colon cancer screening (Z12.11) Active confirmed Problem Nausea (440144911) Nausea (R11.0) Active confir med Problem Duodenitis (19397223) Duodenitis (K29.80) Active confirmed Problem Epigastric pain (86426341) Abdominal pain, epigastric (R10.13) Active confirmed Problem Hiatal hernia (23333175) Hiatal hernia (K44.9) Active confirmed Problem Anemia (048606687) Anemia (D64.9) Active confir med Problem Gastric ulcer (580842062) Gastric ulcer (K25.9) Active confirmed Problem Gastroesophageal reflux disease (disorder) (714736422) Chronic GERD (K21.9) Active confirmed Vital Signs Temperature 98.7 degrees Fahrenheit 12/12/2024 Blood pressure diastolic 01 mm Hg 12/12/2024 Height 69 in 12/12/2024 Blood pressure systolic 001 mm Hg 12/12/2024 Weight 192 lbs 12/12/2024 BMI 28.35 kg/m2 12/12/2024 Procedures Procedure Date Ordered Date Performed Result Body Sit e UPPER GI ENDOSCOPY 12/12/2024 N/A Encounters Encounter Location Date Provider Diagnosis [facility] [place] [address] [place], [place] [phone] 06/01/2024 Isra Muñoz Gastric ulcer K25.9 ; Hiatal hernia K44.9 ; Duodenitis K29.80 and Abdominal pain R10.9 [facility] [address] [place] [address] 05/30/2024 Isra Muñoz Abdominal pain, epigastric R10.13 and Chronic GERD K21.9 [facility] [address] [place] [address] 12/12/2024 Isra Wanda Anemia D64.9 ; Gastr ic ulcer K25.9 ; Hiatal hernia K44.9 ; Nausea R11.0 and Colon cancer screening Z12.11 [facility] [address] [place] [address] 12/29/2024 Isra Wanda [facility] [address] [place] [address] 05/31/2024 Isra Muñoz [facility] [address] [place] [address] 06/01/2024 Isra Wanda [facility] [address] [place] [address] 07/16/2024 Isra Muñoz Postprandial epigastric pain R10.13 and Gastric ulcer K25.9 [facility] [address] [place] [address] 09/06/2024 Isra Muñoz Assessments Encounter Date Diagnosis [...] keep you advised of her progress. 12/12/2024 Anemia (ICD-10 - D64.9) Overall, Tamika [...] IBC (FE) 12/12/2024 CBC w DIFF 12/12/2024 CBC w DIFF 05/30/2024 CT ABD & PELVIS WITH CONTRAST 07/16/2024 Complete Blood Count Auto Diff Creatinine 07/16/2024 Ferritin 12/12/2024 Vitamin B12 and Folate 12/12/2024 CT abdomen pelvis w con 08/15/2024 US abdomen complete 05/30/2024 Future Test Test Name Order Date UPPER GI ENDOSCOPY 05/30/2024 Next Appt Details Provider Name:Isra Muñoz , 02/22/2025 02:30:00 PM, [address] [place] [address] , [place], [place], [phone], Insurance Providers Payer Name Payer Address Payer Phone Subscriber Number Group Number Insured Name Patient Relationship to Insured Coverage Start Date Coverage End Date [facility] [address] [address] [place], [place] [id number] MELISA WAKEFIELD Self - patient is the insured MEDICAID OF [facility] [address] [place] [address] [id number] MELISA WAKEFIELD Self - patient is the insured Medical (General) History Medical History History ICD Code NIDDM Asthma Denies [place],CVA,renal disease Kidney stones Muscle spasms, tendonitis, arthritis Colonoscopy in 2021 [place] [facility]- polyps removed- recommended a F/U in 5-7 [...]
== END 2025-01-10 15:27 | disposition home or self-care (01) ==
LOC: HO.MAMMO 15:26
PROVIDERS: PCP Student in an Organized Health Care Education/Training Program; Visit Provider Obstetrics & Gynecology
DX: Z12.31 Encounter for screening mammogram for malignant neoplasm of breast (principal)
CPT/HCPCS: 77063; 77067

== ENCOUNTER → 2025-01-10 15:45 | Outpatient (BNV) | payer OTHER, SELFPAY | PROVIDERS: PCP Student in an Organized Health Care Education/Training Program; Visit Provider Internal Medicine | DX: Z12.31 Encounter for screening mammogram for malignant neoplasm of breast (principal) | CPT/HCPCS: 77063; 77067 ==

== ENCOUNTER 2025-01-25 15:04 | Outpatient (AMB) | payer OTHER, SELFPAY ==
--- NOTE | 2025-01-25 15:09 | MHC.OFFVIS ---
Vital Signs 01/25/25 15:14 Height 5 ft 9 in Weight 200 lb 2 oz BMI 29.6 BP 145/79 H Blood Pressure Location Rt brachial Position Sitting Pulse 104 H Pulse Source Pulse Oximeter Pulse Oximetry (%) 97 Oxygen Delivery Method Room Air Intake Visit Reasons: Polyneuropathy, unspecified Intake Note: Pain today 09/18 Instrumentation And Control Technician Required: No Accompanied by: Self / Same As Patient Allergies morphine Allergy (Intermediate, Verified 01/25/25 15:19) Headache antiseptic wipes Allergy (Severe, Uncoded 06/01/24 14:05) Rash HPI Comments Details: The patient is a 50-year-old female presenting with polyneuropathy. She reports having pain in her feet for about two years, which is not the bulk of her pain as she also experiences pain in her shoulder, lower back and hip. The pain in her feet is described as sharp, tingling, stabbing, with sensations of burning and pins and needles, primarily affecting the bottom of her feet. The patient has a history of diabetes mellitus, with her last A1c recorded at 5.7, indicating good control of her diabetes. She denies any history of cancer, vitamin B12 deficiencies, anemia, exposure to toxins or substance abuse. She also reports chronic shoulder pain, arthritis, and migraines, with the hip pain being a more recent development over the last three to four months. The pain ranges between four to eight on a scale, worsening at night and improving slightly in the late morning, affecting daily activities, functioning, and sleep. The patient has been prescribed hydrocodone four times a day, initially by Dr. Duffy and continued by Dr. Lino, although there is a discussion about reducing the frequency. She has tried gabapentin and pregabalin, both of which caused severe drowsiness, leading to discontinuation. Topamax was also tried for migraines but resulted in severe sleepiness and is not currently being used. The patient has a history of breaking her left foot twice and left ankle once, but not in the last two years. She has pending EMG study next month which we will review first before proceeding with further tests. - Onset: Pain in feet for two years, hip pain for three to four months. - Quality: Sharp, tingling, stabbing, burning, pins and needles. - Location: Primarily in feet, with additional pain in shoulder and hip. - Radiation: Pain does not radiate beyond described areas. - Exacerbating Factors: Worse at night, with weather changes and movement. - Relieving Factors: None specifically mentioned. - Interference: Affects daily activities, functioning, and sleep. - Affect: Pain impacts daily activities and sleep. - Analgesia: Currently using hydrocodone four times a day, pain level ranges from 4 to 8/10. - Adverse Effects: Severe drowsiness from gabapentin, pregabalin, and Topamax. - Activities of Daily Living: Pain affects functioning and sleep, with no specific functional goals mentioned. - Aberrant Drug Related Behaviors: No aberrant behaviors reported. [facility] Medical History (Updated 01/25/25 @ 15:45 by JOE Costello) Lumbar spondylosis Rosacea Hypertension Neuropathy Kidney stones Arthritis Asthma Diabetes Migraine Surgical History H/O dilation and curettage H/O lithotripsy History of hysterectomy Family History Mother Asthma Father Heart attack Paternal Grandmother Diabetes Social History Household Members: Children Housing: Apartment Are you a primary medicare biller to a significant other at home: No Do you presently have visiting nurse or other home services: No Alcohol intake: current Alcohol intake frequency: holidays/special occasions only Patient Tobacco Use Status: Former Tobacco user Tobacco use type: Cigarette Years Smoked: 3 e-Cigarette/Vaping Use: Never Used service: No Current occupational status: employed Current occupation: [employer] [place] [employer]-M# Sexual orientation: Straight/Heterosexual Gender identity: Female Review of Systems Const Details: - Neurological: Reports sharp, tingling, stabbing pain in feet, burning, pins and needle sensations, and numbness in toes. - Musculoskeletal: Reports chronic shoulder pain, right hip pain, and back arthritis. - Endocrine: Reports diabetes mellitus, A1c of 5.7. - Renal: Reports kidney stones. All systems reviewed & are unremarkable except as noted in HPI and below Physical Exam Vital Signs: Last Vital Signs Pulse 104 H 01/25/25 15:14 BP 145/79 H 01/25/25 15:14 Pulse Ox 97 01/25/25 15:14 Oxygen Delivery Method Room Air 01/25/25 15:14 BMI result Body Mass Index 29.6 General: Appears afebrile. Alert and oriented. Mood and affect appropriate. Follows and participates in conversation appropriately. Respiratory effort is unlabored. No cough. Able to transition from sit to stand unassisted. Ambulates with bilaterally normal heel strike and toe off. Back/Spine/Pelvis Cervical Spine: normal cervical lordosis, cervical ROM normal, No Cervical spine tenderness and No step off deformity Thoracic/Lumbar Spine: thoracic and lumbar spine normal to inspection, Lasegue's sign negative, straight leg raise negative bilaterally, pain with thoraco-lumbar ROM, thoraco-lumbar ROM limited, No thoracic spinal tenderness and No lumbar spinal tenderness Extrem Other: There is a decreased sensation over the soles of both feet and toes, left>right. Reports numbness, burning, tingling, pins and needles and bilateral foot pain, worse at night time. No breaks in the skin. No soft tissue swelling or warmth. +2 pedal pulses bilaterally. General: Yes capillary refill normal, Yes no joint enlargement, Yes no clubbing, cyanosis or edema, Yes no calf tenderness and Yes normal gait Right lower extremity: foot Details: normal capillary refill and toes with normal ROM; no tenderness, no unusual warmth, no ecchymosis and no crepitus Left lower extremity: foot Details: normal capillary refill, toes with normal ROM and no edema; no tenderness, no unusual warmth, no ecchymosis and no crepitus Results Reviewed Results Reviewed: XR hips YOVANI min 3V 07/17/24 CLINICAL HISTORY: R O DJD, PAIN Findings: No acute fracture or dislocation. Mild degenerative changes at both hips, with mild femoral-acetabular joint space narrowing and regions of subchondral sclerosis. The soft tissues are unremarkable. IMPRESSION: No acute findings. Mild degenerative changes at both hips. XR Ankle Yovani min 3V 07/17/24 Right ankle: No acute fractures or dislocations. No significant loss of joint space, osteophytes, or erosions. No ankle effusion. No radiopaque foreign body. Left ankle: No acute fractures or dislocations. Mild degenerative changes throughout the ankle. No ankle effusion. No radiopaque foreign body. IMPRESSION: 1. No acute findings. 2. Mild left-sided degenerative changes. CT abdomen pelvis w IV con 08/15/24 OSSEOUS STRUCTURES: Multilevel thoracic and lumbar spondylosis. No acute fracture or gross listhesis. Degenerative changes in the symphysis pubis. No lytic or thickness. Spina bifida occulta S1. Assessment & Plan Assessment & Plan (1) Bilateral foot pain: Code(s): M79.671 - Pain in right foot; M79.672 - Pain in left foot Category: Medical (2) Peripheral neuropathy: Code(s): G62.9 - Polyneuropathy, unspecified Category: Medical (3) Chronic pain syndrome: Code(s): G89.4 - Chronic pain syndrome Category: Medical (4) Lumbar spondylosis: Code(s): M47.816 - Spondylosis without myelopathy or radiculopathy, lumbar region Category: Medical Plan The plan includes awaiting the results of the EMG scheduled for February 27 to confirm the diagnosis of neuropathy and assess type of neuropathy. If neuropathy is confirmed, a spinal cord stimulator may be considered to manage chronic pain in the back and lower extremities. Informational pamphlets were provided to patient, although she is hesitant towards implantable devices but would like to review SCS trial and implant information. We will obtain bilateral foot imaging to assess degree of degenerative changes. The patient is advised to continue current pain management with hydrocodone, while considering a reduction in frequency as discussed with Dr. Lino. All questions and concerns have been answered and patient agreed with the treatment plan. Follow up for EMG/xray results and sooner as needed. Patient was informed and verbally consented to the use of an ambient scribe for clinic note documentation during this visit. Orders: Orders XR Foot Yovani 3V Today G62.9 - Polyneuropathy, unspecified, M79.671 - Pain in right foot, M79.672 - Pain in left foot Coding Level of Care Code New Pt Level 4 (01650) Diagnoses Bilateral foot pain M79.671; M79.672 Peripheral neuropathy G62.9 Chronic pain syndrome G89.4 Lumbar spondylosis M47.816
[2025-01-25 15:14] VITALS: BP 145/79; PULSE 104; O2SAT 97; BMI 29.6
== END 2025-01-25 15:37 | disposition home or self-care (01) ==
LOC: HO.PMC 15:05
PROVIDERS: PCP Student in an Organized Health Care Education/Training Program; Visit Provider Nurse Practitioner Family
DX: M79.671 Pain in right foot (principal); M79.672 Pain in left foot; G62.9 Polyneuropathy, unspecified; G89.4 Chronic pain syndrome; M47.816 Spondylosis without myelopathy or radiculopathy, lumbar region
CPT/HCPCS: 99204

== ENCOUNTER → 2025-01-25 15:04 | Outpatient (BNVA) | payer OTHER, SELFPAY | PROVIDERS: PCP Student in an Organized Health Care Education/Training Program; Visit Provider Nurse Practitioner Family | DX: G89.4 Chronic pain syndrome (principal); G62.9 Polyneuropathy, unspecified; M79.671 Pain in right foot; M79.672 Pain in left foot; M47.816 Spondylosis without myelopathy or radiculopathy, lumbar region | CPT/HCPCS: 99202 ==

== ENCOUNTER 2025-02-12 15:13 | Outpatient (REF) | payer OTHER, SELFPAY ==
--- OUTSIDE RECORDS SUMMARY | 2024-06-01 10:00 | XMS_ITS ---
Author Organization [facility] Address [address] [place] [address] Care Team Providers Care Assembler Steam And Gas Turbine Name Role Phone ALE NULL M.D. Primary Care Provider Isra Rivera [phone] Problems Problem Type SNOMED Code ICD Code Onset Dates Problem Status W/U Status Risk Notes Problem Gastric ulcer (171733349) Gastric ulcer (K25.9) Active confirmed Problem Duodenitis (20815480) Duodenitis (K29.80) Active confirmed Encounters Encounter Location Date Provider Diagnosis [facility] [place] [address] [place] [phone] 06/01/2024 Isra Muñoz Gastric ulcer K25. 9 ; Hiatal hernia K44.9 ; Duodenitis K29.80 and Abdominal pain R10.9 Assessments Encounter Date Diagnosis (ICD Code) Assessment Notes Treatment Notes Treatment Clinical Notes Section Notes 06/01/2024 Gastric ulcer (ICD-10 - K25.9) 06/01/2024 Hiatal hernia (ICD-10 - K44.9) 06/01/2024 Duodenitis (ICD-10 - K29.80) 06/01/2024 Abdominal pain (ICD-10 - R10.9) Plan Of Treatment Next Appt Details Provider Name:Isra Muñoz , 02/22/2025 02:30:00 PM, [address] [place] [address], [phone], Progress Notes * BO WAKEFIELD LDOB:1974 (50 yo F)Acc No.[id number]:06/01/2024 EGD/MAC Patient: BO KATHLEEN Provider: Jalen Muñoz MD :1975 A ge:49 Y S ex:Female Date:06/01/2024 Address:[address] [place], [place] [phone] Pcp:ALE NULL M.D. Subjective: * Chief Complaints: * * Medical History: Objective: * Vitals: Assessment: * Assessment: 1. G astric ulcer - K25.9 (Primary) 2 . H iatal hernia - K44.9 ?3. D uodenitis - K29.80 4 . A bdominal pain - R10.9 Plan: * Treatment: * Procedure Codes: 4 3239 UPPER GI ENDOSCOPY, BIOPSY * * The named appointment provid er may or may not be the originator of this progress note, and it is not deemed complete until electronically signed by the appointment provider. Sign off status: Pending * Provider: Jalen Muñoz MD Date: 0 06/01/2024 Generated for Jose rosario/Becca/Albasmitting on: 1 04/14/2024 06:06 PM EST
--- OUTSIDE RECORDS SUMMARY | 2024-09-13 06:20 | XMS_ITS ---
Author Organization [facility] Address [address] [facility] [address] [place] [address] Care Team Providers Care Standpipe Tender Name Role Phone ALE NULL M.D. Primary Care Provider Isra Rivera [phone] REASON FOR VISIT stomach pressure and nausea after eating Encounters Encounter Location Date Provider Diagnosis [facility] [address] [address] 09/13/2024 Isra Muñoz Plan Of Treatment Next Appt Details Provider Name:Isra Muñoz , 02/22/2025 02:30:00 PM, [address] [place] [address] , [place], [place], [phone], Progress Notes * BO WAKEFIELD LDOB:1974 (50 yo F)Acc No.[id number]:09/13/2024 Progress Notes Patient: BO KATHLEEN Provider: Jalen Muñoz MD :1975 A ge:49 Y S ex:Female Date:09/13/2024 Address:[address] [place], [place] [phone] Pcp:ALE NULL M.D. Subjective: * Chief Complaints: * 1 . Stomach pressure and nausea after eating. * Medical History: Objective: * Vitals: Assessment: Plan: * Treatment: * * The named appointment provid er may or may not be the originator of this progress note, and it is not deemed complete until electronically signed by the appointment provider. Sign off status: Pending * Provider: Jalen Muñoz MD Date: 0 09/13/2024 Generated for Jose rosario/Becca/Gopal on: 04/14/2024 06:07 PM EST
--- OUTSIDE RECORDS SUMMARY | 2025-01-25 04:30 | XMS_ITS ---
Author Organization [facility] Address [address] [address] Care Team Providers Care Cad Operator Name Role Phone ALE NULL M.D. Primary Care Provider Isra Rivera [phone] REASON FOR VISIT Anemia Medications Medication SIG (Take, Route, Fr equency, Duration) Notes Start Date End Date Status Protonix 40 MG 1 Orally Twice a day with one before the morning meal and one before the evening meal; Duration: 30 day(s) Active Encounters Encounter Location Date Provider Diagnosis [facility] [address] [address] 01/25/2025 Isra Muñoz Plan Of Treatment Medication Medication Name Sig Start Date Stop Date Notes Protonix 40 MG 1 Orally Twice a day with one before the morning meal and one before the evening meal; Duration: 30 day(s) Next Appt Details Provider Name:Isra Muñoz , 02/22/2025 02:30:00 PM, [address] [address], [phone], Progress Notes * BO WAKEFIELD LDOB:1974 (50 yo F)Acc No.[id number]:01/25/2025 Patient: BO KATHLEEN :1975 A ge:50 Y S ex:Female Address:[address] [place] [address] * Refills Refill Protonix Tablet Delayed Release, 40 MG, Orally, 60, 1, Twice a day with one before the morning meal and one before the evening meal, 30 day(s), Refills=6 Subjective: * Chief Complaints: * A nemia * Medical History: * Surgical History: * Hospitalization/Major Diagno stic Procedure: * Medications: Objective: * Vitals: * Physical Examination: Assessment: Plan: * Treatment: * Procedure Codes: * * Date:
--- NOTE | ~2025-02-12 | US_ITS ---
EXAMINATION: US RETROPERITONEAL LIMITED (RENAL ONLY) CLINICAL INFORMATION: Follow-up left hydronephrosis and left renal stone. COMPARISON: Previous CT of the abdomen and pelvis August 2024 TECHNIQUE: Bowie scale and color imaging of the kidneys FINDINGS: RIGHT KIDNEY: 12 x 4.4 x 5.8 cm (SAG x AP x TRV). The kidney is normal in size, contour, and echogenicity. Renal cortical thickness is normal. No calculi or focal parenchymal lesions. No hydronephrosis. LEFT KIDNEY: 12.1 x 4.7 x 6.1 cm (SAG x AP x TRV). The kidney is normal in size, contour, and echogenicity. Renal cortical thickness is normal. No calculi or focal parenchymal lesions. No hydronephrosis. US/US renal BI IMPRESSION: Normal renal ultrasound. No stone or hydronephrosis seen. Electronically signed by: Adrienne Masters MD 02/12/2025 03:59 PM EST
--- NOTE | ~2025-02-12 | XR_ITS ---
EXAMINATION: XR FOOT, YOVANI 3V CLINICAL INFORMATION: M79.671 - Pain in right foot COMPARISON: None available. TECHNIQUE: AP, lateral, and oblique views of the left foot. FINDINGS: RIGHT FOOT: No fracture, dislocation, or suspicious bone lesion. There is normal alignment. Joint spaces are preserved. Normal plantar arch. There is a small dorsal calcaneal spur. Soft tissues appear normal. LEFT FOOT: No fracture, dislocation, or suspicious bone lesion. There is normal alignment. Joint spaces are preserved. Normal plantar arch. There is a small dorsal calcaneal spur. Soft tissues appear normal. XR/XR Foot Yovani 3V IMPRESSION: 1. No acute bony or soft tissue abnormalities in either foot. Electronically signed by: Onel Long MD 02/12/2025 03:42 PM JESSICA
--- OUTSIDE RECORDS SUMMARY | 2025-02-12 18:07 | XMS_ITS | Patient Health Record ---
Author Organization [facility] Address [address] [place] [address] Care Team Providers Care Materials Planning Analyst Name Role Phone ALE NULL M.D. Primary Care Provider Isra Rivera [phone] Allergies No Known Allergies Results Component Value Reference Range Notes Lipase Reviewed date:06/01/2024 05:32:27 PM Interpretation: Performing Lab:[facility], [address] [place] [phone] Notes/Report: Lipase 17 8-78 U/L Ferritin (Not yet reviewed b y provider) Interpretation: Performing Lab:[address] [address] Notes/Report: Ferritin 9 10-250 ng/mL Vitamin B12 and Folate (Not yet reviewed by provider) Interpretation: Performing Lab:[address] [phone] Notes/Report: Vitamin B12 217 200-900 pg/mL NORMAL 200-900 PG/ML INDETERMINATE 160-199 PG/ML DEFICIENT < 160 PG/ML Folate 16.6 > or = 4.0 ng/mL Reference Values: > or = 4.0 ng/mL < 4.0 ng/mL suggests folate deficiency Methotrexate, aminopterin and folinic acid (leucovorin) are chemotherapeutic agents whose molecular structures are similar to folate; therefore, the [employer]ement [employer]er folate assay cannot be used for patients using these drugs. Complete Blood Count Auto Di ff Reviewed date:06/01/2024 05:28:58 PM Interpretation: Performing Lab:[facility], [address] [place] [phone] Notes/Report: White Blood Count 7.6 4.8-10.8 X10*3/uL [...] Panel Reviewed date:06/01/2024 05:31:48 PM Interpretation: Performing Lab:[facility], [address] [place] [phone] Notes/Report: Bilirubin Total 0.7 0.0-1.0 mg/dL Bilirubin Direct 0.1 0.0-0.5 mg/dL Aspartate Amino Transferase 17 5-31 U/L Alanine Aminotransferase 12 0-31 U/L Total Protein 6.2 6.5-8.0 g/dL Albumin Level 3.7 3.5-5.0 g/dL Alkaline Phosphatase 49 39-117 U/L Glucose, Whole Blood Reviewed date:06/01/2024 05:27:23 PM Interpretation: Performing Lab:[facility], [address] [place] [phone] Notes/Report: Glucose, Whole Blood 85 60-115 mg/dL METER # : [id number] Pathology Reviewed date:07/16/2024 12:43:37 AM Interpretation: Performing Lab:[facility], [address] [place] [phone] Notes/Report: US abdomen complete Reviewed date:07/16/2024 12:44:47 AM Interpretation: Performing Lab: Notes/Report: [address] [place] [address] Ultrasound Report Signed Patient: Melisa Wakefield MR#: [id number] 520 : 1975 Acct:[id number] Age/Sex: 49 / F ADM Date: 06/22/24 Loc: HO.US Attending Dr: Isra Muñoz MD Ordering Physician: Isra Muñoz MD Date of Service: 06/22/24 Procedure(s): US abdomen complete Accession Number(s): [id number] cc: Frank Duffy MD; Isra Muñoz MD [...] OV> 06/22/24 0810 DD/ TD/TT: 06/22/24 0745 Shop Manager: Blood Urea Nitrogen Reviewed date:08/09/2024 09:12:57 AM Interpretation: Performing Lab:[facility], [address] [place] [phone] Notes/Report: Blood Urea Nitrogen 17 9-16 mg/dL Creatinine Reviewed date:08/11/2024 10:07:48 PM Interpretation: Performing Lab:[facility], [address] [place] [phone] Notes/Report: Creatinine 0.63 0.5-1.4 mg/dL Estimated Glomerular Filt Rate > 60 Chronic Kidney Disease: Estimated GFR < 60 mL/min/1.73m2 Severe Kidney Disease: Estimated GFR < 15 mL/min/1.73m2 CT abdomen pelvis w con (Not yet reviewed by provider) Interpretation: Performing Lab: Notes/Report: [address] [place] [address] CT Scan Report Signed Patient: Melisa Wakefield MR#: [id number] 520 : 1975 Acct:[id number] Age/Sex: 49 / F ADM Date: 08/15/24 Loc: HO.CT Attending Dr: Isra Muñoz MD Ordering Physician: Isra Muñoz MD Date of Service: 08/15/24 Procedure(s): CT abdomen pelvis w IV con Accession Number(s): [id number] cc: Frank Duffy MD; Isra Muñoz MD Report Number: [id number]: Total DLP = 514.00 mGy-cm EXAMINATION: CT [...] 08/15/24 1531 DD/ 1436 TD/TT: 08/15/24 1450 Shop Manager: Complete Blood Count Auto Di ff (Not yet reviewed by provider) Interpretation: Performing Lab:[facility], [address] [place] [phone] Notes/Report: White Blood Count 8.4 4.8-10.8 X10*3/uL [...] PROFILE Reviewed date:12/29/2024 09:38:12 PM Interpretation: Performing Lab:[facility], [address] [place] [phone] Notes/Report: Iron 58 30-160 mcg/dL Total Iron Binding Capacity 293 228-428 mcg/d L Percent Iron Saturation 20 15-50 % Unsaturated Iron Binding 235 Reason For Referral Referring Provider First Name Frank Referring Provider Last Name Mugg ([facility]) Referring Provider Speciality Internal edicine Referred Organization [facility] Referred Provider Isra Muñoz Referred Address [address] [place] [address] [address],[place], [place],[address],[place] Referred Provider Specialty Gastroentero logy Referral Priority Routine Referring Provider First Name Frank Referring Provider Last Name Mugg ([facility]) Referring Provider Speciality Internal edicine Referred Organization [facility] Referred Provider Isra Muñoz Referred Address [address] [place] [address], [address],[place], [place],[address],[place] Referred Provider Specialty Gastroentero logy Referral Priority [...] Orally Every 4 to 6 hours for nausea; Duration: 30 days 12/12/2024 Active Vicodin ES Active Baclofen 10 MG/20ML as directed Intrathe matt Three times a day Active Lisinopril 5 MG 2 tablets Orally Onc e a day Active Claritin 10 MG 1 tablet Orally Once a day Active Zofran 4 MG 1 tab Orally PRN; Duration: as needed days Active metFORMIN HCl 1000 MG 1 tablet with a me al Orally Twice a day; Duration: 30 days 05/30/2024 Active Protonix 40 MG 1 Orally Twice a day with one before the morning meal and one before the evening meal; Duration: 30 day(s) Active Arnuity Ellipta 100 MCG/ACT 1 puff [...] Status Risk Notes Problem Colon cancer screening (849364854) Colon cancer screening (Z12.11) Active confirmed Problem Nausea (527915295) Nausea (R11.0) Active confir med Problem Duodenitis (25305443) Duodenitis (K29.80) Active confirmed Problem Epigastric pain (02013985) Abdominal pain, epigastric (R10.13) Active confirmed Problem Hiatal hernia (33776569) Hiatal hernia (K44.9) Active confirmed Problem Anemia (945870644) Anemia (D64.9) Active confir med Problem Gastric ulcer (195539206) Gastric ulcer (K25.9) Active confirmed Problem Gastroesophageal reflux disease (disorder) (911635625) Chronic GERD (K21.9) Active confirmed Vital Signs Temperature 98.7 degrees Fahrenheit 12/12/2024 Blood pressure diastolic 01 mm Hg 12/12/2024 Height 69 in 12/12/2024 Blood pressure systolic 001 mm Hg 12/12/2024 Weight 192 lbs 12/12/2024 BMI 28.35 kg/m2 12/12/2024 Procedures Procedure Date Ordered Date Performed Result Body Sit e UPPER GI ENDOSCOPY 12/12/2024 N/A Encounters Encounter Location Date Provider Diagnosis [facility] Outpatient [address] [place], [place] [phone] 06/01/2024 Isra Muñoz Gastric ulcer K25.9 ; Hiatal hernia K44.9 ; Duodenitis K29.80 and Abdominal pain R10.9 [facility] [address] [facility] [address] [place] [address] 05/30/2024 Isra Muñoz Abdominal pain, epigastric R10.13 and Chronic GERD K21.9 [facility] [address] [place] [phone] 12/12/2024 Isra Muñoz Anemia D64.9 ; Gastr ic ulcer K25.9 ; Hiatal hernia K44.9 ; Nausea R11.0 and Colon cancer screening Z12.11 [facility] [address] [place] [phone] 12/29/2024 Isra Wanda [facility] [address] [place] [address] 01/25/2025 Isra Wanda [facility] [address] [place] [phone] 05/31/2024 Isra Muñoz [facility] [address] [place] [phone] 06/01/2024 Isra Muñoz [facility] [address] [place] [phone] 07/16/2024 Isra Muñoz Postprandial epigastric pain R10.13 and Gastric ulcer K25.9 [facility] [address] [place] [phone] 09/06/2024 Isra Muñoz Assessments Encounter Date Diagnosis [...] in 2021 while she was living in [place]. I did advise Tamika to contact me [...] in 2021 while she was living in [place]. I did advise Tamika to contact me [...] in 2021 while she was living in [place]. I did advise Tamika to contact me [...] in 2021 while she was living in [place]. I did advise Tamika to contact me [...] in 2021 while she was living in [place]. I did advise Tamika to contact me [...] ENDOSCOPY 05/30/2024 Next Appt Details Provider Name:Isra Godoy Wanda , 02/22/2025 02:30:00 PM, [address] [place] [address] , [place], [phone], Insurance Providers Payer Name Payer Address Payer Phone Subscriber Number Group Number Insured Name Patient Relationship to Insured Coverage Start Date Coverage End Date [employer] Plan [address] [address] [place], [place] [id number] MELISA WAKEFIELD Self - patient is the insured MEDICAID OF [facility] [address] [place] [address] [phone] [id number] MELISA WAKEFIELD Self - patient is the insured Medical (General) History Medical History History ICD Code NIDDM Asthma Denies ME,CVA,renal disease Kidney stones Muscle spasms, tendonitis, arthritis Colonoscopy in 2021 [facility]- polyps removed- recommended a F/U in 5-7 [...]
== END 2025-02-12 15:14 | disposition home or self-care (01) ==
LOC: HO.US 15:13
PROVIDERS: PCP Student in an Organized Health Care Education/Training Program; Visit Provider Student in an Organized Health Care Education/Training Program
DX: N20.0 Calculus of kidney (principal); M79.671 Pain in right foot; M79.672 Pain in left foot; G62.9 Polyneuropathy, unspecified
CPT/HCPCS: 73630; 76775

== ENCOUNTER → 2025-02-12 15:17 | Outpatient (BNV) | payer OTHER, SELFPAY | PROVIDERS: PCP Student in an Organized Health Care Education/Training Program; Visit Provider Radiology Diagnostic Radiology | DX: N20.0 Calculus of kidney (principal); M79.671 Pain in right foot | CPT/HCPCS: 73630; 76775 ==